=== PATIENT | male | born 1985 | race Caucasian/White ===

== ENCOUNTER 2016-07-23 20:26 | Emergency (ER) | payer MEDICARE, OTHER ==
[2016-07-23 20:55] VITALS: BP 150/75; PULSE 70; RESP 16; TEMP 99.3
--- NOTE | 2016-07-23 21:11 | ED ---
ENT HPI - General Chief complaint: ENT Stated complaint: burning in throat Time Seen by Provider: 07/23/16 20:59 Source: patient, RN notes reviewed Mode of arrival: ambulatory Limitations: no limitations - History of Present Illness Initial comments: This is a pleasant 31-year-old male presents emergency department complaining of a scratchy throat, runny nose, and postnasal drainage. Patient also states he has nasal congestion. Patient has not had a cough for a fever. Patient denies any neck stiffness. Patient denies any shortness of breath or chest pain. No abdominal pain. No nausea or vomiting. No skin rashes or lesions. No ear pain. No difficulty swallowing - Related Data Home Medications Medication Instructions Recorded Confirmed ARIPiprazole [Abilify] 5 mg PO DAILY 11/02/14 01/24/16 FLUoxetine HCL [Prozac Weekly] 90 mg PO WEEKLY 11/02/14 01/24/16 busPIRone HCL [Buspar] 30 mg PO BID 11/02/14 01/24/16 Indomethacin [Indocin] 25 mg PO TID 08/01/15 01/24/16 Previous Rx's Medication Instructions Recorded Loratadine [Claritin] 10 mg PO DAILY #30 tab 01/24/16 methylPREDNISolone [Medrol] 4 mg PO DIRECTED #1 tab.ds.pk 07/23/16 Allergies Allergy/AdvReac Type Severity Reaction Status Date / Time amphetamine aspartate Allergy Unknown Verified 01/24/16 22:24 [From Adderall] amphetamine sulfate Allergy Unknown Verified 01/24/16 22:24 [From Adderall] dextroamphetamine saccharate Allergy Unknown Verified 01/24/16 22:24 [From Adderall] dextroamphetamine sulfate Allergy Unknown Verified 01/24/16 22:24 [From Adderall] methylphenidate HCl Allergy Unknown Verified 01/24/16 22:24 [From Ritalin] Review of Systems ROS Statement: Those systems with pertinent positive or pertinent negative responses have been documented in the HPI. ROS Other: All systems not noted in ROS Statement are negative. Past Medical History Past Medical History: No Reported History Additional Past Medical History / Comment(s): OBSESSIVE COMPULSIVE DISORDER. History of Any Multi-Drug Resistant Organisms: None Reported Past Surgical History: No Surgical Hx Reported Past Psychological History: Anxiety Smoking Status: Never smoker Past Alcohol Use History: None Reported Past Drug Use History: None Reported General Exam - General Exam Comments Initial Comments: Well-developed, well-nourished male with no distress Limitations: no limitations General appearance: alert, in no apparent distress Head exam: Present: atraumatic, normocephalic, normal inspection Eye exam: Present: normal appearance, PERRL, EOMI. Absent: scleral icterus, conjunctival injection, periorbital swelling ENT exam: Present: normal exam, normal oropharynx, mucous membranes moist, TM's normal bilaterally, normal external ear exam Neck exam: Present: normal inspection, full ROM. Absent: tenderness, meningismus, lymphadenopathy Respiratory exam: Present: normal lung sounds bilaterally. Absent: respiratory distress, wheezes, rales, rhonchi, stridor Cardiovascular Exam: Present: regular rate, normal rhythm, normal heart sounds. Absent: systolic murmur, diastolic murmur, rubs, gallop, clicks GI/Abdominal exam: Present: soft, normal bowel sounds. Absent: distended, tenderness, guarding, rebound, rigid Extremities exam: Present: normal inspection, full ROM, normal capillary refill. Absent: tenderness, pedal edema, joint swelling, calf tenderness Back exam: Present: normal inspection Neurological exam: Present: alert, oriented X3, CN II-XII intact Psychiatric exam: Present: normal affect, normal mood Skin exam: Present: warm, dry, intact, normal color. Absent: rash Course Vital Signs 07/23/16 20:52 Temperature 99.3 F Pulse Rate 70 Respiratory 16 Rate Blood Pressure 150/75 O2 Sat by Pulse 98 Oximetry Medical Decision Making - Medical Decision Making Patient appears have a viral upper respiratory infection. Patient treated conservatively for viral infection. Patient educated on etiology and treatment measures. Return parameters discussed. Disposition Clinical Impression: Viral URI Disposition: HOME SELF-CARE Condition: Good Instructions: Cold Symptoms (ED) Additional Instructions: Alternate acetaminophen and ibuprofen, [id number], as directed for general discomfort. Follow-up as directed.Return to the ER at once if the symptoms worsen or problems or difficulties arise. Prescriptions: methylPREDNISolone [Medrol] 4 mg PO DIRECTED #1 tab.ds.pk Referrals: Radha Velasquez MD [Primary Care Provider] - 1-2 days Time of Disposition: 21:04
== END 2016-07-23 21:12 | disposition home or self-care (01) ==
LOC: EC 20:26
DX: J06.9 Acute upper respiratory infection, unspecified (principal); F41.9 Anxiety disorder, unspecified; F42.9 Obsessive-compulsive disorder, unspecified; Z79.1 Long term (current) use of non-steroidal anti-inflammatories (NSAID); Z79.899 Other long term (current) drug therapy; Z88.8 Allergy status to other drugs, medicaments and biological substances
CPT/HCPCS: 99283

== ENCOUNTER 2017-07-12 20:04 | Emergency (ER) | payer MEDICARE, OTHER ==
[2017-07-12 20:13] VITALS: BP 136/83; PULSE 73; RESP 16; TEMP 99.1
--- NOTE | 2017-07-12 21:12 | XR ---
EXAMINATION TYPE: XR chest 2V DATE OF EXAM: 07/12/2017 COMPARISON: NONE HISTORY: Productive cough TECHNIQUE: Frontal and lateral views of the chest are obtained. FINDINGS: Heart and mediastinum are normal. Lungs are clear. Diaphragm is normal. Bony thorax appear s normal. IMPRESSION: Normal chest. No change.
--- NOTE | 2017-07-12 22:20 | ED ---
General Adult HPI - General Chief complaint: Upper Respiratory Infection Stated complaint: cough/congestion Time Seen by Provider: 07/12/17 21:21 Source: patient, RN notes reviewed Mode of arrival: ambulatory Limitations: no limitations - History of Present Illness Initial comments: 32-year-old male presents to the emergency department for a chief complaint of cough 2 days. Patient states the cough started yesterday. Patient states it is a productive cough with colored sputum. Patient denies any chronic lung conditions. Patient denies smoking. Patient denies fevers or chills at home. Patient denies shortness of breath or difficulty breathing. Patient denies congestion and the face or sore throat. Patient has no other complaints at this time including shortness of breath, chest pain, abdominal pain, nausea or vomiting, headache, or visual changes. - Related Data Home Medications Medication Instructions Recorded Confirmed ARIPiprazole [Abilify] 5 mg PO DAILY 11/02/14 01/24/16 FLUoxetine HCL [Prozac Weekly] 90 mg PO WEEKLY 11/02/14 01/24/16 busPIRone HCL [Buspar] 30 mg PO BID 11/02/14 01/24/16 Indomethacin [Indocin] 25 mg PO TID 08/01/15 01/24/16 Previous Rx's Medication Instructions Recorded Loratadine [Claritin] 10 mg PO DAILY #30 tab 01/24/16 methylPREDNISolone [Medrol] 4 mg PO DIRECTED #1 tab.ds.pk 07/23/16 Azithromycin [Zithromax Z-pack] 250 mg PO DIRECTED #6 tab 07/12/17 predniSONE 50 mg PO DAILY #5 tablet 07/12/17 Allergies Allergy/AdvReac Type Severity Reaction Status Date / Time amphetamine aspartate Allergy Unknown Verified 07/12/17 20:13 [From Adderall] amphetamine sulfate Allergy Unknown Verified 07/12/17 20:13 [From Adderall] dextroamphetamine saccharate Allergy Unknown Verified 07/12/17 20:13 [From Adderall] dextroamphetamine sulfate Allergy Unknown Verified 07/12/17 20:13 [From Adderall] methylphenidate HCl Allergy Unknown Verified 07/12/17 20:13 [From Ritalin] Review of Systems ROS Statement: Those systems with pertinent positive or pertinent negative responses have been documented in the HPI. ROS Other: All systems not noted in ROS Statement are negative. Past Medical History Past Medical History: No Reported History Additional Past Medical History / Comment(s): OBSESSIVE COMPULSIVE DISORDER. History of Any Multi-Drug Resistant Organisms: None Reported Past Surgical History: No Surgical Hx Reported Past Psychological History: Anxiety Smoking Status: Never smoker Past Alcohol Use History: None Reported Past Drug Use History: None Reported General Exam Limitations: no limitations General appearance: alert, in no apparent distress Eye exam: Present: normal appearance, PERRL, EOMI. Absent: scleral icterus, conjunctival injection, periorbital swelling ENT exam: Present: normal exam, normal oropharynx, mucous membranes moist, TM's normal bilaterally, normal external ear exam Neck exam: Present: normal inspection. Absent: tenderness, meningismus, lymphadenopathy Respiratory exam: Present: normal lung sounds bilaterally. Absent: respiratory distress, wheezes, rales, rhonchi, stridor Cardiovascular Exam: Present: regular rate, normal rhythm, normal heart sounds. Absent: systolic murmur, diastolic murmur, rubs, gallop, clicks Course Vital Signs 07/12/17 20:08 Temperature 99.1 F Pulse Rate 73 Respiratory 16 Rate Blood Pressure 136/83 O2 Sat by Pulse 100 Oximetry Medical Decision Making - Medical Decision Making 32-year-old male presents to the emergency room for a chief complaint of cough 2 days. Patient denies any chronic lung condition such as asthma, COPD, smoking. Patient denies shortness of breath or difficulty breathing. Patient states he is coughing up mucus. X-ray done states no pneumonia as or acute lung abnormalities. Patient's vitals are within normal limits. No fevers here or at home. Patient will be discharged home with follow-up to primary care in 1 -2 days. He is to take azithromycin as well as prednisone. He is to return to the emergency department if he has any worsening symptoms including shortness of breath or difficulty breathing. Disposition Clinical Impression: Upper respiratory infection Disposition: HOME SELF-CARE Condition: Poor Instructions: Upper Respiratory Infection (ED) Additional Instructions: Please take prescriptions as directed. You may take over the counter cold medicine or decongestants. Please follow-up with primary care in 1-2 days. Return to the emergency department if you have any worsening symptoms, shortness of breath or difficult he breathing, or high fevers that cannot be reduced with Tylenol or Motrin. Prescriptions: Azithromycin [Zithromax Z-pack] 250 mg PO DIRECTED #6 tab predniSONE 50 mg PO DAILY #5 tablet Is patient prescribed a controlled substance at d/c from ED?: No Referrals: Radha Velasquez MD [Primary Care Provider] - 1-2 days Time of Disposition: 22:17
== END 2017-07-12 22:29 | disposition home or self-care (01) ==
LOC: EC 20:04
DX: J06.9 Acute upper respiratory infection, unspecified (principal); R05 Cough; F41.9 Anxiety disorder, unspecified; F42.9 Obsessive-compulsive disorder, unspecified; Z79.899 Other long term (current) drug therapy; Z88.8 Allergy status to other drugs, medicaments and biological substances
CPT/HCPCS: 71046; 99283

== ENCOUNTER 2018-02-21 23:18 | Emergency (ER) | payer MEDICARE, OTHER ==
[2018-02-21 23:28] VITALS: RESP 16
--- NOTE | 2018-02-22 01:35 | XR ---
EXAMINATION TYPE: XR chest 2V DATE OF EXAM: 02/22/2018 COMPARISON: NONE HISTORY: Chest pain TECHNIQUE: Frontal and lateral views of the chest are obtained. FINDINGS: Heart and mediastinum are normal. Lungs are clear. Diaphragm is normal. Bony thorax appear s normal. IMPRESSION: Normal chest. No change.
--- NOTE | 2018-02-22 01:59 | ED ---
Extremity Problem HPI - General Chief complaint: Extremity Problem,Nontraumatic Stated complaint: Rt Side/Chest Pain Time Seen by Provider: 02/22/18 01:08 Source: patient, RN notes reviewed, old records reviewed Mode of arrival: ambulatory Limitations: no limitations - History of Present Illness Initial comments: 32-year-old male presents for sensation of right-sided chest pain. Patient which is been having pains for the past week. It is worse to palpation over the right breasts and axillary. Patient denies any skin changes. Denies any falls or trauma. He denies any associated shortness of breath or cardiac description of chest pain. Denies palpitations. He has no history of heart disease. Patient reports he is right-handed. He does do a lot of work with his arms.Patient denies any recent fever, chills, shortness of breath, chest pain, back pain, abdominal pain, nausea vomiting, numbness or tingling, dysuria or hematuria, constipation or diarrhea, headaches or visual changes, or any other current symptoms - Related Data Home Medications Medication Instructions Recorded Confirmed ARIPiprazole [Abilify] 5 mg PO DAILY 11/02/14 01/24/16 FLUoxetine HCL [Prozac Weekly] 90 mg PO WEEKLY 11/02/14 01/24/16 busPIRone HCL [Buspar] 30 mg PO BID 11/02/14 01/24/16 Indomethacin [Indocin] 25 mg PO TID 08/01/15 01/24/16 Previous Rx's Medication Instructions Recorded Loratadine [Claritin] 10 mg PO DAILY #30 tab 01/24/16 methylPREDNISolone [Medrol] 4 mg PO DIRECTED #1 tab.ds.pk 07/23/16 Azithromycin [Zithromax Z-pack] 250 mg PO DIRECTED #6 tab 07/12/17 predniSONE 50 mg PO DAILY #5 tablet 07/12/17 Ibuprofen [Motrin] 600 mg PO Q8HR PRN #20 tab 02/22/18 Allergies Allergy/AdvReac Type Severity Reaction Status Date / Time amphetamine aspartate Allergy Unknown Verified 02/21/18 23:28 [From Adderall] amphetamine sulfate Allergy Unknown Verified 02/21/18 23:28 [From Adderall] dextroamphetamine saccharate Allergy Unknown Verified 02/21/18 23:28 [From Adderall] dextroamphetamine sulfate Allergy Unknown Verified 02/21/18 23:28 [From Adderall] methylphenidate HCl Allergy Unknown Verified 02/21/18 23:28 [From Ritalin] Review of Systems ROS Statement: Those systems with pertinent positive or pertinent negative responses have been documented in the HPI. ROS Other: All systems not noted in ROS Statement are negative. Past Medical History Past Medical History: No Reported History Additional Past Medical History / Comment(s): OBSESSIVE COMPULSIVE DISORDER. History of Any Multi-Drug Resistant Organisms: None Reported Past Surgical History: No Surgical Hx Reported Past Psychological History: Anxiety Smoking Status: Never smoker Past Alcohol Use History: None Reported Past Drug Use History: None Reported General Exam - General Exam Comments Initial Comments: Well-appearing 32-year-old male. No acute distress. General: Well appearing, well nourished, in no distress. Oriented x 3, normal mood and affect . Ambulating without difficulty. Skin: Good turgor, no rash, unusual bruising or prominent lesions Hair: Normal texture and distribution. HEENT: Head: Normocephalic, atraumatic, no visible or palpable masses, depressions, or scaring. Eyes: Visual acuity intact, conjunctiva clear, sclera non-icteric, EOM intact, PERRL. Neck: Supple, without lesions, bruits, or adenopathy, thyroid non-enlarged and non-tender Heart: No cardiomegaly or thrills; regular rate and rhythm, no murmur or gallop. is tender to palpation over the right breast and axilla. No bruising noted. Lungs: Clear to auscultation and percussion Abdomen: Bowel sounds normal, no tenderness, organomegaly, masses, or hernia Back: Spine normal without deformity or tenderness, no CVA tenderness Extremities: No amputations or deformities, cyanosis, edema or varicosities, peripheral pulses intact Musculoskeletal: Normal gait and station. No misalignment, asymmetry, crepitation, defects, tenderness, masses, effusions, decreased range of motion, instability, atrophy or abnormal strength or tone in the head, neck, spine, ribs , pelvis or extremities. Neurologic: CN 2-12 normal. Sensation to pain, touch, and proprioception normal. DTRs normal in upper and lower extremities. No pathologic reflexes. Psychiatric: Oriented X3, intact recent and remote memory, judgment and insight , normal mood and affect. Limitations: no limitations Course Vital Signs 02/21/18 02/22/18 23:26 02:18 Temperature 97.3 F L 98 F Pulse Rate 53 L 68 Respiratory 16 16 Rate Blood Pressure 149/89 140/73 O2 Sat by Pulse 100 99 Oximetry Medical Decision Making - Medical Decision Making Patient is a 32-year-old male presents today with 1 week of right-sided chest pain. Patient's pain seems muscular skeletal ablation. Worse with movement and palpation over the right axilla and breast area. There is no skin changes noted. Patient has no palpable masses. I discussed the patient's pain seems to be like a muscle strain. He does do a lot of work with his arms. Patient will be discharged at this time with anti-inflammatory medication and close follow up with primary care physician. His chest x-ray and EKG were reviewed to be normal. Patient agrees to treatment plan will comply. Return parameters were discussed. 02/22/18 01:59 EKG performed at 131 shows sinus bradycardia bother as normal EKG. Ventricular rate of 53 bpm.. Intervals 156 most seconds. QRS duration is 84 ms. QT QTc is 44/379 ms. - Radiology Data Radiology results: report reviewed Chest x-ray is negative for any acute coronary pulmonary process. Disposition Clinical Impression: Pain in right axilla Disposition: HOME SELF-CARE Condition: Good Instructions: Costochondritis (ED) Additional Instructions: Patient advised to follow-up with primary care provider. Motrin Tylenol for pain. Return to emergency department if any alarming signs or symptoms occur. Prescriptions: Ibuprofen [Motrin] 600 mg PO Q8HR PRN #20 tab PRN Reason: Pain Is patient prescribed a controlled substance at d/c from ED?: No Referrals: Radha Velasquez MD [Primary Care Provider] - 1-2 days Time of Disposition: 01:59
[2018-02-22 02:19] VITALS: BP 140/73; PULSE 68; TEMP 98
== END 2018-02-22 02:19 | disposition home or self-care (01) ==
LOC: EC 23:18
DX: M79.621 Pain in right upper arm (principal); F42.9 Obsessive-compulsive disorder, unspecified; F41.9 Anxiety disorder, unspecified; Z79.899 Other long term (current) drug therapy; Z88.8 Allergy status to other drugs, medicaments and biological substances
CPT/HCPCS: 71046; 93005; 99285

== ENCOUNTER → 2018-05-08 | Outpatient (CLI) | payer MEDICARE, OTHER ==
[2018-05-08 11:46] LABS: Basophils % (A) 0 %; Eosinophils # (A) 0.4 k/uL (0-0.7); Eosinophils % (A) 6 %; HCT 46.9 % (39.0-53.0); HGB 14.9 gm/dL (13.0-17.5); Lymphocytes # (A) 1.6 k/uL (1.0-4.8); Lymphocytes % (A) 28 %; MCH 26.4 pg (25.0-35.0); MCHC 31.7 g/dL (31.0-37.0); MCV 83.4 fL (80.0-100.0); Mean Platelet Volume 6.9; Monocytes # (A) 0.4 k/uL (0-1.0); Monocytes % (A) 7 %; Neutrophils # (A) 3.3 k/uL (1.3-7.7); Neutrophils % (A) 57 %; Platelet Count 223 k/uL (150-450); RBC 5.63 m/uL (4.30-5.90); RDW 13.3 % (11.5-15.5); WBC 5.9 k/uL (3.8-10.6)
[2018-05-08 15:57] LABS: Albumin 4.4 g/dL (3.80-4.90); Albumin/Globulin Ratio 2.2 (1.60-3.17); Anion Gap 5.2 mmol/L (4.00-12.00); Bilirubin, Conjugated 0.4 mg/dL (0.20-0.40); Carbon Dioxide 27.8 mmol/L (21.6-31.8); LDL Cholesterol,Calculated 102.2 mg/dL (0.0-131.0); Potassium 4.2 mmol/L (3.5-5.5); Total Bilirubin 1.4 mg/dL (0.3-1.2); Total Protein 6.4 g/dL (6.2-8.2); VLDL Calculation 24.8 mg/dL (5.00-40.00)
[2018-05-08 16:01] LABS: T4, Free (Free Thyroxine) 1.3 ng/dL (0.80-1.80)
== END ==
LOC: LABWHC1 10:52
PROVIDERS: ATTEND Nurse Practitioner Family
DX: Z51.81 Encounter for therapeutic drug level monitoring (principal); Z79.899 Other long term (current) drug therapy
CPT/HCPCS: 36415; 80048; 80061; 80076; 84439; 84443; 85025

== ENCOUNTER 2020-02-02 14:15 | Emergency (ER) | payer MEDICARE, OTHER ==
[2020-02-02 14:18] VITALS: BP 129/85; PULSE 102; RESP 18; TEMP 98.4
--- NOTE | 2020-02-02 14:30 | ED ---
Recheck HPI - General Chief Complaint: Recheck/Abnormal Lab/Rx Stated Complaint: COVID Test Time Seen by Provider: 02/02/20 14:24 Source: patient Mode of arrival: ambulatory Limitations: no limitations - History of Present Illness Initial Comments: 34-year-old male presenting today for chief complaint of wants coma test. Patient states that he had body aches headaches last week he states he has not had symptoms for 2 days. Patient states that he was pretty sure he had a fever. Patient states he has not had a fever or felt ill the last 2 days denies shortness of breath loss of taste smell chest pain and leg swelling or additional complaints upon arrival patient appears well and nontoxic distress he is afebrile - Related Data Home Medications Medication Instructions Recorded Confirmed ARIPiprazole [Abilify] 5 mg PO DAILY 11/02/14 01/24/16 FLUoxetine HCL [Prozac Weekly] 90 mg PO WEEKLY 11/02/14 01/24/16 busPIRone HCL [Buspar] 30 mg PO BID 11/02/14 01/24/16 Indomethacin [Indocin] 25 mg PO TID 08/01/15 01/24/16 Previous Rx's Medication Instructions Recorded Loratadine [Claritin] 10 mg PO DAILY #30 tab 01/24/16 methylPREDNISolone [Medrol] 4 mg PO DIRECTED #1 tab.ds.pk 07/23/16 Azithromycin [Zithromax Z-pack (6 250 mg PO DIRECTED #6 tab 07/12/17 tabs)] predniSONE 50 mg PO DAILY #5 tablet 07/12/17 Ibuprofen [Motrin] 600 mg PO Q8HR PRN #20 tab 02/22/18 Allergies Allergy/AdvReac Type Severity Reaction Status Date / Time amphetamine aspartate Allergy Unknown Verified 02/21/18 23:28 [From Adderall] amphetamine sulfate Allergy Unknown Verified 02/21/18 23:28 [From Adderall] dextroamphetamine saccharate Allergy Unknown Verified 02/21/18 23:28 [From Adderall] dextroamphetamine sulfate Allergy Unknown Verified 02/21/18 23:28 [From Adderall] methylphenidate HCl Allergy Unknown Verified 02/21/18 23:28 [From Ritalin] Review of Systems ROS Statement: Those systems with pertinent positive or pertinent negative responses have been documented in the HPI. ROS Other: All systems not noted in ROS Statement are negative. Past Medical History Past Medical History: No Reported History Additional Past Medical History / Comment(s): OBSESSIVE COMPULSIVE DISORDER. History of Any Multi-Drug Resistant Organisms: None Reported Past Surgical History: No Surgical Hx Reported Past Psychological History: Anxiety Smoking Status: Never smoker Past Alcohol Use History: None Reported Past Drug Use History: None Reported General Exam - General Exam Comments Initial Comments: General: The patient is awake and alert, in no distress, and does not appear acutely ill. Eye: Pupils are equal, round and reactive to light, extra-ocular movements are intact. No nystagmus. There is normal conjunctiva bilaterally. No signs of icterus. Neck: The neck is supple, there is no tenderness or JVD. No nuchal rigidity Cardiovascular: There is a regular rate and rhythm. No murmur, rub or gallop is appreciated. Respiratory: Lungs are clear to auscultation, respirations are non-labored, breath sounds are equal. No wheezes, stridor, rales, or rhonchi. Musculoskeletal: Normal ROM, no tenderness. Strength 5/5. Sensation intact. Radial pulses equal bilaterally 2+. Neurological: A&O x 3. CN II-XII intact grossly, There are no obvious motor or sensory deficits. Coordination appears grossly intact. Speech is normal. Skin: Skin is warm and dry and no rashes or lesions are noted. Psychiatric: Cooperative, appropriate mood & affect, normal judgment. Limitations: no limitations Course Vital Signs 02/02/20 14:16 Temperature 98.4 F Pulse Rate 102 H Respiratory 18 Rate Blood Pressure 129/85 O2 Sat by Pulse 100 Oximetry Medical Decision Making - Medical Decision Making Patient had symptoms 2 days ago that lasted a week. pt concerned of covid. needs test for work. denies current complaints. patient tested and discharge. michelle agreeable to care plan. Disposition Clinical Impression: Generalized body aches, Chills, Headache Disposition: HOME SELF-CARE Condition: Good Is patient prescribed a controlled substance at d/c from ED?: No Referrals: [facility] [Primary Care Provider] - 1-2 days Time of Disposition: 14:29
== END 2020-02-02 15:03 | disposition home or self-care (01) ==
LOC: EC 14:15
DX: R51.9 Headache, unspecified (principal); R50.9 Fever, unspecified; F41.9 Anxiety disorder, unspecified; F42.9 Obsessive-compulsive disorder, unspecified; Z20.828 Contact with and (suspected) exposure to other viral communicable diseases; Z88.8 Allergy status to other drugs, medicaments and biological substances; Z79.899 Other long term (current) drug therapy
CPT/HCPCS: 99284; U0003

== ENCOUNTER 2020-05-02 09:38 | Emergency (ER) | payer MEDICARE, OTHER ==
[2020-05-02 09:41] VITALS: TEMP 97.4
--- NOTE | 2020-05-02 10:01 | ED ---
General Adult HPI - General Chief complaint: Upper Respiratory Infection Stated complaint: AMISH Source: patient Mode of arrival: ambulatory Limitations: no limitations - History of Present Illness Initial comments: 34-year-old male with a past medical history of OCD presents to the emergency room for a chief complaint of cough. Patient states this is been ongoing for quite some time and he always has upper respiratory issues. States he feels phlegm in his throat which is worse at night and then makes him start to cough. Denies any fevers. Denies shortness of breath. Denies any chest pain.Patient has no other complaints at this time including shortness of breath, chest pain, abdominal pain, nausea or vomiting, headache, or visual changes. - Related Data Home Medications Medication Instructions Recorded Confirmed ARIPiprazole [Abilify] 2 mg PO DAILY 05/02/20 05/02/20 Albuterol Sulfate [Proair Hfa] 2 puff INHALATION RT-Q6H PRN 05/02/20 05/02/20 Cholecalciferol (Vitamin D3) 125 mcg PO DAILY 05/02/20 05/02/20 [Vitamin D3 (5000 Iu)] Naproxen Sodium [Aleve] 440 mg PO DAILY PRN 05/02/20 05/02/20 busPIRone HCl [Buspar] 10 mg PO BID 05/02/20 05/02/20 clomiPRAMINE [Anafranil] 50 mg PO HS 05/02/20 05/02/20 Previous Rx's Medication Instructions Recorded Famotidine [Pepcid] 20 mg PO BID #30 tablet 05/02/20 Allergies Allergy/AdvReac Type Severity Reaction Status Date / Time amphetamine aspartate Allergy Unknown Verified 05/02/20 10:46 [From Adderall] amphetamine sulfate Allergy Unknown Verified 05/02/20 10:46 [From Adderall] dextroamphetamine saccharate Allergy Unknown Verified 05/02/20 10:46 [From Adderall] dextroamphetamine sulfate Allergy Unknown Verified 05/02/20 10:46 [From Adderall] methylphenidate HCl Allergy Unknown Verified 05/02/20 10:46 [From Ritalin] Review of Systems ROS Statement: Those systems with pertinent positive or pertinent negative responses have been documented in the HPI. ROS Other: All systems not noted in ROS Statement are negative. Past Medical History Past Medical History: No Reported History Additional Past Medical History / Comment(s): OBSESSIVE COMPULSIVE DISORDER. History of Any Multi-Drug Resistant Organisms: None Reported Past Surgical History: No Surgical Hx Reported Past Psychological History: Anxiety Smoking Status: Never smoker Past Alcohol Use History: None Reported Past Drug Use History: None Reported General Exam Limitations: no limitations General appearance: alert, in no apparent distress Head exam: Present: atraumatic, normocephalic, normal inspection Eye exam: Present: normal appearance, PERRL, EOMI. Absent: scleral icterus, conjunctival injection, periorbital swelling ENT exam: Present: normal exam, normal oropharynx, mucous membranes moist, TM's normal bilaterally, normal external ear exam Neck exam: Present: normal inspection, full ROM. Absent: tenderness, meningismus, lymphadenopathy Respiratory exam: Present: normal lung sounds bilaterally. Absent: respiratory distress, wheezes, rales, rhonchi, stridor Cardiovascular Exam: Present: regular rate, normal rhythm, normal heart sounds. Absent: systolic murmur, diastolic murmur, rubs, gallop, clicks GI/Abdominal exam: Present: soft, normal bowel sounds. Absent: distended, tenderness, guarding, rebound, rigid Course Vital Signs 05/02/20 09:39 Temperature 97.4 F L Pulse Rate 66 Respiratory 20 Rate Blood Pressure 149/101 O2 Sat by Pulse 99 Oximetry Medical Decision Making - Medical Decision Making Vitals are stable. Covid is negative. Chest x-ray shows no acute process. No fevers or evidence for pneumonia. Patient does state this has been ongoing for quite some time and worsens at night. It is possible his symptoms are related to reflux. We will try to start him on an antacid before bed to see if this helps. He will follow-up with his doctor. He will return here for any worsening symptoms. - Lab Data Lab Results 05/02/20 Range/Units 10:22 Coronavirus (PCR) Not Detected (Not Detectd) Disposition Clinical Impression: Cough Disposition: HOME SELF-CARE Condition: Good Instructions (If sedation given, give patient instructions): Chronic Cough (ED) Additional Instructions: Please follow up with primary care to discuss this chronic cough. Try Pepcid. Follow-up with your doctor in one to 2 days. Return to the emergency room for any worsening symptoms. Prescriptions: Famotidine [Pepcid] 20 mg PO BID #30 tablet Is patient prescribed a controlled substance at d/c from ED?: No Referrals: [facility] [Primary Care Provider] - 1-2 days Time of Disposition: 11:45
--- NOTE | 2020-05-02 10:25 | XR ---
EXAMINATION TYPE: XR chest 2V DATE OF EXAM: 05/02/2020 COMPARISON: 02/22/2018 HISTORY: 34-year-old male with cough TECHNIQUE: PA and lateral views FINDINGS: The cardiomediastinal silhouette, aorta, and pulmonary vasculature are within normal limits. Lungs an d pleural spaces are clear. IMPRESSION: No acute process seen.
[2020-05-02 12:39] VITALS: BP 141/90; PULSE 75; RESP 18
== END 2020-05-02 12:43 | disposition home or self-care (01) ==
LOC: EC 09:38
DX: R05 Cough (principal); F41.9 Anxiety disorder, unspecified; Z20.828 Contact with and (suspected) exposure to other viral communicable diseases; Z79.899 Other long term (current) drug therapy
CPT/HCPCS: 71046; 87635; 99285

== ENCOUNTER 2020-07-13 21:45 | Emergency (ER) | payer MEDICARE, OTHER ==
[2020-07-13 21:58] VITALS: BP 157/107; PULSE 82; RESP 20; TEMP 98.3
[2020-07-13] MEDS ORDERED: PROCHLORPERAZINE 5 MG TAB PO STA (22:01)
[2020-07-13] MEDS ORDERED: ONDANSETRON ODT 4 MG TAB PO STA (22:01)
--- NOTE | 2020-07-13 22:01 | ED ---
Nausea/Vomiting/Diarrhea HPI - General Chief complaint: Nausea/Vomiting/Diarrhea Stated complaint: cough, vomiting Time Seen by Provider: 07/13/20 22:00 Source: patient Mode of arrival: ambulatory Limitations: no limitations - Related Data Home Medications Medication Instructions Recorded Confirmed ARIPiprazole [Abilify] 2 mg PO DAILY 05/02/20 05/02/20 Albuterol Sulfate [Proair Hfa] 2 puff INHALATION RT-Q6H PRN 05/02/20 05/02/20 Cholecalciferol (Vitamin D3) 125 mcg PO DAILY 05/02/20 05/02/20 [Vitamin D3 (5000 Iu)] Naproxen Sodium [Aleve] 440 mg PO DAILY PRN 05/02/20 05/02/20 busPIRone HCl [Buspar] 10 mg PO BID 05/02/20 05/02/20 clomiPRAMINE [Anafranil] 50 mg PO HS 05/02/20 05/02/20 Previous Rx's Medication Instructions Recorded Famotidine [Pepcid] 20 mg PO BID #30 tablet 05/02/20 Allergies Allergy/AdvReac Type Severity Reaction Status Date / Time amphetamine aspartate Allergy Unknown Verified 07/13/20 21:58 [From Adderall] amphetamine sulfate Allergy Unknown Verified 07/13/20 21:58 [From Adderall] dextroamphetamine saccharate Allergy Unknown Verified 07/13/20 21:58 [From Adderall] dextroamphetamine sulfate Allergy Unknown Verified 07/13/20 21:58 [From Adderall] methylphenidate HCl Allergy Unknown Verified 07/13/20 21:58 [From Ritalin] Review of Systems ROS Statement: Those systems with pertinent positive or pertinent negative responses have been documented in the HPI. ROS Other: All systems not noted in ROS Statement are negative. Past Medical History Past Medical History: No Reported History Additional Past Medical History / Comment(s): OBSESSIVE COMPULSIVE DISORDER. History of Any Multi-Drug Resistant Organisms: None Reported Past Surgical History: No Surgical Hx Reported Past Psychological History: Anxiety Smoking Status: Never smoker Past Alcohol Use History: None Reported Past Drug Use History: None Reported General Exam Limitations: no limitations Course Vital Signs 07/13/20 21:53 Temperature 98.3 F Pulse Rate 82 Respiratory 20 Rate Blood Pressure 157/107 O2 Sat by Pulse 96 Oximetry Disposition Clinical Impression: Food poisoning, Nausea & vomiting Disposition: HOME SELF-CARE Condition: Good Instructions (If sedation given, give patient instructions): Acute Nausea and Vomiting (ED) Is patient prescribed a controlled substance at d/c from ED?: No Referrals: [facility] [Primary Care Provider] - 1-2 days
[2020-07-13] MEDS ORDERED: ONDANSETRON 4 MG ODT STARTER PACK 2 TAB BTL PO STA (22:24)
--- NOTE | 2020-07-13 22:42 | XR ---
EXAMINATION TYPE: XR abdomen acute w cxr DATE OF EXAM: 07/13/2020 COMPARISON: 05/02/2020 HISTORY: Pain TECHNIQUE: 4 views FINDINGS: Heart and mediastinum are normal. Lungs are clear. Diaphragm is normal. Bony thorax is inta ct. Pulmonary vascularity is normal. The bowel gas pattern is normal. There is no sign of intestinal obstruction or pneumoperitoneum. Feca l pattern is normal. There are no pathologic calcifications over the kidneys. IMPRESSION: Normal chest. No change compared to old exam. Nonacute abdomen.
== END 2020-07-13 22:59 | disposition home or self-care (01) ==
LOC: EC 21:45
DX: A05.9 Bacterial foodborne intoxication, unspecified (principal); F41.9 Anxiety disorder, unspecified
CPT/HCPCS: 74022; 99283; S0183; S0119

== ENCOUNTER 2021-04-14 20:48 | Emergency (ER) | payer MEDICARE, OTHER ==
[2021-04-14 20:59] VITALS: RESP 20
[2021-04-14] MEDS ORDERED: SODIUM CHLORIDE 0.9% 1,000 ML IV ONE (22:01)
--- NOTE | 2021-04-14 22:02 | ED ---
General Adult HPI - General Chief complaint: Nausea/Vomiting/Diarrhea Stated complaint: Body Achs Time Seen by Provider: 04/14/21 21:28 Source: patient, RN notes reviewed, old records reviewed Mode of arrival: ambulatory - History of Present Illness Initial comments: 35-year-old male presents for evaluation of epigastric pain, nausea, and cough cold symptoms. He states that he had been sick for the past several days with nasal congestion. He states he symptoms improved however he has persistent nausea and epigastric abdominal pain. No chest pain. - Related Data Home Medications Medication Instructions Recorded Confirmed ARIPiprazole [Abilify] 2 mg PO DAILY 05/02/20 05/02/20 Albuterol Sulfate [Proair Hfa] 2 puff INHALATION RT-Q6H PRN 05/02/20 05/02/20 Cholecalciferol (Vitamin D3) 125 mcg PO DAILY 05/02/20 05/02/20 [Vitamin D3 (5000 Iu)] Naproxen Sodium [Aleve] 440 mg PO DAILY PRN 05/02/20 05/02/20 busPIRone HCl [Buspar] 10 mg PO BID 05/02/20 05/02/20 clomiPRAMINE [Anafranil] 50 mg PO HS 05/02/20 05/02/20 Previous Rx's Medication Instructions Recorded Famotidine [Pepcid] 20 mg PO BID #30 tablet 05/02/20 Docusate [Colace] 100 mg PO BID #60 capsule 03/19/21 Phenyleph/Mineral Oil/Petrolat 1 applic RECTAL TID #28 gm 03/19/21 [Preparation H Ointment] Allergies Allergy/AdvReac Type Severity Reaction Status Date / Time amphetamine aspartate Allergy Unknown Verified 04/14/21 20:59 [From Adderall] amphetamine sulfate Allergy Unknown Verified 04/14/21 20:59 [From Adderall] dextroamphetamine saccharate Allergy Unknown Verified 04/14/21 20:59 [From Adderall] dextroamphetamine sulfate Allergy Unknown Verified 04/14/21 20:59 [From Adderall] methylphenidate HCl Allergy Unknown Verified 04/14/21 20:59 [From Ritalin] Review of Systems ROS Statement: Those systems with pertinent positive or pertinent negative responses have been documented in the HPI. ROS Other: All systems not noted in ROS Statement are negative. Past Medical History Past Medical History: No Reported History Additional Past Medical History / Comment(s): OBSESSIVE COMPULSIVE DISORDER. History of Any Multi-Drug Resistant Organisms: None Reported Past Surgical History: No Surgical Hx Reported Past Psychological History: Anxiety Smoking Status: Never smoker Past Alcohol Use History: None Reported Past Drug Use History: None Reported General Exam General appearance: alert, in no apparent distress Head exam: Present: atraumatic, normocephalic Eye exam: Present: normal appearance, PERRL Neck exam: Present: normal inspection. Absent: tenderness, meningismus Respiratory exam: Present: normal lung sounds bilaterally. Absent: respiratory distress, wheezes Cardiovascular Exam: Present: regular rate, normal rhythm GI/Abdominal exam: Present: soft, tenderness (In the epigastrium). Absent: distended, guarding, rebound Extremities exam: Present: normal inspection, normal capillary refill. Absent: calf tenderness Neurological exam: Present: alert. Absent: motor sensory deficit Skin exam: Present: warm, dry, intact. Absent: cyanosis, diaphoretic Course Vital Signs 04/14/21 20:57 Temperature 97.6 F Pulse Rate 107 H Respiratory 20 Rate Blood Pressure 150/99 O2 Sat by Pulse 98 Oximetry Medical Decision Making - Medical Decision Making 35-year-old male with generalized body ache, nausea vomiting, cough cold symptoms and diarrhea. Patient was initially mildly tender in the epigastrium. This did resolve without specific treatment. He has some mild leukocytosis. He has normal electrolytes. His bilirubin is mildly elevated without transami nitis. He has a normal urinalysis. Coronavirus testing is negative. Did reevaluate the patient is resting comfortably with stable vitals. He has no further abdominal pain or vomiting. We did discuss return parameters at length. Patient is agreeable. - Lab Data Result diagrams: 04/14/21 22:09 04/14/21 22:09 Lab Results 04/14/21 04/14/21 04/14/21 Range/Units 21:41 22:09 22:09 WBC 11.7 H (3.8-10.6) k/uL RBC 6.15 H (4.30-5.90) m/uL Hgb 17.3 (13.0-17.5) gm/dL Hct 51.0 (39.0-53.0) % MCV 83.0 (80.0-100.0) fL MCH 28.1 (25.0-35.0) pg MCHC 33.9 (31.0-37.0) g/dL RDW 13.3 (11.5-15.5) % Plt Count 197 (150-450) k/uL MPV 8.0 Neutrophils % Not Reportable Neutrophils % (Manual) 93 % Band Neuts % (Manual) 1 % Lymphocytes % Not Reportable Lymphocytes % (Manual) 3 % Monocytes % Not Reportable Monocytes % (Manual) 3 % Eosinophils % Not Reportable Basophils % Not Reportable Neutrophils # Not Reportable Neutrophils # (Manual) 10.90 H (1.3-7.7) k/uL Lymphocytes # Not Reportable Lymphocytes # (Manual) 0.35 L (1.0-4.8) k/uL Monocytes # Not Reportable Monocytes # (Manual) 0.35 (0-1.0) k/uL Eosinophils # Not Reportable Basophils # Not Reportable Nucleated RBCs 0 (0-0) /100 WBC Manual Slide Review Performed RBC Morphology Normal PT 11.0 (9.0-12.0) sec INR 1.0 (<1.2) APTT 26.0 (22.0-30.0) sec Sodium (137-145) mmol/L Potassium (3.5-5.1) mmol/L Chloride (98-107) mmol/L Carbon Dioxide (22-30) mmol/L Anion Gap mmol/L BUN (9-20) mg/dL Creatinine (0.66-1.25) mg/dL Est GFR (CKD-EPI)AfAm (>60 ml/min/1.73 sqM) Est GFR (CKD-EPI)NonAf (>60 ml/min/1.73 sqM) Glucose (74-99) mg/dL Plasma Lactic Acid [place] (0.7-2.0) mmol/L Calcium (8.4-10.2) mg/dL Total Bilirubin (0.2-1.3) mg/dL AST (17-59) U/L ALT (4-49) U/L Alkaline Phosphatase (38-126) U/L Total Protein (6.3-8.2) g/dL Albumin (3.5-5.0) g/dL Amylase (30-110) U/L Lipase (23-300) U/L Urine Color Urine Appearance (Clear) Urine pH (5.0-8.0) Ur Specific [place] (1.001-1.035) Urine Protein (Negative) Urine Glucose (UA) (Negative) Urine Ketones (Negative) Urine Blood (Negative) Urine Nitrite (Negative) Urine Bilirubin (Negative) Urine Urobilinogen (<2.0) mg/dL Ur Leukocyte Esterase (Negative) Urine RBC (0-5) /hpf Urine WBC (0-5) /hpf Ur Squamous Epith Cells (0-4) /hpf Urine Mucus (None) /hpf Coronavirus (PCR) Not Detected (Not Detectd) 04/14/21 04/14/21 04/14/21 Range/Units 22:09 22:09 22:13 WBC (3.8-10.6) k/uL RBC (4.30-5.90) m/uL Hgb (13.0-17.5) gm/dL Hct (39.0-53.0) % MCV (80.0-100.0) fL MCH (25.0-35.0) pg MCHC (31.0-37.0) g/dL RDW (11.5-15.5) % Plt Count (150-450) k/uL MPV Neutrophils % Neutrophils % (Manual) % Band Neuts % (Manual) % Lymphocytes % Lymphocytes % (Manual) % Monocytes % Monocytes % (Manual) % Eosinophils % Basophils % Neutrophils # Neutrophils # (Manual) (1.3-7.7) k/uL Lymphocytes # Lymphocytes # (Manual) (1.0-4.8) k/uL Monocytes # Monocytes # (Manual) (0-1.0) k/uL Eosinophils # Basophils # Nucleated RBCs (0-0) /100 WBC Manual Slide Review RBC Morphology PT (9.0-12.0) sec INR (<1.2) APTT (22.0-30.0) sec Sodium 137 (137-145) mmol/L Potassium 5.2 H (3.5-5.1) mmol/L Chloride 104 (98-107) mmol/L Carbon Dioxide 19 L (22-30) mmol/L Anion Gap 14 mmol/L BUN 13 (9-20) mg/dL Creatinine 0.90 (0.66-1.25) mg/dL Est GFR (CKD-EPI)AfAm >90 (>60 ml/min/1.73 sqM) Est GFR (CKD-EPI)NonAf >90 (>60 ml/min/1.73 sqM) Glucose 120 H (74-99) mg/dL Plasma Lactic Acid [place] 1.8 (0.7-2.0) mmol/L Calcium 9.1 (8.4-10.2) mg/dL Total Bilirubin 2.4 H (0.2-1.3) mg/dL AST 43 (17-59) U/L ALT 29 (4-49) U/L Alkaline Phosphatase 86 (38-126) U/L Total Protein 8.7 H (6.3-8.2) g/dL Albumin 5.1 H (3.5-5.0) g/dL Amylase 77 (30-110) U/L Lipase 36 (23-300) U/L Urine Color Yellow Urine Appearance Clear (Clear) Urine pH 6.0 (5.0-8.0) Ur Specific [place] 1.034 (1.001-1.035) Urine Protein 1+ H (Negative) Urine Glucose (UA) Negative (Negative) Urine Ketones Negative (Negative) Urine Blood Negative (Negative) Urine Nitrite Negative (Negative) Urine Bilirubin Negative (Negative) Urine Urobilinogen 2.0 (<2.0) mg/dL Ur Leukocyte Esterase Negative (Negative) Urine RBC 1 (0-5) /hpf Urine WBC 2 (0-5) /hpf Ur Squamous Epith Cells <1 (0-4) /hpf Urine Mucus Many H (None) /hpf Coronavirus (PCR) (Not Detectd) Disposition Clinical Impression: Viral syndrome, Dehydration Disposition: HOME SELF-CARE Condition: Fair Instructions (If sedation given, give patient instructions): Acute Nausea and Vomiting (ED), Acute Diarrhea (ED) Is patient prescribed a controlled substance at d/c from ED?: No Referrals: [facility] [Primary Care Provider] - 1-2 days Time of Disposition: 22:57
[2021-04-14 22:24] LABS: HGB 17.3 gm/dL (13.0-17.5); MCH 28.1 pg (25.0-35.0); MCHC 33.9 g/dL (31.0-37.0); Platelet Count 197 k/uL (150-450); RBC 6.15 m/uL (4.30-5.90); RDW 13.3 % (11.5-15.5); WBC 11.7 k/uL (3.8-10.6)
[2021-04-14 22:38] LABS: Appearance,Urine Clear (Clear); Bilirubin,Urine Negative (Negative); Blood,Urine Negative (Negative); Color,Urine Yellow; Glucose,Urine (UA) Negative (Negative); Ketones,Urine Negative (Negative); Leukocyte Esterase,Urine Negative (Negative); Mucus,Urine Many /hpf; Nitrite,Urine Negative (Negative); Protein,Urine 1+ (Negative); RBC,Urine 1 /hpf (0-5); Specific Gravity,Urine 1.034 (1.001-1.035); Squamous Epithelial Cell,Urine <1 /hpf (0-4); WBC,Urine 2 /hpf (0-5)
[2021-04-14 22:44] LABS: Band Neutrophils % 1 %; Lymphocytes # (M) 0.35 k/uL (1.0-4.8); Monocytes # (M) 0.35 k/uL (0-1.0); Neutrophils % (M) 93 %; Nucleated Red Blood Cells 0 /100 WBC (0-0); Total Cells Counted 100
[2021-04-14 22:46] LABS: RBC Morphology Normal
[2021-04-14 22:49] LABS: ALT 29 U/L (4-49); AST 43 U/L (17-59); African American GFR (CKD) >90 (>60 ml/min/1.73 sqM); Albumin 5.1 g/dL (3.5-5.0); Alkaline Phosphatase 86 U/L (38-126); Amylase 77 U/L (30-110); Anion Gap 14 mmol/L; Blood Urea Nitrogen 13 mg/dL (9-20); Calcium 9.1 mg/dL (8.4-10.2); Carbon Dioxide 19 mmol/L (22-30); Chloride 104 mmol/L (98-107); Glucose 120 mg/dL (74-99); Lipase 36 U/L (23-300); Non-African American GFR(CKD) >90 (>60 ml/min/1.73 sqM); Potassium 5.2 mmol/L (3.5-5.1); Sodium 137 mmol/L (137-145); Total Bilirubin 2.4 mg/dL (0.2-1.3); Total Protein 8.7 g/dL (6.3-8.2)
[2021-04-14 23:54] VITALS: BP 134/82; PULSE 98; TEMP 97.9
== END 2021-04-14 23:54 | disposition home or self-care (01) ==
LOC: EC 20:48
DX: B34.9 Viral infection, unspecified (principal); E86.0 Dehydration; Z20.822 Contact with and (suspected) exposure to COVID-19; F42.9 Obsessive-compulsive disorder, unspecified; F41.9 Anxiety disorder, unspecified; Z88.8 Allergy status to other drugs, medicaments and biological substances; Z79.899 Other long term (current) drug therapy
CPT/HCPCS: 36415; 80053; 81001; 82150; 83605; 83690; 85025; 85610; 85730; 87635; 96360; 96361; 99284

== ENCOUNTER 2022-02-09 13:31 | Emergency (ER) | payer MEDICARE, OTHER ==
[2022-02-09 13:37] VITALS: RESP 16
--- NOTE | 2022-02-09 14:31 | ED ---
General Adult HPI - General Chief complaint: Upper Respiratory Infection Stated complaint: cough, congestion, chills Time Seen by Provider: 02/09/22 13:44 Source: patient Mode of arrival: ambulatory Limitations: no limitations - History of Present Illness Initial comments: Dictation was produced using [employer] dictation software. please excuse any gr ammatical, word or spelling errors. Chief Complaint: 36-year-old male presents emergency department for 3 days of cough, body aches, chills and anosmia History of Present Illness: 36-year-old male who has no significant comorbidities. Patient states he's been having respiratory infectious symptoms and constitutional symptoms for the last 2-3 days. It exposes his mother was also ill with respiratory infectious symptoms. Patient denies any pain complaints. The ROS documented in this emergency department record has been reviewed and confirmed by me. Those systems with pertinent positive or negative responses have been documented in the HPI. All other systems are other negative and/or noncontributory. PHYSICAL EXAM: General Impression: Alert and oriented x3, not in acute distress HEENT: Normocephalic atraumatic, extra-ocular movements intact, pupils equal and reactive to light bilaterally, mucous membranes moist. Cardiovascular: Heart regular rate and rhythm Chest: Able to complete full sentences, no retractions, no tachypnea Musculoskeletal: no peripheral edema Motor: no focal deficits noted Neurological: CN II-XII grossly intact, no focal motor or sensory deficits noted Skin: Intact with no visualized rashes Psych: Normal affect and mood ED course: 36-year-old male presents to emergency Department with 3 days of URI. Vital signs upon arrival are within acceptable limits. Nursing notes and chart review was performed Patient influenza A positive. Patient prescription for Tamiflu. Patient discharged. - Related Data Home Medications Medication Instructions Recorded Confirmed Albuterol Sulfate [Proair Hfa] 2 puff INHALATION RT-Q6H PRN 05/02/20 04/14/21 Cholecalciferol (Vitamin D3) 125 mcg PO DAILY 05/02/20 04/14/21 [Vitamin D3 (5000 Iu)] busPIRone HCl [Buspar] 20 mg PO DAILY 05/02/20 04/14/21 clomiPRAMINE [Anafranil] 50 mg PO HS 05/02/20 04/14/21 Brexpiprazole [Rexulti] 0.5 mg PO DAILY 04/14/21 04/14/21 Hydrocortisone Cream 1 applic TOPICAL BID 04/14/21 04/14/21 [Hydrocortisone 2.5% Cream] Rosuvastatin [Crestor] 10 mg PO DAILY 04/14/21 04/14/21 Previous Rx's Medication Instructions Recorded Docusate [Colace] 100 mg PO BID #60 capsule 03/19/21 Phenyleph/Mineral Oil/Petrolat 1 applic RECTAL TID #28 gm 03/19/21 [Preparation H Ointment] Oseltamivir [Tamiflu] 75 mg PO Q12HR 5 Days #10 cap 02/09/22 Allergies Allergy/AdvReac Type Severity Reaction Status Date / Time amphetamine aspartate Allergy Unknown Verified 02/09/22 13:37 [From Adderall] amphetamine sulfate Allergy Unknown Verified 02/09/22 13:37 [From Adderall] dextroamphetamine saccharate Allergy Unknown Verified 02/09/22 13:37 [From Adderall] dextroamphetamine sulfate Allergy Unknown Verified 02/09/22 13:37 [From Adderall] methylphenidate HCl Allergy Unknown Verified 02/09/22 13:37 [From Ritalin] Review of Systems ROS Statement: Those systems with pertinent positive or pertinent negative responses have been documented in the HPI. ROS Other: All systems not noted in ROS Statement are negative. Past Medical History Past Medical History: No Reported History Additional Past Medical History / Comment(s): OBSESSIVE COMPULSIVE DISORDER. History of Any Multi-Drug Resistant Organisms: None Reported Past Surgical History: No Surgical Hx Reported Past Psychological History: Anxiety Smoking Status: Never smoker Past Alcohol Use History: None Reported Past Drug Use History: None Reported General Exam Limitations: no limitations Course Vital Signs 02/09/22 13:35 Temperature 98 F Pulse Rate 78 Respiratory 16 Rate Blood Pressure 140/90 O2 Sat by Pulse 98 Oximetry Medical Decision Making - Lab Data Lab Results 02/09/22 Range/Units 14:00 Influenza Type A (PCR) Detected A (Not Detectd) Influenza Type B (PCR) Not Detected (Not Detectd) RSV (PCR) Not Detected (Not Detectd) SARS-CoV-2 (PCR) Not Detected (Not Detectd) Disposition Clinical Impression: Influenza Disposition: HOME SELF-CARE Condition: Good Instructions (If sedation given, give patient instructions): Influenza (ED) Prescriptions: Oseltamivir [Tamiflu] 75 mg PO Q12HR 5 Days #10 cap Is patient prescribed a controlled substance at d/c from ED?: No Referrals: [facility] [Primary Care Provider] - 1-2 days Time of Disposition: 15:00
[2022-02-09 15:17] VITALS: BP 142/78; PULSE 82; TEMP 98.2
--- NOTE | 2022-02-10 12:59 | ED ---
Medical Decision Making - Lab Data Lab Results 02/09/22 Range/Units 14:00 Influenza Type A (PCR) Detected A (Not Detectd) Influenza Type B (PCR) Not Detected (Not Detectd) RSV (PCR) Not Detected (Not Detectd) SARS-CoV-2 (PCR) Not Detected (Not Detectd) Disposition Clinical Impression: Influenza Disposition: HOME SELF-CARE Condition: Good Instructions (If sedation given, give patient instructions): Influenza (ED) Prescriptions: Oseltamivir [Tamiflu] 75 mg PO Q12HR 5 Days #10 cap Oseltamivir [Tamiflu] 75 mg PO Q12HR 5 Days #10 cap Is patient prescribed a controlled substance at d/c from ED?: No Referrals: [facility] [Primary Care Provider] - 1-2 days
== END 2022-02-09 15:09 | disposition home or self-care (01) ==
LOC: EC 13:31
DX: J10.1 Influenza due to other identified influenza virus with other respiratory manifestations (principal); F41.9 Anxiety disorder, unspecified; Z20.822 Contact with and (suspected) exposure to COVID-19
CPT/HCPCS: 87636; 99283

== ENCOUNTER 2022-06-22 00:10 | Emergency (ER) | payer MEDICARE, OTHER ==
[2022-06-22 00:45] VITALS: RESP 18
--- NOTE | 2022-06-22 01:34 | ED ---
General Adult HPI - General Chief complaint: Abdominal Pain Stated complaint: constipation Time Seen by Provider: 06/22/22 00:18 Source: patient Mode of arrival: ambulatory - History of Present Illness Initial comments: Patient is a 37-year-old male presenting with chief complaint of constipation and rectal pain. Patient states been constipated for the last 5 days. He has had small bowel movements. States that 2 days ago he had rectal pain with bowel movements. No pain without bowel movements. There was a small streak of blood on the toilet paper. No dark stool or blood in the stool. No abdominal pain. No nausea or vomiting. No fevers or chills. No chest pain or difficulty breathing. No dysuria or hematuria. - Related Data Home Medications Medication Instructions Recorded Confirmed Albuterol Sulfate [Proair Hfa] 2 puff INHALATION RT-Q6H PRN 05/02/20 04/14/21 Cholecalciferol (Vitamin D3) 125 mcg PO DAILY 05/02/20 04/14/21 [Vitamin D3 (5000 Iu)] busPIRone HCl [Buspar] 20 mg PO DAILY 05/02/20 04/14/21 clomiPRAMINE [Anafranil] 50 mg PO HS 05/02/20 04/14/21 Brexpiprazole [Rexulti] 0.5 mg PO DAILY 04/14/21 04/14/21 Hydrocortisone Cream 1 applic TOPICAL BID 04/14/21 04/14/21 [Hydrocortisone 2.5% Cream] Rosuvastatin [Crestor] 10 mg PO DAILY 04/14/21 04/14/21 Previous Rx's Medication Instructions Recorded Docusate [Colace] 100 mg PO BID #60 capsule 03/19/21 Phenyleph/Mineral Oil/Petrolat 1 applic RECTAL TID #28 gm 03/19/21 [Preparation H Ointment] Oseltamivir [Tamiflu] 75 mg PO Q12HR 5 Days #10 cap 02/09/22 Oseltamivir [Tamiflu] 75 mg PO Q12HR 5 Days #10 cap 02/10/22 Allergies Allergy/AdvReac Type Severity Reaction Status Date / Time amphetamine aspartate Allergy Unknown Verified 06/22/22 00:17 [From Adderall] amphetamine sulfate Allergy Unknown Verified 06/22/22 00:17 [From Adderall] dextroamphetamine saccharate Allergy Unknown Verified 06/22/22 00:17 [From Adderall] dextroamphetamine sulfate Allergy Unknown Verified 06/22/22 00:17 [From Adderall] methylphenidate HCl Allergy Unknown Verified 06/22/22 00:17 [From Ritalin] Review of Systems ROS Statement: Those systems with pertinent positive or pertinent negative responses have been documented in the HPI. ROS Other: All systems not noted in ROS Statement are negative. Past Medical History Past Medical History: No Reported History Additional Past Medical History / Comment(s): OBSESSIVE COMPULSIVE DISORDER. History of Any Multi-Drug Resistant Organisms: None Reported Past Surgical History: No Surgical Hx Reported Past Psychological History: Anxiety Smoking Status: Never smoker Past Alcohol Use History: None Reported Past Drug Use History: None Reported General Exam Limitations: no limitations General appearance: alert, in no apparent distress Head exam: Present: atraumatic, normocephalic, normal inspection Eye exam: Present: normal appearance, EOMI. Absent: scleral icterus, periorbital swelling Neck exam: Present: normal inspection, full ROM Respiratory exam: Present: normal lung sounds bilaterally. Absent: respiratory distress, wheezes, rales, rhonchi, stridor Cardiovascular Exam: Present: regular rate, normal rhythm, normal heart sounds. Absent: systolic murmur, diastolic murmur, rubs, gallop, clicks GI/Abdominal exam: Present: soft. Absent: distended, tenderness, guarding, rebound, rigid Neurological exam: Present: alert, oriented X3, CN II-XII intact Psychiatric exam: Present: normal affect, normal mood Skin exam: Present: warm, dry, intact, normal color. Absent: rash Course Vital Signs 06/22/22 06/22/22 06/22/22 00:14 00:43 01:48 Temperature 97.6 F 98.5 F 98.3 F Pulse Rate 70 70 73 Respiratory 20 18 18 Rate Blood Pressure 163/98 143/87 139/92 O2 Sat by Pulse 98 98 95 Oximetry Medical Decision Making - Medical Decision Making Was pt. sent in by a medical professional or institution (, PA, LOWER IN SUPERVISOR, urgent care, hospital, or skilled nursing...) When possible be specific @ -[No] Did you speak to anyone other than the patient for history (EMS, parent, family, police, friend...)? What history was obtained from this source @ -[No] Did you review nursing and triage notes (agree or disagree)? Why? @ -[I reviewed and agree with nursing and triage notes] Were old charts reviewed (outside hosp., previous admission, EMS record, old EKG, old radiological studies, urgent care reports/EKG's, skilled nursing records)? Report findings @ -[No old charts were reviewed] Differential Diagnosis (chest pain, altered mental status, abdominal pain women, abdominal pain men, vaginal bleeding, weakness, fever, dyspnea, syncope, heada marin, dizziness, GI bleed, back pain, seizure, CVA, palpatations, mental health, musculoskeletal)? @ -Differential includes rectal fissure, bowel obstruction, constipation, rectal abscess, this is not an all inclusive list EKG interpreted by me (3pts min.). @ -[As above] X-rays interpreted by me (1pt min.). @ -KUB x-ray shows evidence of constipation, no acute process CT interpreted by me (1pt min.). @ -[None done] U/S interpreted by me (1pt. min.). @ -[None done] What testing was considered but not performed or refused? (CT, X-rays, U/S, labs)? Why? @ -[None] What meds were considered but not given or refused? Why? @ -[None] Did you discuss the management of the patient with other professionals (professionals i.e. , PA, LOWER IN SUPERVISOR, lab, RT, psych nurse, social science research assistant, logistic manager, teacher, civilian jail officer, wireless store manager)? Give summary @ -[No] Was smoking cessation discussed for >3mins.? @ -[No] Was critical care preformed (if so, how long)? @ -[No] Were there social determinants of health that impacted care today? How? (Homelessness, low income, unemployed, alcoholism, drug addiction, transportation, low edu. Level, literacy, decrease access to med. care, long term, rehab)? @ -[No] Was there de-escalation of care discussed even if they declined (Discuss DNR or withdrawal of care, Hospice)? DNR status @ -[No] What co-morbidities impacted this encounter? (DM, HTN, Smoking, COPD, CAD, Cancer, CVA, ARF, Chemo, Hep., AIDS, mental health diagnosis, sleep apnea, morbid obesity)? @ -[None] Was patient admitted / discharged? Hospital course, mention meds given and route, prescriptions, significant lab abnormalities, going to OR and other pertinent info. @ -Patient is a 37-year-old male presenting with chief complaint of constipation and rectal pain with bowel movements. Physical examination is unremarkable. KUB x-ray shows evidence of constipation. Patient is educated on constipation and rectal fissures. He is instructed to use daily fiber supplementation and MiraLAX. Use sitz baths as needed. Patient was offered a suppository but declined. Follow-up with PCP. Report back to ER with any new or worsening symptoms. Discussed return parameters and answered all questions. Patient conveyed verbal understanding and agreed to the plan. I discussed this case in detail with my attending Dr. Alvarenga Undiagnosed new problem with uncertain prognosis? @ -[No] Drug Therapy requiring intensive monitoring for toxicity (Heparin, Nitro, Insulin, Cardizem)? @ -[No] Were any procedures done? @ -[No] Diagnosis/symptom? @ -Anal fissure Acute, or Chronic, or Acute on Chronic? @ -Acute Uncomplicated (without systemic symptoms) or Complicated (systemic symptoms)? @ -Uncomplicated Side effects of treatment? @ -[No] Exacerbation, Progression, or Severe Exacerbation? @ -[No] Poses a threat to life or bodily function? How? (Chest pain, [place], [place], pneumonia, PE, COPD, DKA, ARF, appy, cholecystitis, CVA, Diverticulitis, Homicidal, Suicidal, threat to staff... and all critical care pts) @ -[No] Disposition Clinical Impression: Constipation, Anal fissure Disposition: HOME SELF-CARE Condition: Good Instructions (If sedation given, give patient instructions): Constipation (ED), Anal Fissure (ED), High Fiber Diet (ED) Additional Instructions: Follow-up with PCP. Report back to ER with any new or worsening symptoms. Use an wmre-tco-jbddnod fiber supplement daily, such as Metamucil. Use an wild-wya-nfiwjnk laxative such as MiraLAX to help prevent constipation. Use warm sitz baths to help with discomfort from anal fissure. Is patient prescribed a controlled substance at d/c from ED?: No Referrals: [facility] [Primary Care Provider] - 1-2 days Time of Disposition: 01:34
--- NOTE | 2022-06-22 01:44 | XR ---
EXAM: XR Abdomen, 1 View and XR Chest, 1 View CLINICAL HISTORY: ITS.REASON XR Reason: constipation TECHNIQUE: Frontal view of the chest and abdomen/pelvis. COMPARISON: No relevant prior studies available. FINDINGS: Lungs: Unremarkable. No consolidation. Pleural space: Unremarkable. No pneumothorax. Heart: Unremarkable. No cardiomegaly. Mediastinum: Unremarkable. Intraperitoneal space: No free air. Gastrointestinal tract: Unremarkable. No dilation. Bones/joints: Unremarkable. IMPRESSION: Normal chest and abdomen/pelvis x-rays.
[2022-06-22 01:49] VITALS: BP 139/92; PULSE 73; TEMP 98.3
== END 2022-06-22 03:04 | disposition home or self-care (01) ==
LOC: EC 00:10
DX: K59.00 Constipation, unspecified (principal); K60.2 Anal fissure, unspecified; F41.9 Anxiety disorder, unspecified; Z88.8 Allergy status to other drugs, medicaments and biological substances; Z79.899 Other long term (current) drug therapy
CPT/HCPCS: 74018; 99284

== ENCOUNTER 2023-05-13 09:31 | Emergency (ER) | payer MEDICARE, OTHER ==
[2023-05-13 10:08] VITALS: RESP 18; TEMP 97.7
--- NOTE | 2023-05-13 10:33 | ED ---
Abdominal Pain HPI - General Chief Complaint: Abdominal Pain Stated Complaint: Abd Pain Time Seen by Provider: 05/13/23 10:17 Source: patient, RN notes reviewed Mode of arrival: ambulatory Limitations: no limitations - History of Present Illness Initial Comments: This is a 37 year old male who presents to the emergency department for abdominal pain. Reports intermittent epigastric pain over the last couple of days. Denies any radiation of pain into the back. Denies any nausea/vomiting. States that he did have a bout of diarrhea yesterday. Over the last month has noticed that his stools were green and seem to float. Denies any history of similar symptoms in the past. MD Complaint: abdominal pain - Related Data Home Medications Medication Instructions Recorded Confirmed Pantoprazole [Protonix] 40 mg PO DAILY 05/13/23 05/13/23 busPIRone HCL [Buspar] 30 mg PO BID 05/13/23 05/13/23 lisinopriL [Zestril] 5 mg PO DAILY 05/13/23 05/13/23 Previous Rx's Medication Instructions Recorded Ibuprofen 600 mg PO Q8H PRN #20 tab 05/13/23 Allergies Allergy/AdvReac Type Severity Reaction Status Date / Time amphetamine aspartate Allergy Unknown Verified 05/13/23 13:00 [From Adderall] Childhood amphetamine sulfate Allergy Unknown Verified 05/13/23 13:00 [From Adderall] Childhood dextroamphetamine saccharate Allergy Unknown Verified 05/13/23 13:00 [From Adderall] Childhood dextroamphetamine sulfate Allergy Unknown Verified 05/13/23 13:00 [From Adderall] Childhood methylphenidate HCl Allergy Unknown Verified 05/13/23 13:00 [From Ritalin] Childhood Review of Systems ROS Statement: Those systems with pertinent positive or pertinent negative responses have been documented in the HPI. ROS Other: All systems not noted in ROS Statement are negative. Past Medical History Past Medical History: No Reported History Additional Past Medical History / Comment(s): OBSESSIVE COMPULSIVE DISORDER. History of Any Multi-Drug Resistant Organisms: None Reported Past Surgical History: No Surgical Hx Reported Past Psychological History: Anxiety Smoking Status: Never smoker Past Alcohol Use History: None Reported Past Drug Use History: None Reported General Exam Limitations: no limitations General appearance: alert, in no apparent distress Head exam: Present: atraumatic, normocephalic, normal inspection Respiratory exam: Present: normal lung sounds bilaterally. Absent: respiratory distress, wheezes, rales, rhonchi, stridor Cardiovascular Exam: Present: regular rate, normal rhythm, normal heart sounds. Absent: systolic murmur, diastolic murmur, rubs, gallop, clicks GI/Abdominal exam: Present: soft, tenderness (Epigastric), normal bowel sounds. Absent: distended Neurological exam: Present: alert, oriented X3, CN II-XII intact Psychiatric exam: Present: normal affect, normal mood Skin exam: Present: warm, dry, intact, normal color. Absent: rash Course Vital Signs 05/13/23 05/13/23 09:41 13:43 Temperature 97.7 F Pulse Rate 63 77 Respiratory 18 18 Rate Blood Pressure 160/93 161/92 O2 Sat by Pulse 98 99 Oximetry Medical Decision Making - Medical Decision Making This is a 37 year old male who presents to the emergency department for abdominal pain. Was pt. sent in by a medical professional or institution? @ -No Did you speak to anyone other than the patient for history? @ -No Did you review nursing and triage notes? @ -Yes, and I agree, it is accurate with regards to the patient's symptoms. Were old charts reviewed? @ -No Differential Diagnosis? @ -Differential Abdominal Pain Men: Appendicitis, cholecystitis, diverticulosis, ischemic bowel, pancreatitis, hepatitis, UTI, gastroenteritis, AAA, incarcerated hernia, bowel obstruction, constipation, inflammatory bowel, hepatitis, peptic ulcer disease, splenic infarction, perforated viscus, testicular torsion, this is not meant to be an all-inclusive list EKG interpreted by me (3pts min.)? @ -Not obtained X-rays interpreted by me (1pt min.)? @ -Not obtained CT interpreted by me (1pt min.)? @ -CT scan of the abdomen and pelvis obtained. My interpretation identifies no evidence of bowel wall thickening or free air. U/S interpreted by me (1pt. min.)? @ -Gallbladder ultrasound obtained. My interpretation identifies no evidence of cholelithiasis. What testing was considered but not performed? (CT, X-rays, U/S, labs)? Why? @ -None What meds were considered but not given? Why? @ -None Did you discuss the management of the patient with other professionals? @ -No Did you reconcile home meds? @ -No Was smoking cessation discussed for >3mins.? @ -No Was critical care preformed (if so, how long)? @ -No Were there social determinants of health that impacted care today? How? (Homelessness, low income, unemployed, alcoholism, drug addiction, transporta tion, low edu. Level, literacy, decrease access to med. care, shelter, rehab)? @ -No Was there de-escalation of care discussed even if they declined? (Discuss DNR or withdrawal of care, Hospice)? @ -No What co-morbidities impacted this encounter? (DM, HTN, Smoking, COPD, CAD, Cancer, CVA, Hep., AIDS, mental health diagnosis, sleep apnea, morbid obesity)? @ -None Was patient admitted / discharged? @ -Discharged. Lab work fairly unremarkable. Mildly elevated bilirubin is decreased when compared with prior. Gallbladder ultrasound obtained. He reportedly had a positive sonographic Cao sign, however no acute process was identified to account for this. We subsequently obtained a CT scan of the abdomen and pelvis. This identified tiny sludge in the dependent portion of the gallbladder as well as a small to moderate hiatal hernia. Pain well controlled in the emergency department and after pain medication had taken effect, Cao's sign on physical examination was negative. Patient requested DC home at that point with outpatient follow up. Rx for Ibuprofen provided with dosing instructions reviewed. Advised taking this with Tylenol if needed for pain control. Information for general surgery follow up provided, patient is advised to contact them for a follow up appointment regarding biliary sludge. He is also advised to follow a low fat and bland diet for the mean time to reduce the risk of symptom recurrence. Undiagnosed new problem with uncertain prognosis? @ -None Drug Therapy requiring intensive monitoring for toxicity (Heparin, Nitro, Insulin, Cardizem)? @ -None Were any procedures done? @ -None Diagnosis/symptom? @ -Biliary sludge, biliary colic Acute, or Chronic, or Acute on Chronic? @ -Acute Uncomplicated (without systemic symptoms) or Complicated (systemic symptoms)? @ -Uncomplicated Side effects of treatment? @ -None Exacerbation, Progression, or Severe Exacerbation] @ -Not applicable Poses a threat to life or bodily function? @ -No Return precautions reviewed in depth, the patient is instructed to return to the emergency department with any new, worsening, or concerning symptoms. Patient verbalized understanding. This case was discussed in detail with the attending ED physician, Dr. Ba. Presentation, findings, and treatment plan discussed in detail as well. - Lab Data Result diagrams: 05/13/23 10:34 05/13/23 10:34 Lab Results 05/13/23 05/13/23 05/13/23 Range/Units 10:34 10:34 10:34 WBC 10.2 (3.8-10.6) k/uL RBC 5.79 (4.30-5.90) m/uL Hgb 15.6 (13.0-17.5) gm/dL Hct 48.2 (39.0-53.0) % MCV 83.1 (80.0-100.0) fL MCH 27.0 (25.0-35.0) pg MCHC 32.5 (31.0-37.0) g/dL RDW 13.5 (11.5-15.5) % Plt Count 240 (150-450) k/uL MPV 7.8 Neutrophils % 75 % Lymphocytes % 17 % Monocytes % 5 % Eosinophils % 2 % Basophils % 0 % Neutrophils # 7.7 (1.3-7.7) k/uL Lymphocytes # 1.7 (1.0-4.8) k/uL Monocytes # 0.5 (0-1.0) k/uL Eosinophils # 0.2 (0-0.7) k/uL Basophils # 0.0 (0-0.2) k/uL Sodium 141 (137-145) mmol/L Potassium 4.3 (3.5-5.1) mmol/L Chloride 106 (98-107) mmol/L Carbon Dioxide 23 (22-30) mmol/L Anion Gap 12 mmol/L BUN 9 (9-20) mg/dL Creatinine 0.78 (0.66-1.25) mg/dL Est GFR (CKD-EPI)AfAm >90 (>60 ml/min/1.73 sqM) Est GFR (CKD-EPI)NonAf >90 (>60 ml/min/1.73 sqM) Glucose 105 H (74-99) mg/dL Plasma Lactic Acid [place] (0.7-2.0) mmol/L Calcium 9.5 (8.4-10.2) mg/dL Total Bilirubin 1.7 H (0.2-1.3) mg/dL AST 38 (17-59) U/L ALT 57 H (4-49) U/L Alkaline Phosphatase 79 (38-126) U/L Total Protein 7.8 (6.3-8.2) g/dL Albumin 4.7 (3.5-5.0) g/dL Amylase 61 (30-110) U/L Lipase 43 (23-300) U/L Urine Color Yellow Urine Appearance Clear (Clear) Urine pH 6.5 (5.0-8.0) Ur Specific [place] 1.030 (1.001-1.035) Urine Protein Trace H (Negative) Urine Glucose (UA) Negative (Negative) Urine Ketones Negative (Negative) Urine Blood Negative (Negative) Urine Nitrite Negative (Negative) Urine Bilirubin Negative (Negative) Urine Urobilinogen <2.0 (<2.0) mg/dL Ur Leukocyte Esterase Negative (Negative) 05/13/23 Range/Units 10:34 WBC (3.8-10.6) k/uL RBC (4.30-5.90) m/uL Hgb (13.0-17.5) gm/dL Hct (39.0-53.0) % MCV (80.0-100.0) fL MCH (25.0-35.0) pg MCHC (31.0-37.0) g/dL RDW (11.5-15.5) % Plt Count (150-450) k/uL MPV Neutrophils % % Lymphocytes % % Monocytes % % Eosinophils % % Basophils % % Neutrophils # (1.3-7.7) k/uL Lymphocytes # (1.0-4.8) k/uL Monocytes # (0-1.0) k/uL Eosinophils # (0-0.7) k/uL Basophils # (0-0.2) k/uL Sodium (137-145) mmol/L Potassium (3.5-5.1) mmol/L Chloride (98-107) mmol/L Carbon Dioxide (22-30) mmol/L Anion Gap mmol/L BUN (9-20) mg/dL Creatinine (0.66-1.25) mg/dL Est GFR (CKD-EPI)AfAm (>60 ml/min/1.73 sqM) Est GFR (CKD-EPI)NonAf (>60 ml/min/1.73 sqM) Glucose (74-99) mg/dL Plasma Lactic Acid [place] 1.7 (0.7-2.0) mmol/L Calcium (8.4-10.2) mg/dL Total Bilirubin (0.2-1.3) mg/dL AST (17-59) U/L ALT (4-49) U/L Alkaline Phosphatase (38-126) U/L Total Protein (6.3-8.2) g/dL Albumin (3.5-5.0) g/dL Amylase (30-110) U/L Lipase (23-300) U/L Urine Color Urine Appearance (Clear) Urine pH (5.0-8.0) Ur Specific [place] (1.001-1.035) Urine Protein (Negative) Urine Glucose (UA) (Negative) Urine Ketones (Negative) Urine Blood (Negative) Urine Nitrite (Negative) Urine Bilirubin (Negative) Urine Urobilinogen (<2.0) mg/dL Ur Leukocyte Esterase (Negative) - Radiology Data Radiology results: report reviewed, image reviewed Disposition Clinical Impression: Biliary sludge, Biliary colic Disposition: HOME SELF-CARE Instructions (If sedation given, give patient instructions): Biliary Colic (ED), Gallstones (ED), Low Fat Diet (ED) Additional Instructions: Return to the emergency department with any new, worsening, or concerning symptoms. Alternate with ibuprofen and Tylenol as needed for pain relief. Follow a low-fat and bland diet for the meantime to reduce the risk of symptom recurrence. Contact the general surgery office listed below for a follow up appointment and Follow up with your primary care provider in 1-2 days. Prescriptions: Ibuprofen 600 mg PO Q8H PRN #20 tab PRN Reason: Pain Is patient prescribed a controlled substance at d/c from ED?: No Referrals: [facility] [Primary Care Provider] - 1-2 days Val Rey MD [STAFF PHYSICIAN] - 1-2 days Time of Disposition: 13:29
[2023-05-13] MEDS: KETOROLAC 15 MG/ML 1 ML VIAL IVP STA (10:40)
[2023-05-13] MEDS: SODIUM CHLORIDE 0.9% 1,000 ML IV STA (10:40)
[2023-05-13] MEDS: FAMOTIDINE 20 MG/2 ML VIAL IV STA (10:40)
[2023-05-13 11:00] LABS: Appearance,Urine Clear (Clear); Bilirubin,Urine Negative (Negative); Blood,Urine Negative (Negative); Color,Urine Yellow; Glucose,Urine (UA) Negative (Negative); Ketones,Urine Negative (Negative); Leukocyte Esterase,Urine Negative (Negative); Nitrite,Urine Negative (Negative); PH, Urine 6.5 (5.0-8.0); Protein,Urine Trace (Negative); Urobilinogen,Urine <2.0 mg/dL (<2.0)
[2023-05-13 11:03] LABS: Basophils % (A) 0 %; Eosinophils # (A) 0.2 k/uL (0-0.7); Eosinophils % (A) 2 %; HCT 48.2 % (39.0-53.0); HGB 15.6 gm/dL (13.0-17.5); Lymphocytes # (A) 1.7 k/uL (1.0-4.8); Lymphocytes % (A) 17 %; MCHC 32.5 g/dL (31.0-37.0); MCV 83.1 fL (80.0-100.0); Mean Platelet Volume 7.8; Monocytes # (A) 0.5 k/uL (0-1.0); Monocytes % (A) 5 %; Neutrophils # (A) 7.7 k/uL (1.3-7.7); Neutrophils % (A) 75 %; Platelet Count 240 k/uL (150-450); RBC 5.79 m/uL (4.30-5.90); RDW 13.5 % (11.5-15.5); WBC 10.2 k/uL (3.8-10.6)
[2023-05-13 11:49] LABS: ALT 57 U/L (4-49); AST 38 U/L (17-59); African American GFR (CKD) >90 (>60 ml/min/1.73 sqM); Albumin 4.7 g/dL (3.5-5.0); Alkaline Phosphatase 79 U/L (38-126); Amylase 61 U/L (30-110); Anion Gap 12 mmol/L; Blood Urea Nitrogen 9 mg/dL (9-20); Calcium 9.5 mg/dL (8.4-10.2); Carbon Dioxide 23 mmol/L (22-30); Chloride 106 mmol/L (98-107); Glucose 105 mg/dL (74-99); Lipase 43 U/L (23-300); Non-African American GFR(CKD) >90 (>60 ml/min/1.73 sqM); Potassium 4.3 mmol/L (3.5-5.1); Sodium 141 mmol/L (137-145); Total Bilirubin 1.7 mg/dL (0.2-1.3); Total Protein 7.8 g/dL (6.3-8.2)
--- NOTE | 2023-05-13 11:56 | US ---
EXAMINATION TYPE: US gallbladder DATE OF EXAM: 05/13/2023 COMPARISON: NONE CLINICAL INDICATION: Male, 37 years old with history of Epigastric pain; Patient states epigastric pa in and hx of acid reflux. TECHNIQUE: Multiple sonographic images of the right upper quadrant are obtained. FINDINGS: EXAM MEASUREMENTS: Liver Length: 17.8 cm Gallbladder Wall: 0.2 cm CBD: 0.4 cm Right Kidney: 11.2 x 5.1 x 4.4 cm SOFTWARE QUALITY TEST ENGINEER NOTES: Suboptimal exam due to patient body habitus, overlying bowel gas, and patient unable to tolerate pr obe pressure near the epigastric/RUQ region. Pancreas: Obscured by bowel gas Liver: Upper limits of normal in size. Mildly echogenic. Gallbladder: No stones seen as best visualized. Wall WNL. Evidence for sonographic Cao's sign: Yes CBD: wnl Right Kidney: No hydronephrosis or masses seen as best visualized. IMPRESSION: 1. Limited study. 2. No clear evidence of gallbladder wall thickening, pericholecystic fluid, or shadowing gallstones. However the sonographic Cao's sign was reportedly positive, which can be seen in the setting of c holecystitis. Please correlate and follow-up clinically. 3. Mildly prominent, mildly echogenic liver, could be related to hepatic steatosis. 4. Pancreas obscured by bowel gas.
--- NOTE | 2023-05-13 12:43 | CT ---
EXAMINATION TYPE: CT abdomen pelvis w con DATE OF EXAM: 05/13/2023 COMPARISON: None HISTORY: abdominal pain CT DLP: 1357.3 mGycm Automated exposure control for dose reduction was used. TECHNIQUE: Helical acquisition of images was performed from the lung bases through the pelvis. CONTRAST: Performed without Oral Contrast and with IV Contrast, patient injected with 100 ml mL of Isovue 300. FINDINGS: The lung bases are clear. There is a small to moderate hiatal hernia. The gallbladder is normal without distention, wall thickening, pericholecystic fluid or gallstones. T here is a tiny amount of sludge in the dependent portion of the gallbladder. There is no biliary duct al dilatation. There is no focal mass or organomegaly involving the liver, pancreas, spleen or adrenal glands. There is no solid renal mass or hydronephrosis and there is homogeneous contrast enhancement of the r enal parenchyma. The caliber the abdominal aorta is normal is no retroperitoneal adenopathy or hemorr henrietta. The bowel loops are normal in caliber and there is no evidence of dilatation or obstruction. No infla mmatory changes are identified in the bowel wall or mesentery. There is no free intraperitoneal air or fluid. No pelvic mass, free fluid, abscess or adenopathy. The osseous structures and soft tissues are intact. IMPRESSION: 1. Small to moderate hiatal hernia. 2. Tiny sludge in the dependent portion of the gallbladder. 3. No other significant abnormality seen
[2023-05-13 14:18] VITALS: BP 161/92; PULSE 77
== END 2023-05-13 13:45 | disposition home or self-care (01) ==
LOC: EC 09:31
DX: K80.50 Calculus of bile duct without cholangitis or cholecystitis without obstruction (principal); K44.9 Diaphragmatic hernia without obstruction or gangrene; Z88.8 Allergy status to other drugs, medicaments and biological substances
CPT/HCPCS: 36415; 80053; 82150; 83605; 83690; 85025; 81003; 76705; 74177; 99284; 96374; 96375; 96361; J3490; J1885; Q9967

== ENCOUNTER 2023-05-14 10:43 | Inpatient (IN) | payer MEDICARE, OTHER ==
[2023-05-14] MEDS: PANTOPRAZOLE 40 MG/10 ML VIAL IVP STA (11:51)
[2023-05-14] MEDS: MAG HYDROX/AL HYDROX/SIMETH 30 ML, HYOSCYAMINE ELIXIR 10 ML, LIDOCAINE VISCOUS 2% 10 ML PO STA (11:51)
[2023-05-14 11:54] LABS: Basophils % (A) 0 %; Eosinophils # (A) 0.3 k/uL (0-0.7); Eosinophils % (A) 3 %; HCT 43.5 % (39.0-53.0); HGB 14.4 gm/dL (13.0-17.5); Lymphocytes # (A) 1.3 k/uL (1.0-4.8); Lymphocytes % (A) 12 %; MCH 27.7 pg (25.0-35.0); MCHC 33.1 g/dL (31.0-37.0); MCV 83.8 fL (80.0-100.0); Mean Platelet Volume 7.4; Monocytes # (A) 0.7 k/uL (0-1.0); Monocytes % (A) 6 %; Neutrophils # (A) 8.5 k/uL (1.3-7.7); Neutrophils % (A) 78 %; Platelet Count 218 k/uL (150-450); RBC 5.19 m/uL (4.30-5.90); RDW 13.1 % (11.5-15.5); WBC 10.9 k/uL (3.8-10.6)
[2023-05-14] MEDS: HYDROmorphone 0.5 MG/0.5 ML SYRINGE IVP STA (12:00)
[2023-05-14 12:02] LABS: Partial Thromboplastin Time 24.5 sec (22.0-30.0)
[2023-05-14] MEDS: SODIUM CHLORIDE 0.9% 1,000 ML IV SCH (12:02)
[2023-05-14 12:08] LABS: ALT 51 U/L (4-49); African American GFR (CKD) >90 (>60 ml/min/1.73 sqM); Albumin 4.5 g/dL (3.5-5.0); Anion Gap 10 mmol/L; Blood Urea Nitrogen 11 mg/dL (9-20); Calcium 8.9 mg/dL (8.4-10.2); Carbon Dioxide 23 mmol/L (22-30); Chloride 107 mmol/L (98-107); Glucose 95 mg/dL (74-99); Lipase 37 U/L (23-300); Non-African American GFR(CKD) >90 (>60 ml/min/1.73 sqM); Sodium 140 mmol/L (137-145); Total Bilirubin 2.3 mg/dL (0.2-1.3); Total Protein 7.3 g/dL (6.3-8.2)
[2023-05-14 12:09] LABS: AST 45 U/L (17-59); Alkaline Phosphatase 56 U/L (38-126); Magnesium 1.9 mg/dL (1.6-2.3); Potassium 4.7 mmol/L (3.5-5.1)
--- NOTE | 2023-05-14 12:11 | ED ---
General Adult HPI - General Chief complaint: Chest Pain Stated complaint: CHEST PAIN Time Seen by Provider: 05/14/23 11:32 Source: patient, RN notes reviewed, old records reviewed Mode of arrival: ambulatory Limitations: no limitations - History of Present Illness Initial comments: 37-year-old male presents for reevaluation of epigastric and right upper quadrant pain. Patient was seen in the emergency department yesterday diagnosed with biliary colic and gallbladder sludge. He states that his symptoms have worsened including pain and nausea. No fever. - Related Data Home Medications Medication Instructions Recorded Confirmed Pantoprazole [Protonix] 40 mg PO DAILY 05/13/23 05/13/23 busPIRone HCL [Buspar] 30 mg PO BID 05/13/23 05/13/23 lisinopriL [Zestril] 5 mg PO DAILY 05/13/23 05/13/23 Previous Rx's Medication Instructions Recorded Ibuprofen 600 mg PO Q8H PRN #20 tab 05/13/23 Allergies Allergy/AdvReac Type Severity Reaction Status Date / Time amphetamine aspartate Allergy Unknown Verified 05/14/23 10:59 [From Adderall] Childhood amphetamine sulfate Allergy Unknown Verified 05/14/23 10:59 [From Adderall] Childhood dextroamphetamine saccharate Allergy Unknown Verified 05/14/23 10:59 [From Adderall] Childhood dextroamphetamine sulfate Allergy Unknown Verified 05/14/23 10:59 [From Adderall] Childhood methylphenidate HCl Allergy Unknown Verified 05/14/23 10:59 [From Ritalin] Childhood Review of Systems ROS Statement: Those systems with pertinent positive or pertinent negative responses have been documented in the HPI. ROS Other: All systems not noted in ROS Statement are negative. Past Medical History Past Medical History: No Reported History Additional Past Medical History / Comment(s): OBSESSIVE COMPULSIVE DISORDER. History of Any Multi-Drug Resistant Organisms: None Reported Past Surgical History: No Surgical Hx Reported Past Psychological History: Anxiety Smoking Status: Never smoker Past Alcohol Use History: None Reported Past Drug Use History: None Reported General Exam Limitations: no limitations General appearance: alert, in no apparent distress Head exam: Present: atraumatic, normocephalic Eye exam: Present: normal appearance, PERRL ENT exam: Present: normal exam Neck exam: Present: normal inspection. Absent: tenderness, meningismus Respiratory exam: Present: normal lung sounds bilaterally. Absent: respiratory distress, wheezes Cardiovascular Exam: Present: regular rate, normal rhythm GI/Abdominal exam: Present: soft, tenderness (Epigastric and significant right upper quadrant tenderness to palpation). Absent: distended Extremities exam: Present: normal inspection Neurological exam: Present: alert, oriented X3 Psychiatric exam: Present: normal affect, normal mood Skin exam: Present: warm, dry, intact Course Vital Signs 05/14/23 10:54 Temperature 97.8 F Pulse Rate 65 Respiratory 18 Rate Blood Pressure 133/83 O2 Sat by Pulse 97 Oximetry Medical Decision Making - Medical Decision Making Was pt. sent in by a medical professional or institution (, PA, SURGICAL ELASTIC KNITTER, urgent care, hospital, or fci...) When possible be specific @ -No Did you speak to anyone other than the patient for history (EMS, parent, family, police, friend...)? What history was obtained from this source @ -No Did you review nursing and triage notes (agree or disagree)? Why? @ -I reviewed and agree with nursing and triage notes Were old charts reviewed (outside hosp., previous admission, EMS record, old EKG, old radiological studies, urgent care reports/EKG's, fci records)? Report findings @ -No old charts were reviewed Differential Diagnosis (chest pain, altered mental status, abdominal pain women, abdominal pain men, vaginal bleeding, weakness, fever, dyspnea, syncope, headache, dizziness, GI bleed, back pain, seizure, CVA, palpatations, mental health, musculoskeletal)? @ -Differential Chest Pain: Stable Angina, Unstable Angina, STEMI, NSTEMI Aortic Dissection, Pneumothorax, Musculoskeletal, Esophageal Spasm GERD, Cholecystitis, Pancreatitis, Zoster, this is not meant to be an all-inclusive list. EKG interpreted by me (3pts min.). @ -Sinus bradycardia rate of 52 FL interval 152, QRS duration 108, QTc 367 Q wave and T wave inversion in lead III. No ST segment elevation. X-rays interpreted by me (1pt min.). @ -Chest x-ray negative for acute cardiopulmonary findings. CT interpreted by me (1pt min.). @ -CT performed yesterday shows gallbladder sludge U/S interpreted by me (1pt. min.). @ -[Ultrasound of the gallbladder yesterday shows normal common bile duct at 0.4 cm with positive Cao sign. What testing was considered but not performed or refused? (CT, X-rays, U/S, labs)? Why? @ -None What meds were considered but not given or refused? Why? @ -None Did you discuss the management of the patient with other professionals (professionals i.e. , PA, SURGICAL ELASTIC KNITTER, lab, RT, psych nurse, director of social media marketing, software analyst, teacher, earth science technical officer, behavioral health case manager)? Give summary @ -No Was smoking cessation discussed for >3mins.? @ -No Was critical care preformed (if so, how long)? @ -No Were there social determinants of health that impacted care today? How? (Homelessness, low income, unemployed, alcoholism, drug addiction, transportation, low edu. Level, literacy, decrease access to med. care, alf, rehab)? @ -No Was there de-escalation of care discussed even if they declined (Discuss DNR or withdrawal of care, Hospice)? DNR status @ -No What co-morbidities impacted this encounter? (DM, HTN, Smoking, COPD, CAD, Cancer, CVA, ARF, Chemo, Hep., AIDS, mental health diagnosis, sleep apnea, morbid obesity)? @ -None Was patient admitted / discharged? Hospital course, mention meds given and route, prescriptions, significant lab abnormalities, going to OR and other pertinent info. @ -37-year-old male with repeat visit for right upper quadrant, epigastric pain. Patient is quite tender in the right upper quadrant. There is concern for acute cholecystitis. He has a left shift with minimal elevated white blood cell count. Stable hemoglobin. He has normal AST ALT with a total bilirubin of 2.3. I did discuss case with general surgery Dr. Gambino, covering for general surgery who will evaluate this patient in consultation, request admission to internal medicine. Undiagnosed new problem with uncertain prognosis? @ -No Drug Therapy requiring intensive monitoring for toxicity (Heparin, Nitro, Insulin, Cardizem)? @ -No Were any procedures done? @ -No Diagnosis/symptom? @ -Right upper quadrant pain, suspect acute cholecystitis Acute, or Chronic, or Acute on Chronic? @ -Acute Uncomplicated (without systemic symptoms) or Complicated (systemic symptoms)? @ -Default Side effects of treatment? @ -No Exacerbation, Progression, or Severe Exacerbation? @ -No Poses a threat to life or bodily function? How? (Chest pain, [place], [place], pneumonia, PE, COPD, DKA, ARF, appy, cholecystitis, CVA, Diverticulitis, Homicidal, Suicidal, threat to staff... and all critical care pts) @ -[Yes, sepsis - Lab Data Result diagrams: 05/14/23 11:41 05/14/23 11:41 Lab Results 05/14/23 05/14/23 05/14/23 Range/Units 11:41 11:41 11:41 WBC 10.9 H (3.8-10.6) k/uL RBC 5.19 (4.30-5.90) m/uL Hgb 14.4 (13.0-17.5) gm/dL Hct 43.5 (39.0-53.0) % MCV 83.8 (80.0-100.0) fL MCH 27.7 (25.0-35.0) pg MCHC 33.1 (31.0-37.0) g/dL RDW 13.1 (11.5-15.5) % Plt Count 218 (150-450) k/uL MPV 7.4 Neutrophils % 78 % Lymphocytes % 12 % Monocytes % 6 % Eosinophils % 3 % Basophils % 0 % Neutrophils # 8.5 H (1.3-7.7) k/uL Lymphocytes # 1.3 (1.0-4.8) k/uL Monocytes # 0.7 (0-1.0) k/uL Eosinophils # 0.3 (0-0.7) k/uL Basophils # 0.0 (0-0.2) k/uL PT 11.0 (10.0-12.5) sec INR 1.0 (<1.2) APTT 24.5 (22.0-30.0) sec Sodium 140 (137-145) mmol/L Potassium 4.7 (3.5-5.1) mmol/L Chloride 107 (98-107) mmol/L Carbon Dioxide 23 (22-30) mmol/L Anion Gap 10 mmol/L BUN 11 (9-20) mg/dL Creatinine 0.79 (0.66-1.25) mg/dL Est GFR (CKD-EPI)AfAm >90 (>60 ml/min/1.73 sqM) Est GFR (CKD-EPI)NonAf >90 (>60 ml/min/1.73 sqM) Glucose 95 (74-99) mg/dL Calcium 8.9 (8.4-10.2) mg/dL Magnesium 1.9 (1.6-2.3) mg/dL Total Bilirubin 2.3 H (0.2-1.3) mg/dL AST 45 (17-59) U/L ALT 51 H (4-49) U/L Alkaline Phosphatase 56 (38-126) U/L Troponin I (0.000-0.034) ng/mL Total Protein 7.3 (6.3-8.2) g/dL Albumin 4.5 (3.5-5.0) g/dL Lipase 37 (23-300) U/L 05/14/23 Range/Units 11:41 WBC (3.8-10.6) k/uL RBC (4.30-5.90) m/uL Hgb (13.0-17.5) gm/dL Hct (39.0-53.0) % MCV (80.0-100.0) fL MCH (25.0-35.0) pg MCHC (31.0-37.0) g/dL RDW (11.5-15.5) % Plt Count (150-450) k/uL MPV Neutrophils % % Lymphocytes % % Monocytes % % Eosinophils % % Basophils % % Neutrophils # (1.3-7.7) k/uL Lymphocytes # (1.0-4.8) k/uL Monocytes # (0-1.0) k/uL Eosinophils # (0-0.7) k/uL Basophils # (0-0.2) k/uL PT (10.0-12.5) sec INR (<1.2) APTT (22.0-30.0) sec Sodium (137-145) mmol/L Potassium (3.5-5.1) mmol/L Chloride (98-107) mmol/L Carbon Dioxide (22-30) mmol/L Anion Gap mmol/L BUN (9-20) mg/dL Creatinine (0.66-1.25) mg/dL Est GFR (CKD-EPI)AfAm (>60 ml/min/1.73 sqM) Est GFR (CKD-EPI)NonAf (>60 ml/min/1.73 sqM) Glucose (74-99) mg/dL Calcium (8.4-10.2) mg/dL Magnesium (1.6-2.3) mg/dL Total Bilirubin (0.2-1.3) mg/dL AST (17-59) U/L ALT (4-49) U/L Alkaline Phosphatase (38-126) U/L Troponin I <0.012 (0.000-0.034) ng/mL Total Protein (6.3-8.2) g/dL Albumin (3.5-5.0) g/dL Lipase (23-300) U/L Disposition Clinical Impression: Acute cholecystitis, Biliary sludge Disposition: ADMITTED IP TO THIS HOSP Condition: Stable Is patient prescribed a controlled substance at d/c from ED?: No Referrals: [facility] [Primary Care Provider] - 1-2 days Time of Disposition: 13:14
--- NOTE | 2023-05-14 12:18 | XR ---
EXAMINATION TYPE: XR chest 2V DATE OF EXAM: 05/14/2023 COMPARISON: 05/02/2020 HISTORY: Chest pain TECHNIQUE: Frontal and lateral views of the chest are obtained. FINDINGS: There is no focal air space opacity, pleural effusion, or pneumothorax seen. The cardiac silhouette size is within normal limits. The osseous structures are intact. IMPRESSION: No acute cardiopulmonary process.
[2023-05-14] MEDS ORDERED: ONDANSETRON 4 MG/2 ML VIAL IVP PRN (13:11)
[2023-05-14] MEDS ORDERED: NALOXONE 0.4 MG/ML 1 ML VIAL IV PRN (13:11)
[2023-05-14] MEDS ORDERED: HYDROmorphone 0.5 MG/0.5 ML SYRINGE IVP PRN (13:11)
--- NOTE | 2023-05-14 14:38 | P.HPIM ---
History of Present Illness H&P Date: 05/14/23 History of Presenting Illness: Patient is a very pleasant 37-year-old male with cognitive impairment, hypertension, OCD with anxiety, and GERD. He presented to the emergency department with reports of intractable right upper quadrant pain. Patient was seen yesterday in the emergency department for same complaints and underwent full evaluation resulting in diagnosis of biliary colic and gallbladder sludge and discharged home. Patient returned to the emergency department today secondary to worsening intractable right upper quadrant pain and nausea. He denies any fevers, chills, diaphoresis, episodes of vomiting, or experiencing any difficulties with or changes in his urinary function. Vital signs upon arrival show blood pressure 133/83, heart rate 65, respiratory rate 18, temp 97.8 F, and SpO2 of 97% on room air. Labs completed and reviewed. CBC showing leukocytosis with WBC count of 10.9. Coagulation profile normal findings. BMP unremarkable. Lactic acid 1.2. Magnesium 1.9. Liver profile showing elevated total bili of 2.3 and ALT of 51. Bilirubin has increased when compared to labs completed yesterday in the emergency department with total bili of 1.7. General surgery was contacted and recommending holding off on further imaging at this time. He evaluated patient at bedside stating patient to be admitted to hospitalist group for acute cholecystitis with tentative plans for laparoscopic cholecystectomy within the next 24-48 hours. Patient started on gentle IV fluid hydration and IV antibiotics with Rocephin 2 g every 24 hours. Review of systems: Pertinent positives and negatives as discussed in HPI, a complete review of systems was performed and all other systems are negative. Physical exam: Vital signs reviewed and stable. General: Nontoxic, no distress and appears stated age. Derm: Skin warm and dry, normal coloration for ethnicity. Head: Atraumatic, normocephalic and symmetric. Eyes: EOMs intact, no lid lag, and anicteric sclera Mouth: no lip lesions, mucus membranes moist Cardiovascular: regular rate and rhythm with normal S1S2, no murmur, positive posterior tibial pulses bilaterally, and cap refill < 2 seconds. Lungs: Respirations even, regular, and unlabored on room air. Lungs CTA bilaterally, no rhonchi, no rales, no wheezing, and no accessory muscle usage. Abdominal: soft, positive Cao sign with significant tenderness reported to right upper quadrant and epigastric region. No guarding, no appreciable organomegaly Ext: ROM intact. No gross muscle atrophy, no edema, no contractures Neuro: Speech clear, face symmetrical and CN II-XII grossly intact with no noted focal neuro deficits Psych: Alert and oriented to person, place, time, and situation. Appropriate and pleasant affect. Assessment and Plan of Care: Acute cholecystitis Elevated liver enzymes with Hyperbilirubinemia Intractable abdominal pain, secondary to above -General surgery consulted and discussed plan of care with general surgeon darshan ting patient with acute cholecystitis and recommending clear liquid diet and n.p.o. at midnight with tentative plans for laparoscopic cholecystectomy within the next 24-48 hours. -Gentle IV fluid hydration with 0.9% normal saline at 75 cc/h. -GI prophylaxis with Protonix 40 mg daily. -Symptomatic care and pain management. Zofran 4 mg IVP every 8 hours as needed for nausea and/or vomiting. Morphine 4 mg IVP every 4 hours as needed for pain. -IV antibiotics with Rocephin 2 g every 24 hours. Hypertension Continue daily medication regimen with lisinopril 5 mg daily. OCD with anxiety Continue daily medication regimen with BuSpar 30 mg twice daily. Data and imaging reviewed: Reviewed previous visit imaging from 05/13/2023 including gallbladder ultrasound showing positive Cao's sign and mildly prominent equal genic liver, CT abdomen and pelvis showing small to moderate hiatal hernia and sludge in the dependent portion of the gallbladder, and comparison of labs showing increase of total bili from 1.7-2.3 today. -As stated above in HPI. CODE STATUS: Full code DVT prophylaxis: Lovenox Discussed with: ED physician, general surgeon, RN, and patient's mother-Arlin. Anticipated discharge date: Clinical course to determine Anticipated discharge place: Home Patient was seen independently by Nurse Practitioner. This document was prepared using [employer] dictation software. Please allow for errors in share dairy farmer while rare they do occur. I reviewed the documentation as provided by the MARIAMA above, who is the original author of this note. I agree with the documented assessment and plan, with the following changes: none Past Medical History Past Medical History: No Reported History Additional Past Medical History / Comment(s): OBSESSIVE COMPULSIVE DISORDER. History of Any Multi-Drug Resistant Organisms: None Reported Past Surgical History: No Surgical Hx Reported Past Psychological History: Anxiety Smoking Status: Never smoker Past Alcohol Use History: None Reported Past Drug Use History: None Reported Medications and Allergies Home Medications Medication Instructions Recorded Confirmed Type Ibuprofen 600 mg PO Q8H PRN #20 tab 05/13/23 05/14/23 Rx Pantoprazole [Protonix] 40 mg PO DAILY 05/13/23 05/14/23 History busPIRone HCL [Buspar] 30 mg PO BID 05/13/23 05/14/23 History lisinopriL [Zestril] 5 mg PO DAILY 05/13/23 05/14/23 History Allergies Allergy/AdvReac Type Severity Reaction Status Date / Time amphetamine aspartate Allergy Unknown Verified 05/14/23 14:44 [From Adderall] Childhood amphetamine sulfate Allergy Unknown Verified 05/14/23 14:44 [From Adderall] Childhood dextroamphetamine saccharate Allergy Unknown Verified 05/14/23 14:44 [From Adderall] Childhood dextroamphetamine sulfate Allergy Unknown Verified 05/14/23 14:44 [From Adderall] Childhood methylphenidate HCl Allergy Unknown Verified 05/14/23 14:44 [From Ritalin] Childhood Physical Exam Osteopathic Statement: *. No significant issues noted on an osteopathic struct ural exam other than those noted in the History and Physical/Consult. Vitals: Vital Signs Temp Pulse Resp BP Pulse Ox 05/14/23 10:54 97.8 F 65 18 133/83 97 Intake and Output 05/13/23 05/14/23 05/14/23 22:59 06:59 14:59 Other: Weight 97.069 kg Results CBC & Chem 7: 05/14/23 11:41 05/14/23 11:41 Labs: Abnormal Lab Results - Last 24 Hours (Table) 05/14/23 05/14/23 Range/Units 11:41 11:41 WBC 10.9 H (3.8-10.6) k/uL Neutrophils # 8.5 H (1.3-7.7) k/uL Total Bilirubin 2.3 H (0.2-1.3) mg/dL ALT 51 H (4-49) U/L
[2023-05-14] MEDS: busPIRone HCl 10 MG TAB PO SCH (16:52)
[2023-05-14] MEDS: lisinopriL 5 MG TAB PO SCH (17:28)
[2023-05-14] MEDS: PANTOPRAZOLE 40 MG TABLET PO SCH (17:28)
[2023-05-14] MEDS: ACETAMINOPHEN TAB 325 MG TAB PO PRN (17:30)
--- NOTE | 2023-05-14 20:07 | P.GSCN ---
History of Present Illness Consult date: 05/14/23 Reason for Consult: RUQ Pain History of present illness: Patient is a 37 year old male who presents with recurrent RUQ pain. Patient was previously seen in [facility] ED on 05/13/23 where RUQ US obtained showed evidence of gallbaldder sludge without wall thickening or pericholecystic fluid to indicate acute cholecystitis. Patient was subsequently discharged home only to represent on 05/14/23 with persistent symptoms. He endorses N/V and RUQ pain. He states pain is worse with PO intake. Similar episodes in the past but not as severe has his current presentation. No F/C. NO SOB or CP. NO headache or blurry vision. Admits to flatus and BM day prior to evaluation. No melena or hematochezia. No pruririts. Review of Systems Negative except for as stated above. Past Medical History Past Medical History: No Reported History Additional Past Medical History / Comment(s): OBSESSIVE COMPULSIVE DISORDER. History of Any Multi-Drug Resistant Organisms: None Reported Past Surgical History: No Surgical Hx Reported Past Psychological History: Anxiety Smoking Status: Never smoker Past Alcohol Use History: None Reported Past Drug Use History: None Reported Medications and Allergies Home Medications Medication Instructions Recorded Confirmed Type Ibuprofen 600 mg PO Q8H PRN #20 tab 05/13/23 05/14/23 Rx Pantoprazole [Protonix] 40 mg PO DAILY 05/13/23 05/14/23 History busPIRone HCL [Buspar] 30 mg PO BID 05/13/23 05/14/23 History lisinopriL [Zestril] 5 mg PO DAILY 05/13/23 05/14/23 History Allergies Allergy/AdvReac Type Severity Reaction Status Date / Time amphetamine aspartate Allergy Unknown Verified 05/14/23 14:44 [From Adderall] Childhood amphetamine sulfate Allergy Unknown Verified 05/14/23 14:44 [From Adderall] Childhood dextroamphetamine saccharate Allergy Unknown Verified 05/14/23 14:44 [From Adderall] Childhood dextroamphetamine sulfate Allergy Unknown Verified 05/14/23 14:44 [From Adderall] Childhood methylphenidate HCl Allergy Unknown Verified 05/14/23 14:44 [From Ritalin] Childhood Surgical - Exam Vital Signs Temp Pulse Resp BP Pulse Ox 97.8 F 65 18 133/83 97 05/14/23 10:54 05/14/23 10:54 05/14/23 10:54 05/14/23 10:54 05/14/23 10:54 Gen: AxO, NAD Pulm: non-labored respirations Abd: soft, tender in RUQ, ferraro's sign positive. mildly distended. No guarding/rebound/rigidity Extrem: no edema seen Results - Labs 05/14/23 11:41 05/14/23 11:41 Abnormal Lab Results - Last 24 Hours (Table) 05/14/23 05/14/23 Range/Units 11:41 11:41 WBC 10.9 H (3.8-10.6) k/uL Neutrophils # 8.5 H (1.3-7.7) k/uL Total Bilirubin 2.3 H (0.2-1.3) mg/dL ALT 51 H (4-49) U/L Diabetes panel 05/14/23 Range/Units 11:41 Sodium 140 (137-145) mmol/L Potassium 4.7 (3.5-5.1) mmol/L Chloride 107 (98-107) mmol/L Carbon Dioxide 23 (22-30) mmol/L BUN 11 (9-20) mg/dL Creatinine 0.79 (0.66-1.25) mg/dL Glucose 95 (74-99) mg/dL Calcium 8.9 (8.4-10.2) mg/dL AST 45 (17-59) U/L ALT 51 H (4-49) U/L Alkaline Phosphatase 56 (38-126) U/L Total Protein 7.3 (6.3-8.2) g/dL Albumin 4.5 (3.5-5.0) g/dL Calcium panel 05/14/23 Range/Units 11:41 Calcium 8.9 (8.4-10.2) mg/dL Albumin 4.5 (3.5-5.0) g/dL Pituitary panel 05/14/23 Range/Units 11:41 Sodium 140 (137-145) mmol/L Potassium 4.7 (3.5-5.1) mmol/L Chloride 107 (98-107) mmol/L Carbon Dioxide 23 (22-30) mmol/L BUN 11 (9-20) mg/dL Creatinine 0.79 (0.66-1.25) mg/dL Glucose 95 (74-99) mg/dL Calcium 8.9 (8.4-10.2) mg/dL Adrenal panel 05/14/23 Range/Units 11:41 Sodium 140 (137-145) mmol/L Potassium 4.7 (3.5-5.1) mmol/L Chloride 107 (98-107) mmol/L Carbon Dioxide 23 (22-30) mmol/L BUN 11 (9-20) mg/dL Creatinine 0.79 (0.66-1.25) mg/dL Glucose 95 (74-99) mg/dL Calcium 8.9 (8.4-10.2) mg/dL Total Bilirubin 2.3 H (0.2-1.3) mg/dL AST 45 (17-59) U/L ALT 51 H (4-49) U/L Alkaline Phosphatase 56 (38-126) U/L Total Protein 7.3 (6.3-8.2) g/dL Albumin 4.5 (3.5-5.0) g/dL Assessment and Plan Assessment: Patient is a 37 year old male with RUQ pain and US evidence of gallbladder sludge concerning for acute cholecystitis versus symptomatic cholelithiasis. Plan: -CLD NPO at MO -IV abx -IVF hydration -PRN pain and nausea control -Trend LFT; Tbili 2.3; if uptrending recommend MRCP for evaluation of choledocholithiasis -DVT/GI PPx -No acute surgical intervention; will likely need laparoscopic cholecystectomy this admission Georges Gambino MD General Surgery
[2023-05-14 21:15] LABS: ALT 42 U/L (4-49); AST 27 U/L (17-59); African American GFR (CKD) >90 (>60 ml/min/1.73 sqM); Albumin/Globulin Ratio 1.5; Alkaline Phosphatase 64 U/L (38-126); Anion Gap 10 mmol/L; Blood Urea Nitrogen 9 mg/dL (9-20); Calcium 8.5 mg/dL (8.4-10.2); Carbon Dioxide 24 mmol/L (22-30); Chloride 105 mmol/L (98-107); Globulin 2.6 g/dL; Glucose 92 mg/dL (74-99); Non-African American GFR(CKD) >90 (>60 ml/min/1.73 sqM); Potassium 3.7 mmol/L (3.5-5.1); Sodium 139 mmol/L (137-145); Total Bilirubin 1.5 mg/dL (0.2-1.3); Total Protein 6.6 g/dL (6.3-8.2)
[2023-05-15 08:08] LABS: HCT 39.5 % (39.0-53.0); HGB 13.7 gm/dL (13.0-17.5); MCHC 34.7 g/dL (31.0-37.0); MCV 83.5 fL (80.0-100.0); Mean Platelet Volume 7.8; Platelet Count 199 k/uL (150-450); RBC 4.73 m/uL (4.30-5.90); RDW 13.4 % (11.5-15.5); WBC 9.4 k/uL (3.8-10.6)
[2023-05-15 08:10] LABS: ALT 40 U/L (4-49); AST 27 U/L (17-59); African American GFR (CKD) >90 (>60 ml/min/1.73 sqM); Albumin/Globulin Ratio 1.6; Alkaline Phosphatase 68 U/L (38-126); Anion Gap 10 mmol/L; Blood Urea Nitrogen 8 mg/dL (9-20); Calcium 8.7 mg/dL (8.4-10.2); Carbon Dioxide 23 mmol/L (22-30); Chloride 106 mmol/L (98-107); Globulin 2.5 g/dL; Glucose 97 mg/dL (74-99); Magnesium 1.9 mg/dL (1.6-2.3); Non-African American GFR(CKD) >90 (>60 ml/min/1.73 sqM); Potassium 3.7 mmol/L (3.5-5.1); Sodium 139 mmol/L (137-145); Total Bilirubin 1.8 mg/dL (0.2-1.3); Total Protein 6.5 g/dL (6.3-8.2)
[2023-05-15] MEDS: ENOXAPARIN 40 MG/0.4 ML SYRINGE SQ SCH (10:10)
--- NOTE | 2023-05-15 13:43 | P.PN ---
Subjective Progress Note Date: 05/15/23 Hospital course: Patient is a very pleasant 37-year-old male with cognitive impairment, hypertension, OCD with anxiety, and GERD. He presented to the emergency de partment with reports of intractable right upper quadrant pain. Patient was seen yesterday in the emergency department for same complaints and underwent full evaluation resulting in diagnosis of biliary colic and gallbladder sludge and discharged home. Patient returned to the emergency department today secondary to worsening intractable right upper quadrant pain and nausea. He denies any fevers, chills, diaphoresis, episodes of vomiting, or experiencing any difficulties with or changes in his urinary function. Vital signs upon arrival show blood pressure 133/83, heart rate 65, respiratory rate 18, temp 97.8 F, and SpO2 of 97% on room air. Labs completed and reviewed. CBC showing leukocytosis with WBC count of 10.9. Coagulation profile normal findings. BMP unremarkable. Lactic acid 1.2. Magnesium 1.9. Liver profile showing elevated total bili of 2.3 and ALT of 51. Bilirubin has increased when compared to labs completed yesterday in the emergency department with total bili of 1.7. General surgery was contacted and recommending holding off on further imaging at this time. He evaluated patient at bedside stating patient to be admitted to hospitalist group for acute cholecystitis with tentative plans for laparoscopic cholecystectomy within the next 24-48 hours. Patient started on gentle IV fluid hydration and IV antibiotics with Rocephin 2 g every 24 hours. Physical exam: Patient continues to have significant tenderness to right upper quadrant upon palpation but he reports full resolution of the epigastric pain he was previously experiencing along with it. He is awaiting evaluation by general surgeon this morning, denies having any nausea or vomiting and denies any other complaints at this time. Vital signs reviewed and stable. General: Nontoxic, no distress and appears stated age. Derm: Skin warm and dry, normal coloration for ethnicity. Head: Atraumatic, normocephalic and symmetric. Eyes: EOMs intact, no lid lag, and anicteric sclera Mouth: no lip lesions, mucus membranes moist Cardiovascular: regular rate and rhythm with normal S1S2, no murmur, positive posterior tibial pulses bilaterally, and cap refill < 2 seconds. Lungs: Respirations even, regular, and unlabored on room air. Lungs CTA samina aterally, no rhonchi, no rales, no wheezing, and no accessory muscle usage. Abdominal: soft, positive Cao sign with significant tenderness reported to right upper quadrant and epigastric region. No guarding, no appreciable organomegaly Ext: ROM intact. No gross muscle atrophy, no edema, no contractures Neuro: Speech clear, face symmetrical and CN II-XII grossly intact with no noted focal neuro deficits Psych: Alert and oriented to person, place, time, and situation. Appropriate and pleasant affect. Assessment and Plan of Care: Acute cholecystitis Elevated liver enzymes with Hyperbilirubinemia Intractable abdominal pain, secondary to above -General surgery consulted and discussed plan of care with general surgeon stating patient with acute cholecystitis and recommending clear liquid diet and n.p.o. at midnight with tentative plans for laparoscopic cholecystectomy within the next 24-48 hours. -Gentle IV fluid hydration with 0.9% normal saline at 75 cc/h. -GI prophylaxis with Protonix 40 mg daily. -Symptomatic care and pain management. Zofran 4 mg IVP every 8 hours as needed for nausea and/or vomiting. Morphine 4 mg IVP every 4 hours as needed for pain. -IV antibiotics with Rocephin 2 g every 24 hours. Hypertension Continue daily medication regimen with lisinopril 5 mg daily. OCD with anxiety Continue daily medication regimen with BuSpar 30 mg twice daily. Cognitive impairment Patient high functioning but does have underlying cognitive impairment, patient to be provided with assistance/guidance as needed. Data and imaging reviewed: Vital signs reviewed. Blood pressure 156/89, heart rate 73, respiratory rate 20, temp 97.8 F, and SpO2 of 95% on room air. CBC and BMP were unremarkable. Liver profile showing continued elevation of total bili at 1.8 otherwise normal findings. CODE STATUS: Full code DVT prophylaxis: Lovenox Anticipated discharge date: Clinical course to determine Anticipated discharge place: Home Patient was seen independently by Nurse Practitioner. This document was prepared using [employer] dictation software. Please allow for errors in bed manager while rare they do occur. I reviewed the documentation as provided by the MARIAMA above, who is the original author of this note. I agree with the documented assessment and plan, with the following changes: none Objective - Vital Signs Vital signs: Vital Signs Temp 97.8 F 05/15/23 08:32 Pulse 73 05/15/23 08:32 Resp 20 05/15/23 08:32 BP 156/89 05/15/23 08:32 Pulse Ox 95 05/15/23 08:32 FiO2 21 05/15/23 08:12 Intake & Output 05/14/23 05/15/23 05/15/23 18:59 06:59 18:59 Weight 97.069 kg Other: # Voids 2 - Labs CBC & Chem 7: 05/16/23 10:28 05/16/23 10:28 Labs: Abnormal Lab Results - Last 24 Hours (Table) 05/14/23 05/14/23 05/14/23 Range/Units 11:41 11:41 20:26 WBC 10.9 H (3.8-10.6) k/uL Neutrophils # 8.5 H (1.3-7.7) k/uL BUN (9-20) mg/dL Total Bilirubin 2.3 H 1.5 H (0.2-1.3) mg/dL ALT 51 H (4-49) U/L 05/15/23 Range/Units 07:20 WBC (3.8-10.6) k/uL Neutrophils # (1.3-7.7) k/uL BUN 8 L (9-20) mg/dL Total Bilirubin 1.8 H (0.2-1.3) mg/dL ALT (4-49) U/L
--- NOTE | 2023-05-15 14:45 | P.PN ---
Subjective Progress Note Date: 05/15/23 Family at bedside. Patient reports at least 3 attacks in the past 6 days with epigastric right upper quadrant pain. No prior upper endoscopy. CT scan and ultrasound reviewed. Ultrasound nondiagnostic for gallstones. Total bilirubin elevated. LFTs trending downward. Possible risk of choledocholithiasis and recommend MRCP. Additionally, finding of hiatal hernia on CT scan evident including symptoms consistent reflux. Recommend upper endoscopy for further assessment. Low-fat diet in the interim. WBC resolved. Objective - Vital Signs Vital signs: Vital Signs Temp 98.3 F 05/15/23 13:06 Pulse 72 05/15/23 13:06 Resp 20 05/15/23 13:06 BP 149/78 05/15/23 13:06 Pulse Ox 95 05/15/23 13:06 FiO2 21 05/15/23 08:12 Intake & Output 05/14/23 05/15/23 05/15/23 18:59 06:59 18:59 Weight 97.069 kg Other: # Voids 2 1 - Labs CBC & Chem 7: 05/15/23 07:20 05/15/23 07:20 Labs: Abnormal Lab Results - Last 24 Hours (Table) 05/14/23 05/15/23 Range/Units 20:26 07:20 BUN 8 L (9-20) mg/dL Total Bilirubin 1.5 H 1.8 H (0.2-1.3) mg/dL
[2023-05-16 11:03] LABS: HCT 41.8 % (39.0-53.0); HGB 13.4 gm/dL (13.0-17.5); MCH 27.2 pg (25.0-35.0); MCHC 32.2 g/dL (31.0-37.0); MCV 84.6 fL (80.0-100.0); Mean Platelet Volume 7.6; Platelet Count 195 k/uL (150-450); RBC 4.94 m/uL (4.30-5.90); RDW 13.4 % (11.5-15.5); WBC 8.3 k/uL (3.8-10.6)
[2023-05-16 11:21] LABS: ALT 38 U/L (4-49); AST 27 U/L (17-59); African American GFR (CKD) >90 (>60 ml/min/1.73 sqM); Albumin/Globulin Ratio 1.5; Alkaline Phosphatase 68 U/L (38-126); Anion Gap 9 mmol/L; Blood Urea Nitrogen 8 mg/dL (9-20); Calcium 8.7 mg/dL (8.4-10.2); Carbon Dioxide 24 mmol/L (22-30); Chloride 107 mmol/L (98-107); Globulin 2.6 g/dL; Glucose 95 mg/dL (74-99); Non-African American GFR(CKD) >90 (>60 ml/min/1.73 sqM); Potassium 3.8 mmol/L (3.5-5.1); Sodium 140 mmol/L (137-145); Total Protein 6.6 g/dL (6.3-8.2)
--- NOTE | 2023-05-16 14:00 | P.PN ---
Subjective Progress Note Date: 05/16/23 Hospital course: Patient is a very pleasant 37-year-old male with cognitive impairment, hypertension, OCD with anxiety, and GERD. He presented to the emergency de partment with reports of intractable right upper quadrant pain. Patient was seen yesterday in the emergency department for same complaints and underwent full evaluation resulting in diagnosis of biliary colic and gallbladder sludge and discharged home. Patient returned to the emergency department today secondary to worsening intractable right upper quadrant pain and nausea. He denies any fevers, chills, diaphoresis, episodes of vomiting, or experiencing any difficulties with or changes in his urinary function. Vital signs upon arrival show blood pressure 133/83, heart rate 65, respiratory rate 18, temp 97.8 F, and SpO2 of 97% on room air. Labs completed and reviewed. CBC showing leukocytosis with WBC count of 10.9. Coagulation profile normal findings. BMP unremarkable. Lactic acid 1.2. Magnesium 1.9. Liver profile showing elevated total bili of 2.3 and ALT of 51. Bilirubin has increased when compared to labs completed yesterday in the emergency department with total bili of 1.7. General surgery was contacted and recommending holding off on further imaging at this time. He evaluated patient at bedside stating patient to be admitted to hospitalist group for acute cholecystitis with tentative plans for laparoscopic cholecystectomy within the next 24-48 hours. Patient started on gentle IV fluid hydration and IV antibiotics with Rocephin 2 g every 24 hours. Physical exam: Patient seen and fully evaluated at bedside this morning. He appeared to be doing well. Patient states he is feeling better but upon a physical examination continues to have significant tenderness in right upper quadrant. He denies any nausea or vomiting. He is awaiting to be taken down for EGD and MRCP later today. Vital signs reviewed and stable. General: Nontoxic, no distress and appears stated age. Derm: Skin warm and dry, normal coloration for ethnicity. Head: Atraumatic, normocephalic and symmetric. Eyes: EOMs intact, no lid lag, and anicteric sclera Mouth: no lip lesions, mucus membranes moist Cardiovascular: regular rate and rhythm with normal S1S2, no murmur, positive posterior tibial pulses bilaterally, and cap refill < 2 seconds. Lungs: Respirations even, regular, and unlabored on room air. Lungs CTA bilaterally, no rhonchi, no rales, no wheezing, and no accessory muscle usage. Abdominal: soft, positive Cao sign with significant tenderness reported to right upper quadrant and epigastric region. No guarding, no appreciable organomegaly Ext: ROM intact. No gross muscle atrophy, no edema, no contractures Neuro: Speech clear, face symmetrical and CN II-XII grossly intact with no noted focal neuro deficits Psych: Alert and oriented to person, place, time, and situation. Appropriate and pleasant affect. Assessment and Plan of Care: Acute cholecystitis Elevated liver enzymes with Hyperbilirubinemia Intractable abdominal pain, secondary to above -General surgery following, discussed plan of care with general surgery PA patient to be taken down for EGD and MRCP later today. -Gentle IV fluid hydration with 0.9% normal saline at 75 cc/h while n.p.o., may discontinue once diet is advanced. -GI prophylaxis with Protonix 40 mg daily. -Symptomatic care and pain management. Zofran 4 mg IVP every 8 hours as needed for nausea and/or vomiting. Morphine 4 mg IVP every 4 hours as needed for pain. -IV antibiotics with Rocephin 2 g every 24 hours. Hypertension Continue daily medication regimen with lisinopril 5 mg daily. OCD with anxiety Continue daily medication regimen with BuSpar 30 mg twice daily. Cognitive impairment Patient high functioning but does have underlying cognitive impairment, patient to be provided with assistance/guidance as needed. Data and imaging reviewed: Vital signs reviewed. Blood pressure 142/84, heart rate 66, respiratory rate 18, temp 98.0 F. CBC and BMP were unremarkable. Liver profile showing resolution of hyperbilirubinemia with bilirubin of 1.0 this morning. CODE STATUS: Full code DVT prophylaxis: Lovenox Anticipated discharge date: Clinical course to determine Anticipated discharge place: Home Patient was seen independently by Nurse Practitioner. This document was prepared using [employer] dictation software. Please allow for errors in permit specialist while rare they do occur. I reviewed the documentation as provided by the MARIAMA above, who is the original author of this note. I agree with the documented assessment and plan, with the following changes: none Objective - Vital Signs Vital signs: Vital Signs Temp 98.5 F 05/16/23 07:04 Pulse 81 05/16/23 07:04 Resp 18 05/16/23 07:04 BP 164/93 05/16/23 07:04 Pulse Ox 90 L 05/16/23 07:04 FiO2 21 05/15/23 08:12 Intake & Output 05/15/23 05/16/23 05/16/23 18:59 06:59 18:59 Intake Total 950 222 Balance 950 222 Intake: Intake, IV Titration 950 Amount Sodium Chloride 0.9% 1, 900 000 ml @ 75 mls/hr IV . [id number] [facility] Rx#:[id number] cefTRIAXone 2 gm In 50 Sodium Chloride 0.9% 50 ml @ 100 mls/hr IVPB Q24HR [facility] Rx#:[id number] Oral 222 Other: # Voids 1 2 - Labs CBC & Chem 7: 05/16/23 10:28 05/16/23 10:28 Labs: Abnormal Lab Results - Last 24 Hours (Table) 05/15/23 Range/Units 07:20 BUN 8 L (9-20) mg/dL Total Bilirubin 1.8 H (0.2-1.3) mg/dL Microbiology - Last 24 Hours (Table) 05/14/23 14:30 Blood Culture - Preliminary Blood 05/14/23 14:15 Blood Culture - Preliminary Blood
[2023-05-16] MEDS ORDERED: LIDOCAINE 1% INJ 10MG/ML (20 ML MDV) ONE (14:19)
[2023-05-16] MEDS: IV FLUID CONTINUATION 300 ML IV ONE (14:19)
[2023-05-16] MEDS ORDERED: PROPOFOL 10 MG/ML 20 ML VIAL IV ONE (14:19)
--- NOTE | 2023-05-16 14:39 | MR ---
EXAMINATION TYPE: MR MRCP DATE OF EXAM: 05/16/2023 1:08 PM CLINICAL INDICATION:Male, 37 years old with history of Elevated LFTs, CBD stone assessment, RUQ pain; PHH, Elevated LFT's, RUQ pain COMPARISON: 05/13/2023 TECHNIQUE: Multi planar, T2-weighted imaging with and without fat saturation and chemical shift imag ing was performed of the abdomen. Then, heavily T2 weighted imaging (half-Fourier acquisition single- shot turbo spin-echo) was utilized in order to study the biliary system. Maximum intensity projectio n images were reconstructed from the original data of the biliary tree. 3D images were created on a [place] work station. No Gadolinium given. FINDINGS: Lower Thorax: No evidence for acute process. MRCP: * The intrahepatic ducts have a normal appearance. * The common bile duct at the level of the pancreatic head measures 3 mm in size. * The common hepatic duct measures 6 mm in size. * The pancreatic duct is normal. * The gallbladder appears unremarkable. Abdomen: Liver: Signal dropout on chemical shift of phase imaging of the liver Pancreas: Unremarkable. Spleen: Unremarkable. Adrenal glands: Unremarkable. Kidneys: Unremarkable. Stomach and Bowel: Small hiatal hernia is present. Peritoneum: No evidence of pneumoperitoneum or free fluid. Vasculature: Unremarkable. No aortic aneurysm. Musculoskeletal: The osseous structures appear intact. Lymph Nodes: No gross evidence for lymphadenopathy. Abdominal wall: Unremarkable. IMPRESSION: No evidence to suggest ductal stricture, choledocholithiasis, or biliary ductal dilatation. Hepatic steatosis. Small hiatal hernia.
--- NOTE | 2023-05-16 14:43 | P.PCN ---
Date of Procedure: 05/16/23 Description of Procedure: PREOPERATIVE DIAGNOSIS: Diaphragmatic hiatal hernia Atypical chest pain Gastroesophageal reflux disease Epigastric abdominal pain POSTOPERATIVE DIAGNOSIS: Gastroesophageal reflux disease. Morbid obesity. Gastritis. Diaphragmatic hiatal hernia OPERATION: Esophagogastroduodenoscopy with biopsies along esophagus, antrum and duodenum SURGEON: Val Rey MD ANESTHESIA: MAC. INDICATIONS: The patient is a 37-year-old male who presents with reflux disease. Benefits and risks of the procedure were described. Informed consent was obtained. DESCRIPTION: The patient was brought into the endoscopy suite and laid in the left lateral decubitus position. An Olympus gastroscope was passed along the posterior oropharynx down to the distal esophagus where the squamocolumnar junction was encountered at 34 cm from the incisors. The stomach was entered and no bile reflux was found. Additional findings are listed below. Biopsies with cold forceps were obtained of the antrum. The first through third portion of the duodenum was examined. Retroflexion of the scope confirmed Hill grade 3 lower esophageal valve. The squamocolumnar junction demonstrated LA grade B erosive esophagitis. The stomach was desufflated. The patient tolerated the procedure well. FINDINGS: Squamocolumnar junction 34 cm from the incisors. Diaphragmatic hiatus at 40 cm. Hiatal hernia, 6 cm Hill grade 4 lower esophageal valve. LA grade B erosive esophagitis. Biopsies obtained. Biopsies obtained of the duodenum. Chronic gastritis with biopsies obtained. RECOMMENDATIONS: Upper endoscopy as needed. Omeprazole 40 mg daily advised Recommend diaphragmatic hiatal hernia repair Plan - Discharge Summary Discharge Rx Participant: No New Discharge Prescriptions: No Action Pantoprazole [Protonix] 40 mg PO DAILY lisinopriL [Zestril] 5 mg PO DAILY busPIRone HCL [Buspar] 30 mg PO BID Ibuprofen 600 mg PO Q8H PRN #20 tab PRN Reason: Pain Discharge Medication List Ibuprofen 600 mg PO Q8H PRN #20 tab 05/13/23 [Rx] Pantoprazole [Protonix] 40 mg PO DAILY 05/13/23 [History] busPIRone HCL [Buspar] 30 mg PO BID 05/13/23 [History] lisinopriL [Zestril] 5 mg PO DAILY 05/13/23 [History] Follow up Appointment(s)/Referral(s): [facility] [Primary Care Provider] - 1-2 days
[2023-05-17 01:56] VITALS: RESP 16
[2023-05-17 11:40] LABS: ALT 36 U/L (10-49); AST 21 U/L (14-35); Albumin 4.3 g/dL (3.8-4.9); Albumin/Globulin Ratio 1.87 Ratio (1.60-3.17); Alkaline Phosphatase 73 U/L (41-126); Blood Urea Nitrogen 7.2 mg/dL (9.0-27.0); Calcium 9.3 mg/dL (8.7-10.3); Carbon Dioxide 22.5 mmol/L (21.6-31.8); Chloride 105 mmol/L (96-109); Globulin 2.3 g/dL (1.6-3.3); Glucose 94 mg/dL (70-110); Potassium 4.1 mmol/L (3.5-5.5); Sodium 142 mmol/L (135-145); Total Bilirubin 0.8 mg/dL (0.3-1.2); Total Protein 6.6 g/dL (6.2-8.2)
[2023-05-17 12:19] LABS: HCT 40.2 % (39.6-50.0); HGB 13.6 g/dL (13.0-17.0); MCH 27.4 pg (27.0-32.0); MCHC 33.8 g/dL (32.0-37.0); MCV 80.9 FL (80.0-97.0); Mean Platelet Volume 10.7 FL (9.5-12.2); NRBC Per 100 WBC 0 X 10*3/uL (0.00-0.01); Platelet Count 232 X 10*3/uL (140-440); RBC 4.97 X 10*6/uL (4.40-5.60); RDW 13.4 % (11.5-14.5); WBC 8.63 X 10*3/uL (4.50-10.00)
[2023-05-17 13:05] VITALS: BP 121/76; PULSE 56; TEMP 98.1
--- NOTE | 2023-05-17 15:34 | P.PN ---
Subjective Progress Note Date: 05/17/23 CHIEF COMPLAINT: Abdominal pain HISTORY OF PRESENT ILLNESS: Patient has no complaints of abdominal pain. He is tolerating diet. Afebrile. MRCP completed showing no choledocholithiasis. He is status post EGD which revealed esophagitis, gastritis, hiatal hernia. LFTs normal. WBC 8.63 PHYSICAL EXAM: VITAL SIGNS: Reviewed GENERAL: Well-developed in no acute distress. HEENT: No sclera icterus. Extraocular movements grossly intact. Moist buccal mucosa. Head is atraumatic, normocephalic. Hears conversational speech. No nasal drainage. NECK: Supple without lymphadenopathy. CHEST: Non-labored respirations and equal bilateral excursions. CARDIOVASCULAR: Palpable 2+ radial pulses. ABDOMEN: Soft. Nondistended. Nontender. MUSCULOSKELETAL: No clubbing or cyanosis. NEUROLOGIC: No focal or lateralizing signs. Cranial nerves II through XII grossly intact. PSYCH: Appropriate affect. Alert and oriented to person, place and time. SKIN: Well perfused. Good skin turgor. ASSESSMENT: Gastroesophageal reflux disease. Morbid obesity. Gastritis. Diaphragmatic hiatal hernia Elevated LFTs resolved PLAN: -Patient can be discharged from surgical standpoint -Recommend hiatal hernia repair outpatient Physician Pillowcase Cutter note has been reviewed by physician. Signing provider agrees with the documented findings, assessment, and plan of care. Objective - Vital Signs Vital signs: Vital Signs Temp 98.1 F 05/17/23 12:23 Pulse 56 L 05/17/23 12:23 Resp 16 05/17/23 12:23 BP 121/76 05/17/23 12:23 Pulse Ox 96 05/17/23 12:23 FiO2 21 05/15/23 08:12 Intake & Output 05/16/23 05/17/23 05/17/23 18:59 06:59 18:59 Intake Total 250 Balance 250 Intake: IV 200 Intake, IV Titration 50 Amount cefTRIAXone 2 gm In 50 Sodium Chloride 0.9% 50 ml @ 100 mls/hr IVPB Q24HR [facility] Rx#:[id number] Other: Voiding Method Toilet # Voids 1 - Labs CBC & Chem 7: 05/17/23 06:00 05/17/23 06:00 Labs: Abnormal Lab Results - Last 24 Hours (Table) 05/17/23 Range/Units 06:00 Anion Gap 14.50 H (4.00-12.00) mmol/L BUN 7.2 L (9.0-27.0) mg/dL BUN/Creatinine Ratio 9.00 L (12.00-20.00) Ratio Microbiology - Last 24 Hours (Table) 05/14/23 14:30 Blood Culture - Preliminary Blood 05/14/23 14:15 Blood Culture - Preliminary Blood
--- NOTE | 2023-05-17 18:00 | P.DS ---
Providers Date of admission: 05/14/23 13:11 Expected date of discharge: 05/17/23 Attending physician: Derian Pierre MD Consults: 05/14/23 13:11 Consult Physician Routine Consulting Provider: Val Rey Consult Reason/Comments: Right upper quadrant pain Do you want consulting provider notified?: Already Contacted Primary care physician: [facility] Hospital Course: Discharge Diagnosis: Acute cholecystitis Elevated liver enzymes with Hyperbilirubinemia Intractable abdominal pain, secondary to above Hypertension. Continue daily medication regimen with lisinopril 5 mg daily. OCD with anxiety. Continue daily medication regimen with BuSpar 30 mg twice daily. Cognitive impairment Hospital course: Patient is a very pleasant 37-year-old male with cognitive impairment, hypertension, OCD with anxiety, and GERD. He presented to the emergency department with reports of intractable right upper quadrant pain. Patient was seen yesterday in the emergency department for same complaints and underwent full evaluation resulting in diagnosis of biliary colic and gallbladder sludge and discharged home. Patient returned to the emergency department today secondary to worsening intractable right upper quadrant pain and nausea. He denies any fevers, chills, diaphoresis, episodes of vomiting, or experiencing any difficulties with or changes in his urinary function. Vital signs upon arrival show blood pressure 133/83, heart rate 65, respiratory rate 18, temp 97.8 F, and SpO2 of 97% on room air. Labs completed and reviewed. CBC showing leukocytosis with WBC count of 10.9. Coagulation profile normal findings. BMP unremarkable. Lactic acid 1.2. Magnesium 1.9. Liver profile showing elevated total bili of 2.3 and ALT of 51. Bilirubin has increased when compared to labs completed yesterday in the emergency department with total bili of 1.7. General surgery was contacted and recommending holding off on further imaging at this time. He evaluated patient at bedside stating patient to be admitted to hospitalist group for acute cholecystitis with tentative plans for laparoscopic cholecystectomy within the next 24-48 hours. Patient started on gentle IV fluid hydration and IV antibiotics with Rocephin 2 g every 24 hours. Patient was taken for EGD and MRCP. MRCP reporting gallbladder appears unremarkable and hepatic ducts have a normal appearance showing no evidence to suggest ductal stricture, choledocholithiasis, or biliary ductal dilation. Did reveal a small hiatal hernia. General surgery clearing patient from their perspective stating no further need for antibiotics as cholecystitis ruled out. Patient recommended to follow-up in their office in 3 weeks to further discuss hiatal hernia repair outpatient. Patient is medically stable for discharge at this time. Patient to follow-up outpatient with PCP in 2 to 3 days and with general surgeon in 3 weeks. Physical exam: Vital signs reviewed and stable. General: Nontoxic, no distress and appears stated age. Derm: Skin warm and dry, normal coloration for ethnicity. Head: Atraumatic, normocephalic and symmetric. Eyes: EOMs intact, no lid lag, and anicteric sclera Mouth: no lip lesions, mucus membranes moist Cardiovascular: regular rate and rhythm with normal S1S2, no murmur, positive posterior tibial pulses bilaterally, and cap refill < 2 seconds. Lungs: Respirations even, regular, and unlabored on room air. Lungs CTA bilaterally, no rhonchi, no rales, no wheezing, and no accessory muscle usage. Abdominal: soft, nontender to palpation. No guarding, no appreciable organomegaly Ext: ROM intact. No gross muscle atrophy, no edema, no contractures Neuro: Speech clear, face symmetrical and CN II-XII grossly intact with no noted focal neuro deficits Psych: Alert and oriented to person, place, time, and situation. Appropriate and pleasant affect. A total of 31 minutes of time were spent preparing this complex discharge summary. Pt was discharged on 05/17/2023 at 11:37 AM Patient was seen independently by Nurse Practitioner. This document was prepared using NONO dictation software. Please allow for errors in pelt inspector while rare they do occur. Patient Condition at Discharge: Stable Plan - Discharge Summary Discharge Rx Participant: No New Discharge Prescriptions: Continue Pantoprazole [Protonix] 40 mg PO DAILY lisinopriL [Zestril] 5 mg PO DAILY busPIRone HCL [Buspar] 30 mg PO BID Discontinued Ibuprofen 600 mg PO Q8H PRN #20 tab PRN Reason: Pain Discharge Medication List Pantoprazole [Protonix] 40 mg PO DAILY 05/13/23 [History] busPIRone HCL [Buspar] 30 mg PO BID 05/13/23 [History] lisinopriL [Zestril] 5 mg PO DAILY 05/13/23 [History] Follow up Appointment(s)/Referral(s): Val Rey MD [STAFF PHYSICIAN] - 3 Weeks (The office will call to schedule an appointment to further discuss hiatal hernia repair.) [facility] [Primary Care Provider] - 05/24/23 3:30 pm Patient Instructions/Handouts: Hiatal Hernia (DC), Low Fat Diet (DC), Soft Diet (DC) Activity/Diet/Wound Care/Special Instructions: Activity: As tolerated. Take breaks as needed. Diet: Soft Diet Heart healthy .. Avoid salts, or foods with hidden salts such as canned or boxed foods and frozen dinners. Extra salt makes your heart work harder and traps the fluid in your body for longer. Special Instructions: DR. REY OFFICE WILL CALL YOU WITH APPOINTMENT DATE AND TIME. Take all of your medications as directed and remember to keep all of your doctor's appointments and follow-up as needed. Thank you for allowing us to participate in your care, it was truly a pleasure having you for our patient!!! Discharge Disposition: HOME SELF-CARE
--- NOTE | 2023-05-27 16:03 | CDI ---
Documentation Clarification Form Date: 05/27/2023 03:38:20 PM From: Misty Cruz Admit Date: 05/14/2023 01:11:00 PM Patient Name: Flakito Frazier Visit Number: [id number] Discharge Date: 05/17/2023 03:08:00 PM ATTENTION: The Clinical Documentation Specialists (CDI) and [facility] Coding Staff appreciate your assistance in clarifying documentation. Please respond to the clarification below the line at the bottom and electronically sign. The CDI & [facility] Coding staff will review the response and follow-up if needed. Please note: Queries are made part of the Legal Health Record. If you have any questions, please contact the author of this message via ITS. Dr. Ruben Treviño Conflicting documentation has been found in the medical record. As attending physician, please provide clarification. Per the Discharge Summary 05/17/23 the patients final diagnosis was Acute Cholecystitis, and elevated liver enzymes with hyperbilirubinemia. However in the body of the discharge summary from 05/17/23 it states General surgery cleared the patient from their perspective, stating no further need for antibiotics as cholecystitis is ruled out History/Risk Factors: Patient is a 37 year old male, with cognitive impairment, hypertension, OCD with anxiety, and GERD. Clinical Indicators: Patient presented to the ED with intractable right upper quadrant pain. He was seen the day prior to admit in the ED for the same complaints, underwent a full evaluation resulting in biliary colic, and gallbladder sludge and was discharged home. Patient returned the next day with worsening intractable right upper quadrant pain and nausea. CBC showed leukocytosis at 10.9. Liver profile showed elevated total bili of 2.3 and ALT of 51, Bilirubin was 1.7. General surgery was contacted. Plan was to undergo laparoscopic cholecystectomy. Patient underwent an EGD and MRCP. Per the EGD patient has a hiatal hernia, erosive esophagitis, and chronic gastritis. Per the MRCP there was no evidence to suggest ductal stricture, choledocholithiasis, or biliary ductal dilation. Hepatic steatosis and small hiatal hernia Treatment: gentle IV hydration and IV antibiotics with Rocephin 2g every 24 hours. Please clarify which diagnosis after study was responsible for the patients admission to the hospital: [ ] Acute Cholecystitis is confirmed [ x ] Acute Cholecystitis is ruled out- please specify what was the cause of the patient's presenting symptoms after study__biliary colic from cholelithiasis [ ] Other (please specify) [ ] Unable to determine MTDD
== END 2023-05-17 15:08 | disposition home or self-care (01) | DRG 445 ==
LOC: EC 10:43 → 5NMEDONC 13:11
PROVIDERS: ADMIT Student in an Organized Health Care Education/Training Program; ATTEND Student in an Organized Health Care Education/Training Program
PROC: 0DB38ZX Excision of Lower Esophagus, Via Natural or Artificial Opening Endoscopic, Diagnostic (ICD-10-PCS; principal; 2023-05-16 08:25)
PROC: 0DB98ZX Excision of Duodenum, Via Natural or Artificial Opening Endoscopic, Diagnostic (ICD-10-PCS; principal; 2023-05-16 08:25)
PROC: 0DB78ZX Excision of Stomach, Pylorus, Via Natural or Artificial Opening Endoscopic, Diagnostic (ICD-10-PCS; principal; 2023-05-16 08:25)
DX: K80.70 Calculus of gallbladder and bile duct without cholecystitis without obstruction (principal); K22.10 Ulcer of esophagus without bleeding; K21.9 Gastro-esophageal reflux disease without esophagitis; E66.01 Morbid (severe) obesity due to excess calories; Z68.34 Body mass index [BMI] 34.0-34.9, adult; K44.9 Diaphragmatic hernia without obstruction or gangrene; K29.50 Unspecified chronic gastritis without bleeding; I10 Essential (primary) hypertension; G31.84 Mild cognitive impairment of uncertain or unknown etiology; E80.6 Other disorders of bilirubin metabolism; F42.9 Obsessive-compulsive disorder, unspecified; F41.9 Anxiety disorder, unspecified; Z79.899 Other long term (current) drug therapy; Z88.8 Allergy status to other drugs, medicaments and biological substances
CPT/HCPCS: 36415; 43239; 71046; 74181; 80053; 83605; 83690; 83735; 84484; 85025; 85027; 85610; 85730; 87040; 88305; 93005; 94760; 96361; 96365; 96375; 99285

== ENCOUNTER 2023-05-20 15:45 | Emergency (ER) | payer MEDICARE, OTHER ==
[2023-05-20 15:54] VITALS: BP 146/89; PULSE 65; RESP 18; TEMP 97.7
--- NOTE | 2023-05-20 17:30 | ED ---
General Adult HPI - General Chief complaint: Abdominal Pain Stated complaint: Abd pain Time Seen by Provider: 05/20/23 16:53 Source: patient, RN notes reviewed Mode of arrival: ambulatory Limitations: no limitations - History of Present Illness Initial comments: 37-year-old male presents to the emergency department for evaluation of abdominal pain. Patient states that he was recently discharged for the same thing. He states that he was doing well for around 1 day but the symptoms came back yesterday and worse today. He notes that he had an MRCP performed and an upper endoscopy which were essentially normal besides a small hiatal hernia. He states that he was not started on any medication for pain prior to discharge. He denies recent fevers, vomiting. - Related Data Home Medications Medication Instructions Recorded Confirmed Pantoprazole [Protonix] 40 mg PO DAILY 05/13/23 05/14/23 busPIRone HCL [Buspar] 30 mg PO BID 05/13/23 05/14/23 lisinopriL [Zestril] 5 mg PO DAILY 05/13/23 05/14/23 Previous Rx's Medication Instructions Recorded Sucralfate [Carafate] 1 gm PO BID #14 tab 05/20/23 Allergies Allergy/AdvReac Type Severity Reaction Status Date / Time amphetamine aspartate Allergy Unknown Verified 05/20/23 15:49 [From Adderall] Childhood amphetamine sulfate Allergy Unknown Verified 05/20/23 15:49 [From Adderall] Childhood dextroamphetamine saccharate Allergy Unknown Verified 05/20/23 15:49 [From Adderall] Childhood dextroamphetamine sulfate Allergy Unknown Verified 05/20/23 15:49 [From Adderall] Childhood methylphenidate HCl Allergy Unknown Verified 05/20/23 15:49 [From Ritalin] Childhood Review of Systems ROS Statement: Those systems with pertinent positive or pertinent negative responses have been documented in the HPI. ROS Other: All systems not noted in ROS Statement are negative. Past Medical History Past Medical History: No Reported History Additional Past Medical History / Comment(s): OBSESSIVE COMPULSIVE DISORDER. History of Any Multi-Drug Resistant Organisms: None Reported Past Surgical History: No Surgical Hx Reported Past Psychological History: Anxiety Smoking Status: Never smoker Past Alcohol Use History: None Reported Past Drug Use History: None Reported General Exam Limitations: no limitations General appearance: alert, in no apparent distress Head exam: Present: atraumatic, normocephalic, normal inspection Eye exam: Present: normal appearance, PERRL, EOMI. Absent: scleral icterus, conjunctival injection, periorbital swelling ENT exam: Present: normal exam, mucous membranes moist Neck exam: Present: normal inspection. Absent: tenderness, meningismus, lymphadenopathy Respiratory exam: Present: normal lung sounds bilaterally. Absent: respiratory distress, wheezes, rales, rhonchi, stridor Cardiovascular Exam: Present: regular rate, normal rhythm, normal heart sounds. Absent: systolic murmur, diastolic murmur, rubs, gallop, clicks GI/Abdominal exam: Present: soft, normal bowel sounds. Absent: distended, tenderness, guarding, rebound, rigid Extremities exam: Present: normal inspection, full ROM, normal capillary refill. Absent: tenderness, pedal edema, joint swelling, calf tenderness Back exam: Present: normal inspection Neurological exam: Present: alert, oriented X3 Psychiatric exam: Present: normal affect, normal mood Skin exam: Present: warm, dry, intact, normal color. Absent: rash Course Vital Signs 05/20/23 15:46 Temperature 97.7 F Pulse Rate 65 Respiratory 18 Rate Blood Pressure 146/89 O2 Sat by Pulse 99 Oximetry Medical Decision Making - Medical Decision Making Was pt. sent in by a medical professional or institution (, PA, HEEL COVERER MACHINE OPERATOR, urgent care, hospital, or care home...) When possible be specific @ -No Did you speak to anyone other than the patient for history (EMS, parent, family, police, friend...)? What history was obtained from this source @ -No Did you review nursing and triage notes (agree or disagree)? Why? @ -I reviewed and agree with nursing and triage notes Were old charts reviewed (outside hosp., previous admission, EMS record, old EKG, old radiological studies, urgent care reports/EKG's, care home records)? Report findings @ -No old charts were reviewed Differential Diagnosis (chest pain, altered mental status, abdominal pain women, abdominal pain men, vaginal bleeding, weakness, fever, dyspnea, syncope, headache, dizziness, GI bleed, back pain, seizure, CVA, palpatations, mental health, musculoskeletal)? @ -Differential Abdominal Pain Men: Appendicitis, cholecystitis, diverticulosis, ischemic bowel, pancreatitis, hepatitis, UTI, gastroenteritis, AAA, incarcerated hernia, bowel obstruction, constipation, inflammatory bowel, hepatitis, peptic ulcer disease, splenic infarction, perforated viscus, testicular torsion, this is not meant to be an all-inclusive list EKG interpreted by me (3pts min.). @ -None X-rays interpreted by me (1pt min.). @ -None done CT interpreted by me (1pt min.). @ -None done U/S interpreted by me (1pt. min.). @ -None done What testing was considered but not performed or refused? (CT, X-rays, U/S, labs)? Why? @ -None What meds were considered but not given or refused? Why? @ -None Did you discuss the management of the patient with other professionals (professionals i.e. , PA, HEEL COVERER MACHINE OPERATOR, lab, RT, psych nurse, social service worker, sheet metal apprentice, teacher, air control/anti air warfare officer, case packer)? Give summary @ -No Was smoking cessation discussed for >3mins.? @ -No Was critical care preformed (if so, how long)? @ -No Were there social determinants of health that impacted care today? How? (Homelessness, low income, unemployed, alcoholism, drug addiction, transportation, low edu. Level, literacy, decrease access to med. care, long term, rehab)? @ -No Was there de-escalation of care discussed even if they declined (Discuss DNR or withdrawal of care, Hospice)? DNR status @ -No What co-morbidities impacted this encounter? (DM, HTN, Smoking, COPD, CAD, Cancer, CVA, ARF, Chemo, Hep., AIDS, mental health diagnosis, sleep apnea, morbid obesity)? @ -None Was patient admitted / discharged? Hospital course, mention meds given and route, prescriptions, significant lab abnormalities, going to OR and other pertinent info. @ -Discharge. Patient presented to the emergency department for epigastric abdominal discomfort. He was recently admitted to this and was found to have a small hiatal hernia, gastritis, esophagitis. He has been taking his pantoprazole as prescribed. He is concerned because he thought he was supposed to go home with other pain medicine. Discussed lifestyle modifications and follow-up with his surgeon. Patient provided a GI cocktail. Initially was going to obtain new lab work, patient declined at this time. Patient discharged home. Patient understanding agreeable with plan. Stable at time of discharge. Case discussed with Dr. Kaufman Undiagnosed new problem with uncertain prognosis? @ -No Drug Therapy requiring intensive monitoring for toxicity (Heparin, Nitro, Insulin, Cardizem)? @ -No Were any procedures done? @ -No Diagnosis/symptom? @ -Gastritis Acute, or Chronic, or Acute on Chronic? @ -Acute Uncomplicated (without systemic symptoms) or Complicated (systemic symptoms)? @ -Uncomplicated Side effects of treatment? @ -No Exacerbation, Progression, or Severe Exacerbation? @ -No Poses a threat to life or bodily function? How? (Chest pain, [place], [place], pneumonia, PE, COPD, DKA, ARF, appy, cholecystitis, CVA, Diverticulitis, Homicidal, S uicidal, threat to staff... and all critical care pts) @ -No Disposition Clinical Impression: Gastritis, Esophagitis Disposition: HOME SELF-CARE Condition: Stable Instructions (If sedation given, give patient instructions): Gastritis (ED) Additional Instructions: Follow up with Dr. Rey. Take medication as prescribed. Elevate the head of your bed, do not eat more than 2 hours prior to bedtime. Limit acidic food. Quit alcohol consumption and smoking. Return to the emergency department for new or worsening symptoms. Prescriptions: Sucralfate [Carafate] 1 gm PO BID #14 tab Is patient prescribed a controlled substance at d/c from ED?: No Referrals: [facility] [Primary Care Provider] - 1-2 days
[2023-05-20] MEDS: MAG HYDROX/AL HYDROX/SIMETH 30 ML, HYOSCYAMINE ELIXIR 10 ML, LIDOCAINE VISCOUS 2% 10 ML PO STA (18:27)
== END 2023-05-20 18:32 | disposition home or self-care (01) ==
LOC: EC 15:45
DX: K29.70 Gastritis, unspecified, without bleeding (principal); K20.90 Esophagitis, unspecified without bleeding; Z88.8 Allergy status to other drugs, medicaments and biological substances
CPT/HCPCS: 99283

== ENCOUNTER 2023-06-24 19:29 | Emergency (ER) | payer MEDICARE, OTHER ==
[2023-06-24 19:58] VITALS: RESP 18; TEMP 97.6
--- NOTE | 2023-06-24 21:39 | ED ---
ENT HPI - General Chief complaint: Dental/Oral Stated complaint: Abcess in mouth Time Seen by Provider: 06/24/23 20:39 Source: patient, RN notes reviewed Mode of arrival: ambulatory Limitations: no limitations - History of Present Illness Initial comments: 38-year-old male presenting oral pain x 5 days. States that he feels discomfort on the left side of the roof of his mouth. Denies redness swelling, or difficulty breathing or swallowing. Denies fever or URI symptoms. States he had all teeth extracted many years ago. - Related Data Home Medications Medication Instructions Recorded Confirmed Pantoprazole [Protonix] 40 mg PO DAILY 05/13/23 05/14/23 busPIRone HCL [Buspar] 30 mg PO BID 05/13/23 05/14/23 lisinopriL [Zestril] 5 mg PO DAILY 05/13/23 05/14/23 Previous Rx's Medication Instructions Recorded Sucralfate [Carafate] 1 gm PO BID #14 tab 05/20/23 Triamcinolone 0.1% Cream [Kenalog 1 applicatio TOPICAL BID #15 gram 06/24/23 0.1% Cream] Allergies Allergy/AdvReac Type Severity Reaction Status Date / Time amphetamine aspartate Allergy Unknown Verified 06/24/23 19:38 [From Adderall] Childhood amphetamine sulfate Allergy Unknown Verified 06/24/23 19:38 [From Adderall] Childhood dextroamphetamine saccharate Allergy Unknown Verified 06/24/23 19:38 [From Adderall] Childhood dextroamphetamine sulfate Allergy Unknown Verified 06/24/23 19:38 [From Adderall] Childhood methylphenidate HCl Allergy Unknown Verified 06/24/23 19:38 [From Ritalin] Childhood Review of Systems ROS Statement: Those systems with pertinent positive or pertinent negative responses have been documented in the HPI. ROS Other: All systems not noted in ROS Statement are negative. Past Medical History Past Medical History: No Reported History Additional Past Medical History / Comment(s): OBSESSIVE COMPULSIVE DISORDER. History of Any Multi-Drug Resistant Organisms: None Reported Past Surgical History: No Surgical Hx Reported Past Psychological History: Anxiety Smoking Status: Never smoker Past Alcohol Use History: None Reported Past Drug Use History: None Reported General Exam Limitations: no limitations General appearance: alert, in no apparent distress Head exam: Present: atraumatic, normocephalic, normal inspection ENT exam: Present: normal exam, normal oropharynx, mucous membranes moist, TM's normal bilaterally, other (No fluctuant mass, erythema, edema, tenderness to palpation, or drainage present in oral cavity.) Neck exam: Present: normal inspection. Absent: tenderness, meningismus, lymphadenopathy Respiratory exam: Present: normal lung sounds bilaterally. Absent: respiratory distress, wheezes, rales, rhonchi, stridor Cardiovascular Exam: Present: regular rate, normal rhythm, normal heart sounds. Absent: systolic murmur, diastolic murmur, rubs, gallop, clicks Neurological exam: Present: alert, oriented X3, CN II-XII intact Psychiatric exam: Present: normal affect, normal mood Skin exam: Present: warm, dry, intact, normal color. Absent: rash Course Vital Signs 06/24/23 06/24/23 19:36 21:46 Temperature 97.6 F Pulse Rate 87 70 Respiratory 18 18 Rate Blood Pressure 171/106 148/93 O2 Sat by Pulse 98 96 Oximetry Medical Decision Making - Medical Decision Making Was pt. sent in by a medical professional or institution (, PA, TRANSPORTER RADIOLOGY, urgent care, hospital, or fpc...) When possible be specific @ -No Did you speak to anyone other than the patient for history (EMS, parent, family, police, friend...)? What history was obtained from this source @ -No Did you review nursing and triage notes (agree or disagree)? Why? @ -I reviewed and agree with nursing and triage notes Were old charts reviewed (outside hosp., previous admission, EMS record, old EKG, old radiological studies, urgent care reports/EKG's, fpc records)? Report findings @ -No old charts were reviewed Differential Diagnosis (chest pain, altered mental status, abdominal pain women, abdominal pain men, vaginal bleeding, weakness, fever, dyspnea, syncope, headache, dizziness, GI bleed, back pain, seizure, CVA, palpatations, mental health, musculoskeletal)? @ -Dental abscess, dental infection, canker sore, tumor EKG interpreted by me (3pts min.). @ -None X-rays interpreted by me (1pt min.). @ -None done CT interpreted by me (1pt min.). @ -None done U/S interpreted by me (1pt. min.). @ -None done What testing was considered but not performed or refused? (CT, X-rays, U/S, labs)? Why? @ -None What meds were considered but not given or refused? Why? @ -None Did you discuss the management of the patient with other professionals (professionals i.e. , PA, TRANSPORTER RADIOLOGY, lab, RT, psych nurse, secondary social studies teacher, manager sustainability, teacher, investment officer, director of casework)? Give summary @ -No Was smoking cessation discussed for >3mins.? @ -No Was critical care preformed (if so, how long)? @ -No Were there social determinants of health that impacted care today? How? (Homelessness, low income, unemployed, alcoholism, drug addiction, transporta tion, low edu. Level, literacy, decrease access to med. care, prison, rehab)? @ -No Was there de-escalation of care discussed even if they declined (Discuss DNR or withdrawal of care, Hospice)? DNR status @ -No What co-morbidities impacted this encounter? (DM, HTN, Smoking, COPD, CAD, Cancer, CVA, ARF, Chemo, Hep., AIDS, mental health diagnosis, sleep apnea, morbid obesity)? @ -None Was patient admitted / discharged? Hospital course, mention meds given and route, prescriptions, significant lab abnormalities, going to OR and other pertinent info. @ -Patient was discharged. Patient was seen and evaluated for oral pain x 5 days. Vitals and physical examination are unremarkable. There is no sign of bacterial infection or alarm symptoms today. Discussed with patient symptoms are likely caused by aphthous ulcer. Supportive care discussed. Follow-up with dentist. Return/alarm symptoms discussed with patient and patient shows understanding and agrees. Patient discharged in stable condition. Case discussed with Dr. Little Undiagnosed new problem with uncertain prognosis? @ -No Drug Therapy requiring intensive monitoring for toxicity (Heparin, Nitro, Insulin, Cardizem)? @ -No Were any procedures done? @ -No Diagnosis/symptom? @ -aphthous ulcer Acute, or Chronic, or Acute on Chronic? @ -Acute Uncomplicated (without systemic symptoms) or Complicated (systemic symptoms)? @ -Uncomplicated Side effects of treatment? @ -No Exacerbation, Progression, or Severe Exacerbation? @ -No Poses a threat to life or bodily function? How? (Chest pain, [place], [place], pneumonia, PE, COPD, DKA, ARF, appy, cholecystitis, CVA, Diverticulitis, Homicidal, Suicidal, threat to staff... and all critical care pts) @ -No Disposition Clinical Impression: Oral aphthous ulcer Disposition: HOME SELF-CARE Condition: Stable Instructions (If sedation given, give patient instructions): Canker Sores (ED) Additional Instructions: Please return to the Emergency Department if symptoms worsen or any other concerns. Prescriptions: Triamcinolone 0.1% Cream [Kenalog 0.1% Cream] 1 applicatio TOPICAL BID #15 gram Is patient prescribed a controlled substance at d/c from ED?: No Referrals: [facility] [Primary Care Provider] - 1-2 days Time of Disposition: 21:39
[2023-06-24 21:59] VITALS: BP 148/93; PULSE 70
== END 2023-06-24 22:03 | disposition home or self-care (01) ==
LOC: EC 19:29
DX: K12.0 Recurrent oral aphthae (principal); Z88.8 Allergy status to other drugs, medicaments and biological substances
CPT/HCPCS: 99282

== ENCOUNTER 2023-06-25 12:27 | Emergency (ER) | payer MEDICARE, OTHER ==
[2023-06-25] MEDS: BENZOCAINE SPRAY 1 CAN MUCOUS MEM STA (12:58)
[2023-06-25] MEDS: MAG HYDROX/AL HYDROX/SIMETH 30 ML, HYOSCYAMINE ELIXIR 10 ML, LIDOCAINE VISCOUS 2% 10 ML PO STA (12:58)
--- NOTE | 2023-06-25 13:26 | ED ---
ENT HPI - General Chief complaint: ENT Stated complaint: Lump roof of mouth, sore throat Time Seen by Provider: 06/25/23 12:42 Source: patient, RN notes reviewed Mode of arrival: ambulatory Limitations: no limitations - History of Present Illness Initial comments: This is a 38-year-old male who presents to the emergency department for a sore throat and a bump on his mouth. States that the throat irritation started a week ago, and he noticed the bump yesterday. He feels the bump on the roof of his mouth. Denies any difficulty speaking or swallowing. Believes that symptoms may be related to GERD. He is using cough drops without relief in symptoms. MD complaint: sore throat - Related Data Home Medications Medication Instructions Recorded Confirmed Pantoprazole [Protonix] 40 mg PO DAILY 05/13/23 05/14/23 busPIRone HCL [Buspar] 30 mg PO BID 05/13/23 05/14/23 lisinopriL [Zestril] 5 mg PO DAILY 05/13/23 05/14/23 Previous Rx's Medication Instructions Recorded Sucralfate [Carafate] 1 gm PO BID #14 tab 05/20/23 Triamcinolone 0.1% Cream [Kenalog 1 applicatio TOPICAL BID #15 gram 06/24/23 0.1% Cream] Acet/Diph/Lido/Leik-Btb-Wpt-Si 5 ml PO Q4-6H PRN #240 ml 06/25/23 [Tyl/Benadryl/Lido/Maalox] Allergies Allergy/AdvReac Type Severity Reaction Status Date / Time amphetamine aspartate Allergy Unknown Verified 06/25/23 12:32 [From Adderall] Childhood amphetamine sulfate Allergy Unknown Verified 06/25/23 12:32 [From Adderall] Childhood dextroamphetamine saccharate Allergy Unknown Verified 06/25/23 12:32 [From Adderall] Childhood dextroamphetamine sulfate Allergy Unknown Verified 06/25/23 12:32 [From Adderall] Childhood methylphenidate HCl Allergy Unknown Verified 06/25/23 12:32 [From Ritalin] Childhood Review of Systems ROS Statement: Those systems with pertinent positive or pertinent negative responses have been documented in the HPI. ROS Other: All systems not noted in ROS Statement are negative. Past Medical History Past Medical History: No Reported History Additional Past Medical History / Comment(s): OBSESSIVE COMPULSIVE DISORDER. History of Any Multi-Drug Resistant Organisms: None Reported Past Surgical History: No Surgical Hx Reported Past Psychological History: Anxiety Smoking Status: Never smoker Past Alcohol Use History: None Reported Past Drug Use History: None Reported General Exam Limitations: no limitations General appearance: alert, in no apparent distress Head exam: Present: atraumatic, normocephalic, normal inspection ENT exam: Present: other (Small clear fluid-filled blister to the top of the palate consistent with a possible aphthous ulcer.) Respiratory exam: Present: normal lung sounds bilaterally. Absent: respiratory distress, wheezes, rales, rhonchi, stridor Cardiovascular Exam: Present: regular rate, normal rhythm, normal heart sounds. Absent: systolic murmur, diastolic murmur, rubs, gallop, clicks Neurological exam: Present: alert, oriented X3, CN II-XII intact Psychiatric exam: Present: normal affect, normal mood Skin exam: Present: warm, dry, intact, normal color. Absent: rash Course Vital Signs 06/25/23 06/25/23 12:30 13:53 Temperature 97.8 F 98.1 F Pulse Rate 59 L 63 Respiratory 16 18 Rate Blood Pressure 160/92 142/89 O2 Sat by Pulse 97 98 Oximetry Medical Decision Making - Medical Decision Making This is a 38 year old male who presents to the emergency department for a sore throat. Was pt. sent in by a medical professional or institution? @ -No Did you speak to anyone other than the patient for history? @ -No Did you review nursing and triage notes? @ -Yes, and I agree, it is accurate with regards to the patient's symptoms. Were old charts reviewed? @ -No Differential Diagnosis? @ -Differential Sore Throat: Strep pharyngitis, herpes zoster, COVID, influenza, GERD, allergic rhinitis, mononucleosis, this is not meant to be an all-inclusive list. EKG interpreted by me (3pts min.)? @ -Not obtained X-rays interpreted by me (1pt min.)? @ -Not obtained CT interpreted by me (1pt min.)? @ -Not obtained U/S interpreted by me (1pt. min.)? @ -Not obtained What testing was considered but not performed? (CT, X-rays, U/S, labs)? Why? @ -None What meds were considered but not given? Why? @ -None Did you discuss the management of the patient with other professionals? @ -No Did you reconcile home meds? @ -No Was smoking cessation discussed for >3mins.? @ -No Was critical care preformed (if so, how long)? @ -No Were there social determinants of health that impacted care today? How? (Homelessness, low income, unemployed, alcoholism, drug addiction, transportation, low edu. Level, literacy, decrease access to med. care, penitentiary, rehab)? @ -No Was there de-escalation of care discussed even if they declined? (Discuss DNR or withdrawal of care, Hospice)? @ -No What co-morbidities impacted this encounter? (DM, HTN, Smoking, COPD, CAD, Cancer, CVA, Hep., AIDS, mental health diagnosis, sleep apnea, morbid obesity)? @ -GERD, cognitive delay Was patient admitted / discharged? @ -Discharged. Rapid strep test negative. Physical examination demonstrates what appears to be an aphthous ulcer to the roof of the mouth. Symptoms could also be related to his GERD. Patient given a GI cocktail and hurricane spray with some improvement in symptoms. Advised that this can take 2 weeks to heal. Prescription for Magic mouthwash consisting of Tylenol, Benadryl, Maalox, and lidocaine was provided with dosing instructions reviewed. Otherwise advised kiara mary-up with his primary care provider. Undiagnosed new problem with uncertain prognosis? @ -None Drug Therapy requiring intensive monitoring for toxicity (Heparin, Nitro, Insulin, Cardizem)? @ -None Were any procedures done? @ -None Diagnosis/symptom? @ -Aphthous ulcer, sore throat Acute, or Chronic, or Acute on Chronic? @ -Acute Uncomplicated (without systemic symptoms) or Complicated (systemic symptoms)? @ -Uncomplicated Side effects of treatment? @ -None Exacerbation, Progression, or Severe Exacerbation] @ -Not applicable Poses a threat to life or bodily function? @ -No Return precautions reviewed in depth, the patient is instructed to return to the emergency department with any new, worsening, or concerning symptoms. Patient verbalized understanding. This case was discussed in detail with the attending ED physician, Dr. Dsouza. Presentation, findings, and treatment plan discussed in detail as well. - Lab Data Lab Results 06/25/23 Range/Units 12:52 Group A Strep (PCR) NOT DETECTED (Not Detectd) Disposition Clinical Impression: Aphthous ulcer of mouth, GERD (gastroesophageal reflux disease) Disposition: HOME SELF-CARE Instructions (If sedation given, give patient instructions): Pharyngitis (ED) Additional Instructions: Return to the emergency department with any new, worsening, or concerning symptoms. You can take the medication prescribed every 4-6 hours to help with the sore throat. follow up with your primary care provider in 1-2 days. Prescriptions: Acet/Diph/Lido/Phmr-Npq-Piv-Si [Tyl/Benadryl/Lido/Maalox] 5 ml PO Q4-6H PRN #240 ml PRN Reason: Sore Throat Is patient prescribed a controlled substance at d/c from ED?: No Referrals: [facility] [Primary Care Provider] - 1-2 days Time of Disposition: 13:39
[2023-06-25 14:27] VITALS: BP 142/89; PULSE 63; RESP 18; TEMP 98.1
== END 2023-06-25 13:53 | disposition home or self-care (01) ==
LOC: EC 12:27
DX: K12.0 Recurrent oral aphthae (principal); K21.9 Gastro-esophageal reflux disease without esophagitis; Z88.8 Allergy status to other drugs, medicaments and biological substances
CPT/HCPCS: 87651; 99283

== ENCOUNTER 2023-06-28 17:06 | Emergency (ER) | payer MEDICARE, OTHER ==
[2023-06-28 17:26] VITALS: TEMP 97.6
--- NOTE | 2023-06-28 19:24 | XR ---
EXAMINATION TYPE: XR soft tissue neck DATE OF EXAM: 06/28/2023 7:16 PM CLINICAL INDICATION:Male, 38 years old with history of pain; [facility] COMPARISON: None TECHNIQUE: The soft tissues of the neck were imaged in frontal and lateral views. FINDINGS: The prevertebral soft tissues are unremarkable. There is no evidence of mass effect or trac heal deviation. No acute osseous abnormality demonstrated. No evidence of subglottic narrowing. IMPRESSION: No significant abnormality identified within the soft tissues of the neck.
--- NOTE | 2023-06-28 19:43 | ED ---
General Adult HPI - General Chief complaint: ENT Stated complaint: throat pain Time Seen by Provider: 06/28/23 18:02 Source: patient, RN notes reviewed Mode of arrival: ambulatory Limitations: no limitations - History of Present Illness Initial comments: 38-year-old male presents to the emergency department for evaluation of throat irritation. Patient states that this has been going on for around 2 weeks. He notes that he has been evaluated for the same thing in our emergency department recently. He was tested for strep pharyngitis which was negative. He notes that he continues to have some irritation in his throat. He states that he is unsure if is related to his acid reflux or his allergies. He does report that he is taking his medications for both of these. He denies any painful or difficulty swallowing. Denies fever, chills. - Related Data Home Medications Medication Instructions Recorded Confirmed Pantoprazole [Protonix] 40 mg PO DAILY 05/13/23 05/14/23 busPIRone HCL [Buspar] 30 mg PO BID 05/13/23 05/14/23 lisinopriL [Zestril] 5 mg PO DAILY 05/13/23 05/14/23 Previous Rx's Medication Instructions Recorded Sucralfate [Carafate] 1 gm PO BID #14 tab 05/20/23 Triamcinolone 0.1% Cream [Kenalog 1 applicatio TOPICAL BID #15 gram 06/24/23 0.1% Cream] Acet/Diph/Lido/Dqhu-Mix-Phw-Si 5 ml PO Q4-6H PRN #240 ml 06/25/23 [Tyl/Benadryl/Lido/Maalox] Allergies Allergy/AdvReac Type Severity Reaction Status Date / Time amphetamine aspartate Allergy Unknown Verified 06/28/23 17:13 [From Adderall] Childhood amphetamine sulfate Allergy Unknown Verified 06/28/23 17:13 [From Adderall] Childhood dextroamphetamine saccharate Allergy Unknown Verified 06/28/23 17:13 [From Adderall] Childhood dextroamphetamine sulfate Allergy Unknown Verified 06/28/23 17:13 [From Adderall] Childhood methylphenidate HCl Allergy Unknown Verified 06/28/23 17:13 [From Ritalin] Childhood Review of Systems ROS Statement: Those systems with pertinent positive or pertinent negative responses have been documented in the HPI. ROS Other: All systems not noted in ROS Statement are negative. Past Medical History Past Medical History: No Reported History Additional Past Medical History / Comment(s): OBSESSIVE COMPULSIVE DISORDER. History of Any Multi-Drug Resistant Organisms: None Reported Past Surgical History: No Surgical Hx Reported Past Psychological History: Anxiety Smoking Status: Never smoker Past Alcohol Use History: None Reported Past Drug Use History: None Reported General Exam Limitations: no limitations General appearance: alert, in no apparent distress Head exam: Present: atraumatic, normocephalic, normal inspection Eye exam: Present: normal appearance, PERRL, EOMI. Absent: scleral icterus, conjunctival injection, periorbital swelling ENT exam: Present: normal exam, normal oropharynx, mucous membranes moist Respiratory exam: Present: normal lung sounds bilaterally. Absent: respiratory distress, wheezes, rales, rhonchi, stridor Cardiovascular Exam: Present: regular rate, normal rhythm, normal heart sounds. Absent: systolic murmur, diastolic murmur, rubs, gallop, clicks Neurological exam: Present: alert, oriented X3 Psychiatric exam: Present: normal affect, normal mood Skin exam: Present: warm, dry, intact, normal color. Absent: rash Course Vital Signs 06/28/23 06/28/23 17:12 20:31 Temperature 97.6 F 97.6 F Pulse Rate 70 69 Respiratory 18 20 Rate Blood Pressure 150/87 138/86 O2 Sat by Pulse 96 96 Oximetry Medical Decision Making - Medical Decision Making Was pt. sent in by a medical professional or institution ([facility], [employer] [employer], urgent care, hospital, or prison...) When possible be specific @ -No Did you speak to anyone other than the patient for history (EMS, parent, family, police, friend...)? What history was obtained from this source @ -No Did you review nursing and triage notes (agree or disagree)? Why? @ -I reviewed and agree with nursing and triage notes Were old charts reviewed (outside hosp., previous admission, EMS record, old EKG, old radiological studies, urgent care reports/EKG's, prison records)? Report findings @ -No old charts were reviewed Differential Diagnosis (chest pain, altered mental status, abdominal pain women, abdominal pain men, vaginal bleeding, weakness, fever, dyspnea, syncope, headache, dizziness, GI bleed, back pain, seizure, CVA, palpatations, mental health, musculoskeletal)? @ -Strep pharyngitis, mononucleosis, GERD, allergic rhinitis, this list is not all inclusive EKG interpreted by me (3pts min.). @ -None X-rays interpreted by me (1pt min.). @ -X-ray soft tissue neck shows no acute abnormality CT interpreted by me (1pt min.). @ -None done U/S interpreted by me (1pt. min.). @ -None done What testing was considered but not performed or refused? (CT, X-rays, U/S, labs)? Why? @ -None What meds were considered but not given or refused? Why? @ -None Did you discuss the management of the patient with other professionals (professionals i.e. , PA, [employer], lab, RT, psych nurse, criminal justice social worker, land development project manager, teacher, customer service security officer, bottle caser)? Give summary @ -No Was smoking cessation discussed for >3mins.? @ -No Was critical care preformed (if so, how long)? @ -No Were there social determinants of health that impacted care today? How? (Homelessness, low income, unemployed, alcoholism, drug addiction, transporta tion, low edu. Level, literacy, decrease access to med. care, [facility], rehab)? @ -No Was there de-escalation of care discussed even if they declined (Discuss DNR or withdrawal of care, Hospice)? DNR status @ -No What co-morbidities impacted this encounter? (DM, HTN, Smoking, COPD, CAD, Cancer, CVA, ARF, Chemo, Hep., AIDS, mental health diagnosis, sleep apnea, morbid obesity)? @ -None Was patient admitted / discharged? Hospital course, mention meds given and route, prescriptions, significant lab abnormalities, going to OR and other pertinent info. @ -Discharged. Patient presented to the emergency department for evaluation of throat irritation. He states that this has been going on for 2 weeks he has tried multiple medications without relief. x-ray soft tissue neck shows no acute abnormality. Advised patient to follow-up with ear nose and throat. Patient understanding agreeable plan. Patient stable at time of discharge. Case discussed with Dr. Chowdary. Undiagnosed new problem with uncertain prognosis? @ -No Drug Therapy requiring intensive monitoring for toxicity (Heparin, Nitro, Insulin, Cardizem)? @ -No Were any procedures done? @ -No Diagnosis/symptom? @ -Throat irritation, GERD Acute, or Chronic, or Acute on Chronic? @ -Acute Uncomplicated (without systemic symptoms) or Complicated (systemic symptoms)? @ -Uncomplicated Side effects of treatment? @ -No Exacerbation, Progression, or Severe Exacerbation? @ -No Poses a threat to life or bodily function? How? (Chest pain, [place], CA, pneumonia, PE, COPD, DKA, ARF, appy, cholecystitis, CVA, Diverticulitis, Homicidal, Suicidal, threat to staff... and all critical care pts) @ -No Disposition Clinical Impression: GERD (gastroesophageal reflux disease), Throat irritation Disposition: HOME SELF-CARE Condition: Stable Instructions (If sedation given, give patient instructions): GERD (Gastroesophageal Reflux Disease) (ED) Additional Instructions: Follow up with ENT. Return to the emergency department for new or worsening symptoms. Is patient prescribed a controlled substance at d/c from ED?: No Referrals: [facility] [Primary Care Provider] - 1-2 days Francisco Orellana DO [Doctor of Osteopathic Medicine] - 1-2 days
[2023-06-28 20:42] VITALS: BP 138/86; PULSE 69; RESP 20
== END 2023-06-28 20:32 | disposition home or self-care (01) ==
LOC: EC 17:06
DX: R07.0 Pain in throat (principal); K21.9 Gastro-esophageal reflux disease without esophagitis; Z88.8 Allergy status to other drugs, medicaments and biological substances
CPT/HCPCS: 70360; 99283

== ENCOUNTER 2023-07-02 11:28 | Emergency (ER) | payer MEDICARE, OTHER ==
[2023-07-02 11:55] VITALS: TEMP 98.1
--- NOTE | 2023-07-02 13:01 | XR ---
EXAMINATION TYPE: XR KUB DATE OF EXAM: 07/02/2023 Comparison: 06/22/2022 Clinical History: 38-year-old male Abdominal pain, constipation Findings: Lung bases are clear. No evidence for free intraperitoneal air. No dilated small bowel or differential air-fluid levels. No significant stool burden. No suspicious calcifications seen. Impression: No evidence for free air or bowel obstruction. No significant stool burden seen.
--- NOTE | 2023-07-02 13:16 | ED ---
Abdominal Pain HPI - General Chief Complaint: Abdominal Pain Stated Complaint: constipation and abd pain Time Seen by Provider: 07/02/23 11:39 Source: patient, RN notes reviewed Mode of arrival: ambulatory Limitations: no limitations - History of Present Illness Initial Comments: This is a 38-year-old male who presents to the emergency department for abd ominal pain and constipation. States that this morning he had 2 small hard bowel movements and is concerned that he may be constipated. Denies any nausea or vomiting. Denies any blood in the stool. Reports only minor abdominal discomfort. Currently takes fiber gummies and medication for gas. - Related Data Home Medications Medication Instructions Recorded Confirmed Pantoprazole [Protonix] 40 mg PO DAILY 05/13/23 05/14/23 busPIRone HCL [Buspar] 30 mg PO BID 05/13/23 05/14/23 lisinopriL [Zestril] 5 mg PO DAILY 05/13/23 05/14/23 Previous Rx's Medication Instructions Recorded Sucralfate [Carafate] 1 gm PO BID #14 tab 05/20/23 Triamcinolone 0.1% Cream [Kenalog 1 applicatio TOPICAL BID #15 gram 06/24/23 0.1% Cream] Acet/Diph/Lido/Irwc-Nku-Qfa-Si 5 ml PO Q4-6H PRN #240 ml 06/25/23 [Tyl/Benadryl/Lido/Maalox] Allergies Allergy/AdvReac Type Severity Reaction Status Date / Time amphetamine aspartate Allergy Unknown Verified 07/02/23 11:37 [From Adderall] Childhood amphetamine sulfate Allergy Unknown Verified 07/02/23 11:37 [From Adderall] Childhood dextroamphetamine saccharate Allergy Unknown Verified 07/02/23 11:37 [From Adderall] Childhood dextroamphetamine sulfate Allergy Unknown Verified 07/02/23 11:37 [From Adderall] Childhood methylphenidate HCl Allergy Unknown Verified 07/02/23 11:37 [From Ritalin] Childhood Review of Systems ROS Statement: Those systems with pertinent positive or pertinent negative responses have been documented in the HPI. ROS Other: All systems not noted in ROS Statement are negative. Past Medical History Past Medical History: GERD/Reflux Additional Past Medical History / Comment(s): OBSESSIVE COMPULSIVE DISORDER. History of Any Multi-Drug Resistant Organisms: None Reported Past Surgical History: No Surgical Hx Reported Past Psychological History: Anxiety Smoking Status: Never smoker Past Alcohol Use History: None Reported Past Drug Use History: None Reported General Exam Limitations: no limitations General appearance: alert, in no apparent distress Head exam: Present: atraumatic, normocephalic, normal inspection Respiratory exam: Present: normal lung sounds bilaterally. Absent: respiratory distress, wheezes, rales, rhonchi, stridor Cardiovascular Exam: Present: regular rate, normal rhythm, normal heart sounds. Absent: systolic murmur, diastolic murmur, rubs, gallop, clicks GI/Abdominal exam: Present: soft, normal bowel sounds. Absent: distended, tenderness, guarding, rebound, rigid Neurological exam: Present: alert, oriented X3, CN II-XII intact Psychiatric exam: Present: normal affect, normal mood Skin exam: Present: warm, dry, intact, normal color. Absent: rash Course Vital Signs 07/02/23 07/02/23 11:35 13:29 Temperature 98.1 F Pulse Rate 55 L 65 Respiratory 20 18 Rate Blood Pressure 147/84 139/84 O2 Sat by Pulse 100 97 Oximetry Medical Decision Making - Medical Decision Making This is a 38 year old male who presents to the emergency department for abdominal pain and constipation. Was pt. sent in by a medical professional or institution? @ -No Did you speak to anyone other than the patient for history? @ -No Did you review nursing and triage notes? @ -Yes, and I agree, it is accurate with regards to the patient's symptoms. Were old charts reviewed? @ -No Differential Diagnosis? @ -Differential Abdominal Pain Men: Appendicitis, cholecystitis, diverticulosis, ischemic bowel, pancreatitis, hepatitis, UTI, gastroenteritis, AAA, incarcerated hernia, bowel obstruction, co nstipation, inflammatory bowel, hepatitis, peptic ulcer disease, splenic infarction, perforated viscus, testicular torsion, this is not meant to be an all-inclusive list EKG interpreted by me (3pts min.)? @ -Not obtained X-rays interpreted by me (1pt min.)? @ -KUB x-ray obtained. My interpretation identifies no dilation of large or small bowel loops. CT interpreted by me (1pt min.)? @ -Not obtained U/S interpreted by me (1pt. min.)? @ -Not obtained What testing was considered but not performed? (CT, X-rays, U/S, labs)? Why? @ -None What meds were considered but not given? Why? @ -None Did you discuss the management of the patient with other professionals? @ -No Did you reconcile home meds? @ -No Was smoking cessation discussed for >3mins.? @ -No Was critical care preformed (if so, how long)? @ -No Were there social determinants of health that impacted care today? How? (Homelessness, low income, unemployed, alcoholism, drug addiction, transportation, low edu. Level, literacy, decrease access to med. care, retirement, rehab)? @ -No Was there de-escalation of care discussed even if they declined? (Discuss DNR or withdrawal of care, Hospice)? @ -No What co-morbidities impacted this encounter? (DM, HTN, Smoking, COPD, CAD, Cancer, CVA, Hep., AIDS, mental health diagnosis, sleep apnea, morbid obesity)? @ -Developmental delay, hiatal hernia Was patient admitted / discharged? @ -Discharged. Physical examination unremarkable. KUB x-ray demonstrates no acute process. Advised ttkr-jbu-lzffrys MiraLAX or other stool softeners if needed for feelings of constipation and follow-up with his primary care provider. Undiagnosed new problem with uncertain prognosis? @ -None Drug Therapy requiring intensive monitoring for toxicity (Heparin, Nitro, Insulin, Cardizem)? @ -None Were any procedures done? @ -None Diagnosis/symptom? @ -Abdominal pain, constipation Acute, or Chronic, or Acute on Chronic? @ -Acute Uncomplicated (without systemic symptoms) or Complicated (systemic symptoms)? @ -Uncomplicated Side effects of treatment? @ -None Exacerbation, Progression, or Severe Exacerbation] @ -Not applicable Poses a threat to life or bodily function? @ -No Return precautions reviewed in depth, the patient is instructed to return to the emergency department with any new, worsening, or concerning symptoms. Patient verbalized understanding. This case was discussed in detail with the attending ED physician, Dr. Ba. Presentation, findings, and treatment plan discussed in detail as well. - Radiology Data Radiology results: report reviewed, image reviewed Disposition Clinical Impression: Constipation, Abdominal pain Disposition: HOME SELF-CARE Instructions (If sedation given, give patient instructions): Constipation (ED), Abdominal Pain (ED) Additional Instructions: Return to the emergency department with any new, worsening, or concerning symptoms. Take Tylenol as needed for pain relief. You can use syom-ctv-ofdtfnu MiraLAX or other stool softeners to produce normal bowel movements. Make sure you drink plenty of water. Follow up with your primary care provider in 1-2 days. Is patient prescribed a controlled substance at d/c from ED?: No Referrals: [facility] [Primary Care Provider] - 1-2 days Time of Disposition: 13:16
[2023-07-02 13:57] VITALS: BP 139/84; PULSE 65; RESP 18
== END 2023-07-02 13:30 | disposition home or self-care (01) ==
LOC: EC 11:28
DX: K59.00 Constipation, unspecified (principal); Z88.8 Allergy status to other drugs, medicaments and biological substances
CPT/HCPCS: 74018; 99284

== ENCOUNTER 2023-07-17 11:59 | Emergency (ER) | payer MEDICARE, OTHER ==
--- NOTE | 2023-07-17 12:44 | ED ---
General Adult HPI - General Chief complaint: Dental/Oral Stated complaint: Oral pain Time Seen by Provider: 07/17/23 12:28 Source: patient, RN notes reviewed Mode of arrival: ambulatory Limitations: no limitations - History of Present Illness Initial comments: 38 year old male presents to the emergency department for evaluation of ulcer in left lower cheek. He reports that this is somewhat painful. Patient states that it has been there for around 1 week. He notes that he has been using magic mouth wash and salt water gargles. He states that he has had aphthous ulcers in the past which have gone away on their own. He denies recent fever, chills. - Related Data Home Medications Medication Instructions Recorded Confirmed Pantoprazole [Protonix] 40 mg PO DAILY 05/13/23 05/14/23 busPIRone HCL [Buspar] 30 mg PO BID 05/13/23 05/14/23 lisinopriL [Zestril] 5 mg PO DAILY 05/13/23 05/14/23 Previous Rx's Medication Instructions Recorded Sucralfate [Carafate] 1 gm PO BID #14 tab 05/20/23 Triamcinolone 0.1% Cream [Kenalog 1 applicatio TOPICAL BID #15 gram 06/24/23 0.1% Cream] Acet/Diph/Lido/Afuk-Mkf-Ixt-Si 5 ml PO Q4-6H PRN #240 ml 06/25/23 [Tyl/Benadryl/Lido/Maalox] Allergies Allergy/AdvReac Type Severity Reaction Status Date / Time amphetamine aspartate Allergy Unknown Verified 07/02/23 11:37 [From Adderall] Childhood amphetamine sulfate Allergy Unknown Verified 07/02/23 11:37 [From Adderall] Childhood dextroamphetamine saccharate Allergy Unknown Verified 07/02/23 11:37 [From Adderall] Childhood dextroamphetamine sulfate Allergy Unknown Verified 07/02/23 11:37 [From Adderall] Childhood methylphenidate HCl Allergy Unknown Verified 07/02/23 11:37 [From Ritalin] Childhood Review of Systems ROS Statement: Those systems with pertinent positive or pertinent negative responses have been documented in the HPI. ROS Other: All systems not noted in ROS Statement are negative. Past Medical History Past Medical History: GERD/Reflux Additional Past Medical History / Comment(s): OBSESSIVE COMPULSIVE DISORDER. History of Any Multi-Drug Resistant Organisms: None Reported Past Surgical History: No Surgical Hx Reported Past Psychological History: Anxiety Smoking Status: Never smoker Past Alcohol Use History: None Reported Past Drug Use History: None Reported General Exam Limitations: no limitations General appearance: alert, in no apparent distress Head exam: Present: atraumatic, normocephalic, normal inspection Eye exam: Present: normal appearance, PERRL, EOMI. Absent: scleral icterus, conjunctival injection, periorbital swelling ENT exam: Present: normal oropharynx, mucous membranes moist, other (Aphthous ulcer to left lower ) Respiratory exam: Present: normal lung sounds bilaterally. Absent: respiratory distress, wheezes, rales, rhonchi, stridor Cardiovascular Exam: Present: regular rate, normal rhythm, normal heart sounds. Absent: systolic murmur, diastolic murmur, rubs, gallop, clicks Neurological exam: Present: alert, oriented X3 Psychiatric exam: Present: normal affect, normal mood Skin exam: Present: warm, dry, intact, normal color. Absent: rash Course Vital Signs 07/17/23 07/17/23 12:05 13:50 Temperature 97.8 F 97.9 F Pulse Rate 50 L 62 Respiratory 16 18 Rate Blood Pressure 152/90 136/70 O2 Sat by Pulse 98 97 Oximetry Medical Decision Making - Medical Decision Making Was pt. sent in by a medical professional or institution (OSWALDO Arnett, AMPOULE EXAMINER, urgent care, hospital, or long term...) When possible be specific @ -No Did you speak to anyone other than the patient for history (EMS, parent, family, police, friend...)? What history was obtained from this source @ -No Did you review nursing and triage notes (agree or disagree)? Why? @ -I reviewed and agree with nursing and triage notes Were old charts reviewed (outside hosp., previous admission, EMS record, old EKG, old radiological studies, urgent care reports/EKG's, long term records)? Report findings @ -No old charts were reviewed Differential Diagnosis (chest pain, altered mental status, abdominal pain women, abdominal pain men, vaginal bleeding, weakness, fever, dyspnea, syncope, headache, dizziness, GI bleed, back pain, seizure, CVA, palpatations, mental health, musculoskeletal)? @ -Aphthous ulcer, dental abscess, dental infection, dental abscess, dental appliance issue, parotiditis, strep throat, this list is not all inclusive EKG interpreted by me (3pts min.). @ -None X-rays interpreted by me (1pt min.). @ -None done CT interpreted by me (1pt min.). @ -None done U/S interpreted by me (1pt. min.). @ -None done What testing was considered but not performed or refused? (CT, X-rays, U/S, labs)? Why? @ -None What meds were considered but not given or refused? Why? @ -None Did you discuss the management of the patient with other professionals (professionals i.e. Dr., PA, AMPOULE EXAMINER, lab, RT, psych nurse, social worker masters, special forces medical sergeant, teacher, deputy probation officer, immigration case worker)? Give summary @ -No Was smoking cessation discussed for >3mins.? @ -No Was critical care preformed (if so, how long)? @ -No Were there social determinants of health that impacted care today? How? (Homelessness, low income, unemployed, alcoholism, drug addiction, transportation, low edu. Level, literacy, decrease access to med. care, senior care, rehab)? @ -No Was there de-escalation of care discussed even if they declined (Discuss DNR or withdrawal of care, Hospice)? DNR status @ -No What co-morbidities impacted this encounter? (DM, HTN, Smoking, COPD, CAD, Cancer, CVA, ARF, Chemo, Hep., AIDS, mental health diagnosis, sleep apnea, morbid obesity)? @ -None Was patient admitted / discharged? Hospital course, mention meds given and route, prescriptions, significant lab abnormalities, going to OR and other pertinent info. @ -Discharged. Patient presented to the emergency department for evaluation of an aphthous ulcer in his mouth. He reports a history of this and has been doing symptomatic treatment at home. He comes in frequently for the same thing. Advised him to continue utilizing symptomatic treatment with salt water gargles, Orajel. Advised him to follow-up with his primary care provider. He is understanding agreeable plan. Patient stable at time of discharge. Case discussed with Dr. Tidwell Undiagnosed new problem with uncertain prognosis? @ -No Drug Therapy requiring intensive monitoring for toxicity (Heparin, Nitro, Insulin, Cardizem)? @ -No Were any procedures done? @ -No Diagnosis/symptom? @ -Aphthous ulcer Acute, or Chronic, or Acute on Chronic? @ -acute Uncomplicated (without systemic symptoms) or Complicated (systemic symptoms)? @ -uncomplicated Side effects of treatment? @ -No Exacerbation, Progression, or Severe Exacerbation? @ -No Poses a threat to life or bodily function? How? (Chest pain, [place], [place], pneumonia, PE, COPD, DKA, ARF, appy, cholecystitis, CVA, Diverticulitis, Homicidal, Suicidal, threat to staff... and all critical care pts) @ -No Disposition Clinical Impression: Aphthous ulcer Disposition: HOME SELF-CARE Condition: Stable Instructions (If sedation given, give patient instructions): Nikos Smalls (ED) Additional Instructions: Please utilize salt water rinse, orajel. Follow up with your primary care provider. Return to the emergency department for new or worsening symptoms. Is patient prescribed a controlled substance at d/c from ED?: No Referrals: [facility] [Primary Care Provider] - 1-2 days
[2023-07-17 14:21] VITALS: BP 136/70; PULSE 62; RESP 18; TEMP 97.9
== END 2023-07-17 14:07 | disposition home or self-care (01) ==
LOC: EC 11:59
DX: K12.0 Recurrent oral aphthae (principal); Z91.02 Food additives allergy status; Z88.8 Allergy status to other drugs, medicaments and biological substances
CPT/HCPCS: 99282

== ENCOUNTER 2023-07-25 14:34 | Emergency (ER) | payer MEDICARE, OTHER ==
--- NOTE | 2023-07-25 16:41 | ED ---
Abdominal Pain HPI - General Chief Complaint: Abdominal Pain Time Seen by Provider: 07/25/23 16:40 Source: patient, RN notes reviewed Mode of arrival: ambulatory Limitations: no limitations - History of Present Illness Initial Comments: 38-year-old male presented to ER with a chief complaint of abdominal pain. He states he recently underwent a colonoscopy on Tuesday which came back normal. He states last night he started having crampy abdominal pain. He had a normal bowel movement this morning. He states since then he has been constipated. He denies any nausea, vomiting, decreased appetite, hematochezia, melena or urinary complaints. He states he has been taking [id number]-tlc-[id number] ibuprofen. She also was complaining of throat irritation. He has been taking Zyrtec. Denies any difficulty breathing, handling secretions, cough, congestion fevers or chills. - Related Data Home Medications Medication Instructions Recorded Confirmed Pantoprazole [Protonix] 40 mg PO DAILY 05/13/23 05/14/23 busPIRone HCL [Buspar] 30 mg PO BID 05/13/23 05/14/23 lisinopriL [Zestril] 5 mg PO DAILY 05/13/23 05/14/23 Previous Rx's Medication Instructions Recorded Sucralfate [Carafate] 1 gm PO BID #14 tab 05/20/23 Triamcinolone 0.1% Cream [Kenalog 1 applicatio TOPICAL BID #15 gram 06/24/23 0.1% Cream] Acet/Diph/Lido/Yjjg-Rfa-Hms-Si 5 ml PO Q4-6H PRN #240 ml 06/25/23 [Tyl/Benadryl/Lido/Maalox] polyethylene glycoL 3350 [Miralax] 17 gm PO DAILY 30 Days #527 gm 07/25/23 Allergies Allergy/AdvReac Type Severity Reaction Status Date / Time amphetamine aspartate Allergy Unknown Verified 07/25/23 16:30 [From Adderall] Childhood amphetamine sulfate Allergy Unknown Verified 07/25/23 16:30 [From Adderall] Childhood dextroamphetamine saccharate Allergy Unknown Verified 07/25/23 16:30 [From Adderall] Childhood dextroamphetamine sulfate Allergy Unknown Verified 07/25/23 16:30 [From Adderall] Childhood methylphenidate HCl Allergy Unknown Verified 07/25/23 16:30 [From Ritalin] Childhood Review of Systems ROS Statement: Those systems with pertinent positive or pertinent negative responses have been documented in the HPI. ROS Other: All systems not noted in ROS Statement are negative. Past Medical History Past Medical History: GERD/Reflux Additional Past Medical History / Comment(s): OBSESSIVE COMPULSIVE DISORDER. History of Any Multi-Drug Resistant Organisms: None Reported Past Surgical History: No Surgical Hx Reported Past Psychological History: Anxiety Smoking Status: Never smoker Past Alcohol Use History: None Reported Past Drug Use History: None Reported General Exam Limitations: no limitations General appearance: alert, in no apparent distress ENT exam: Present: normal exam, normal oropharynx, mucous membranes moist, TM's normal bilaterally Neck exam: Present: normal inspection. Absent: tenderness, meningismus, lymphadenopathy Respiratory exam: Present: normal lung sounds bilaterally. Absent: respiratory distress, wheezes, rales, rhonchi, stridor Cardiovascular Exam: Present: regular rate, normal rhythm, normal heart sounds. Absent: systolic murmur, diastolic murmur, rubs, gallop, clicks GI/Abdominal exam: Present: soft, tenderness (mild), normal bowel sounds. Absent: distended, guarding, rebound, rigid Neurological exam: Present: alert, oriented X3, CN II-XII intact Skin exam: Present: warm, dry, intact, normal color. Absent: rash Course Vital Signs 07/25/23 07/25/23 07/25/23 14:56 18:45 19:22 Temperature 98.1 F 98.3 F Pulse Rate 67 57 L 64 Respiratory 18 16 18 Rate Blood Pressure 148/81 144/75 146/74 O2 Sat by Pulse 99 97 97 Oximetry Medical Decision Making - Medical Decision Making Was pt. sent in by a medical professional or institution (, PA, DIETARY ASSISTANT, urgent care, hospital, or penitentiary...) When possible be specific @ -No Did you speak to anyone other than the patient for history (EMS, parent, family, police, friend...)? What history was obtained from this source @ -No Did you review nursing and triage notes (agree or disagree)? Why? @ -I reviewed and agree with nursing and triage notes Were old charts reviewed (outside hosp., previous admission, EMS record, old EKG, old radiological studies, urgent care reports/EKG's, penitentiary records)? Report findings @ -No old charts were reviewed Differential Diagnosis (chest pain, altered mental status, abdominal pain women, abdominal pain men, vaginal bleeding, weakness, fever, dyspnea, syncope, headache, dizziness, GI bleed, back pain, seizure, CVA, palpatations, mental health, musculoskeletal)? @ -Differential Abdominal Pain Men: Appendicitis, cholecystitis, diverticulosis, ischemic bowel, pancreatitis, hepatitis, UTI, gastroenteritis, AAA, incarcerated hernia, bowel obstruction, constipation, inflammatory bowel, hepatitis, peptic ulcer disease, splenic infarction, perforated viscus, testicular torsion, this is not meant to be an all-inclusive list EKG interpreted by me (3pts min.). @ -None X-rays interpreted by me (1pt min.). @ -KUB interpreted by me significant for moderate stool burden in the left colon. Nonspecific gas bowel pattern. CT interpreted by me (1pt min.). @ -None done U/S interpreted by me (1pt. min.). @ -None done What testing was considered but not performed or refused? (CT, X-rays, U/S, labs)? Why? @ -None What meds were considered but not given or refused? Why? @ -None Did you discuss the management of the patient with other professionals (professionals i.e. , PA, DIETARY ASSISTANT, lab, RT, psych nurse, social work faculty member, pre billing specialist, teacher, airport operations officer, manager case)? Give summary @ -No Was smoking cessation discussed for >3mins.? @ -No Was critical care preformed (if so, how long)? @ -No Were there social determinants of health that impacted care today? How? (Homelessness, low income, unemployed, alcoholism, drug addiction, transportation, low edu. Level, literacy, decrease access to med. care, fdc, rehab)? @ -No Was there de-escalation of care discussed even if they declined (Discuss DNR or withdrawal of care, Hospice)? DNR status @ -No What co-morbidities impacted this encounter? (DM, HTN, Smoking, COPD, CAD, Cancer, CVA, ARF, Chemo, Hep., AIDS, mental health diagnosis, sleep apnea, morbid obesity)? @ -None Was patient admitted / discharged? Hospital course, mention meds given and route, prescriptions, significant lab abnormalities, going to OR and other pertinent info. @ - Dishcarged. 38-year-old male presenting to the ER with a chief complaint of abdominal pain. History and physical exam completed. Vitals stable. Patient in no signs of acute distress and nontoxic-appearing. Mild abdominal tenderness to LLQ normal bowel sounds. Oropharynx open with no erythema, edema or exudates present. Lung sounds clear to auscultation bilaterally. Strep and viral swabs will be obtained due to throat irritation and KUB obtained due to abdominal pain. Patient agreeable for this plan. Strep, COVID, RSV, influenza negative. Urinalysis remarkable. KUB significant for moderate amount of stool in the descending colon starting at the rectum. Results discussed with patient, all questions answered. Abdominal pain believed to be due to constipation patient will be started on MiraLAX. I also advised patient to continue taking Zyrtec and Benadryl for throat irritation is believed to be viral/allergic in nature. Return parameters discussed. Patient discharged in stable condition with follow-up to PCP. Patient verbally expressed understanding and agreement with care plan. Case discussed with ED attending, Dr. Ba. Undiagnosed new problem with uncertain prognosis? @ -No Drug Therapy requiring intensive monitoring for toxicity (Heparin, Nitro, Insulin, Cardizem)? @ -No Were any procedures done? @ -No Diagnosis/symptom? @ -Constipation/throat irritation Acute, or Chronic, or Acute on Chronic? @ -Acute Uncomplicated (without systemic symptoms) or Complicated (systemic symptoms)? @ -Uncomplicated Side effects of treatment? @ -No Exacerbation, Progression, or Severe Exacerbation? @ -No Poses a threat to life or bodily function? How? (Chest pain, [place], [place], pneumonia, PE, COPD, DKA, ARF, appy, cholecystitis, CVA, Diverticulitis, Homicidal, Suicidal, threat to staff... and all critical care pts) @ -No - Lab Data Lab Results 07/25/23 07/25/23 07/25/23 Range/Units 16:44 18:10 18:10 Urine Color Light Yellow Urine Appearance Clear (Clear) Urine pH 6.0 (5.0-8.0) Ur Specific [place] 1.020 (1.001-1.035) Urine Protein Negative (Negative) Urine Glucose (UA) Negative (Negative) Urine Ketones Negative (Negative) Urine Blood Negative (Negative) Urine Nitrite Negative (Negative) Urine Bilirubin Negative (Negative) Urine Urobilinogen <2.0 (<2.0) mg/dL Ur Leukocyte Esterase Negative (Negative) Influenza Type A (PCR) Not Detected (Not Detectd) Influenza Type B (PCR) Not Detected (Not Detectd) RSV (PCR) Not Detected (Not Detectd) SARS-CoV-2 (PCR) Not Detected (Not Detectd) Group A Strep (PCR) NOT DETECTED (Not Detectd) - Radiology Data Radiology results: report reviewed, image reviewed Disposition Clinical Impression: Constipation, Throat irritation Disposition: HOME SELF-CARE Condition: Stable Additional Instructions: I recommend following up with primary care physician in the next 1 to 2 days. Take Zyrtec or Claritin in the morning for allergy. I also recommend Benadryl at bedtime. I recommend drinking plenty of water and MiraLAX daily for constipation relief. MiraLAX has been sent to your pharmacy. Return to the ER for any new or worsening concerns. Prescriptions: polyethylene glycoL 3350 [Miralax] 17 gm PO DAILY 30 Days #527 gm Is patient prescribed a controlled substance at d/c from ED?: No Referrals: [facility] [Primary Care Provider] - 1-2 days Time of Disposition: 19:09
[2023-07-25 17:08] LABS: Appearance,Urine Clear (Clear); Bilirubin,Urine Negative (Negative); Blood,Urine Negative (Negative); Color,Urine Light Yellow; Glucose,Urine (UA) Negative (Negative); Ketones,Urine Negative (Negative); Leukocyte Esterase,Urine Negative (Negative); Nitrite,Urine Negative (Negative); Protein,Urine Negative (Negative); Urobilinogen,Urine <2.0 mg/dL (<2.0)
--- NOTE | 2023-07-25 17:56 | XR ---
EXAMINATION TYPE: XR KUB DATE OF EXAM: 07/25/2023 5:32 PM CLINICAL INDICATION:Male, 38 years old with history of constipation; [facility] COMPARISON: 07/02/2023. TECHNIQUE: One radiographic view of the abdomen was obtained. FINDINGS: Moderate stool throughout the descending colon and rectum. The bowel gas pattern is nonspec ific without dilated loops of small or large bowel. There is no evidence for organomegaly or pneumope ritoneum. The osseous structures are intact. No abnormal calcifications are present. Fecal material and gas are demonstrated throughout the colon and rectum. IMPRESSION: 1. Moderate amount of stool in the descending colon and extending to the rectum. 2. Nonspecific bowel gas pattern without radiographic evidence for acute process.
[2023-07-25 19:26] VITALS: BP 146/74; PULSE 64; RESP 18; TEMP 98.3
== END 2023-07-25 19:26 | disposition home or self-care (01) ==
LOC: EC 14:34
DX: K59.00 Constipation, unspecified (principal); R07.0 Pain in throat; Z88.8 Allergy status to other drugs, medicaments and biological substances; Z11.52 Encounter for screening for COVID-19
CPT/HCPCS: 74018; 81003; 87636; 87651; 99284

== ENCOUNTER 2023-08-14 13:25 | Emergency (ER) | payer MEDICARE, OTHER ==
--- NOTE | 2023-08-14 14:01 | ED ---
General Adult HPI - General Chief complaint: Chest Pain Stated complaint: Chest pain, abd pain Time Seen by Provider: 08/14/23 13:35 Source: patient Mode of arrival: ambulatory Limitations: no limitations - History of Present Illness Initial comments: Dictation was produced using [employer] dictation software. please excuse any grammatical, word or spelling errors. Chief Complaint: 38-year-old male with reported history of gastritis presents to the ER for chest and abdominal pain History of Present Illness: Patient is a 38-year-old male he reports history of gastritis. Patient states for the last couple hours she has been having chest and abdominal pain. Patient states that he has a sharp pain to his left anterior chest. Patient also complaining of left lower quadrant abdominal pain. Describes it as a burning sensation. He states that he thinks that this is his gastritis. Denies fever and coughing. The ROS documented in this emergency department record has been reviewed and confirmed by me. Those systems with pertinent positive or negative responses have been documented in the HPI. All other systems are other negative and/or noncontributory. - Related Data Home Medications Medication Instructions Recorded Confirmed Pantoprazole [Protonix] 40 mg PO DAILY 05/13/23 05/14/23 busPIRone HCL [Buspar] 30 mg PO BID 05/13/23 05/14/23 lisinopriL [Zestril] 5 mg PO DAILY 05/13/23 05/14/23 Previous Rx's Medication Instructions Recorded Sucralfate [Carafate] 1 gm PO BID #14 tab 05/20/23 Triamcinolone 0.1% Cream [Kenalog 1 applicatio TOPICAL BID #15 gram 06/24/23 0.1% Cream] Acet/Diph/Lido/Lzyo-Pyq-Ndi-Si 5 ml PO Q4-6H PRN #240 ml 06/25/23 [Tyl/Benadryl/Lido/Maalox] polyethylene glycoL 3350 [Miralax] 17 gm PO DAILY 30 Days #527 gm 07/25/23 Allergies Allergy/AdvReac Type Severity Reaction Status Date / Time amphetamine aspartate Allergy Unknown Verified 08/14/23 13:33 [From Adderall] Childhood amphetamine sulfate Allergy Unknown Verified 08/14/23 13:33 [From Adderall] Childhood dextroamphetamine saccharate Allergy Unknown Verified 08/14/23 13:33 [From Adderall] Childhood dextroamphetamine sulfate Allergy Unknown Verified 08/14/23 13:33 [From Adderall] Childhood methylphenidate HCl Allergy Unknown Verified 08/14/23 13:33 [From Ritalin] Childhood Review of Systems ROS Statement: Those systems with pertinent positive or pertinent negative responses have been documented in the HPI. ROS Other: All systems not noted in ROS Statement are negative. Past Medical History Past Medical History: GERD/Reflux Additional Past Medical History / Comment(s): OBSESSIVE COMPULSIVE DISORDER. History of Any Multi-Drug Resistant Organisms: None Reported Past Surgical History: No Surgical Hx Reported Past Psychological History: Anxiety Smoking Status: Never smoker Past Alcohol Use History: None Reported Past Drug Use History: None Reported General Exam - General Exam Comments Initial Comments: PHYSICAL EXAM: General Impression: Alert and oriented x3, not in acute distress HEENT: Normocephalic atraumatic, extra-ocular movements intact, pupils equal and reactive to light bilaterally, mucous membranes moist. Cardiovascular: Heart regular rate and rhythm Chest: Able to complete full sentences, no retractions, no tachypnea Abdomen: abdomen soft, reporting abdominal burning with palpation, non-distende d, no organomegaly Musculoskeletal: Pulses present and equal in all extremities, no peripheral edema Motor: no focal deficits noted Neurological: CN II-XII grossly intact, no focal motor or sensory deficits noted Skin: Intact with no visualized rashes Psych: Normal affect and mood Limitations: no limitations Course Vital Signs 08/14/23 08/14/23 13:29 14:27 Temperature 97.6 F 98 F Pulse Rate 60 59 L Respiratory 18 16 Rate Blood Pressure 150/96 152/89 O2 Sat by Pulse 97 99 Oximetry EKG Findings - EKG Comments: EKG Findings:: My EKG interpretation: Ventricular rate 58, sinus bradycardia,. 167, QRS 104, QTc 392. No NV prolongation, no QTC prolongation, no ST or T-wave changes noted. Overall, this EKG is unremarkable Medical Decision Making - Medical Decision Making Was pt. sent in by a medical professional or institution (, PA, SENIOR NET ARCHITECT, urgent care, hospital, or longterm...) When possible be specific @ -No Did you speak to anyone other than the patient for history (EMS, parent, family, police, friend...)? What history was obtained from this source @ -No Did you review nursing and triage notes (agree or disagree)? Why? @ -I reviewed and agree with nursing and triage notes Were old charts reviewed (outside hosp., previous admission, EMS record, old EKG, old radiological studies, urgent care reports/EKG's, longterm records)? Report findings @ -No old charts were reviewed Differential Diagnosis (chest pain, altered mental status, abdominal pain women, abdominal pain men, vaginal bleeding, musculoskeletal, weakness, fever, dyspnea, syncope, headache, dizziness, GI bleed, back pain, seizure, CVA, palpatations, mental health)? @ -Differential Abdominal Pain Men: Appendicitis, cholecystitis, diverticulosis, ischemic bowel, pancreatitis, hepatitis, UTI, gastroenteritis, AAA, incarcerated hernia, bowel obstruction, constipation, inflammatory bowel, hepatitis, peptic ulcer disease, splenic infarction, perforated viscus, testicular torsion, this is not meant to be an all-inclusive list Differential Chest Pain: Stable Angina, Unstable Angina, STEMI, NSTEMI Aortic Dissection, Pneumothorax, Musculoskeletal, Esophageal Spasm GERD, Cholecystitis, Pancreatitis, Zoster, this is not meant to be an all-inclusive list. EKG interpreted by me (3pts min.). @ -See above X-rays interpreted by me (1pt min.). @ -None done CT interpreted by me (1pt min.). @ -None done U/S interpreted by me (1pt. min.). @ -None done What testing was considered but not performed or refused? (CT, X-rays, U/S, labs)? Why? @ -None What meds were considered but not given or refused? Why? @ -None Was smoking cessation discussed for >3mins.? @ -No Were there social determinants of health that impacted care today? How? (Homelessness, low income, unemployed, alcoholism, drug addiction, transportation, low edu. Level, literacy, decrease access to med. care, [facility], rehab)? @ -No Was there de-escalation of care discussed even if they declined (Discuss DNR or withdrawal of care, Hospice)? DNR status @ -No What co-morbidities impacted this encounter? (DM, HTN, Smoking, COPD, CAD, Cancer, CVA, ARF, Chemo, Hep., AIDS, mental health diagnosis, sleep apnea, morbid obesity)? @ -None Was patient admitted / discharged? Hospital course, mention meds given and route, prescriptions, significant lab abnormalities, going to OR and other pertinent info. @ -38-year-old well-appearing male presents to the ER for chest and abdominal pain. Vital signs stable. Physical examination is benign. Abdomen is soft. Patient's description of his pain is atypical. He does not have significant risk factors. Well-appearing in no acute distress. He has a soft abdomen. His chest pain is described as atypical. Laboratory evaluation obtained. CBC metabolic panel is negative. Troponin negative. Laboratory eval is negative. Abdominal x-ray and chest x-ray shows no acute process. Patient reevaluated at bedside at 3:37 PM found to be in stable condition. Patient advised to follow-up with his primary care doctor. Did you discuss the management of the patient with other professionals (professionals i.e. , PA, SENIOR NET ARCHITECT, lab, RT, psych nurse, social sciences lecturer, lasting machine operator hand method, teacher, traffic control officer, shelter case manager)? Give summary @ -No Was critical care preformed (if so, how long)? @ -No Undiagnosed new problem with uncertain prognosis? @ -No Drug Therapy requiring intensive monitoring for toxicity (Heparin, Nitro, Insulin, Cardizem)? @ -No Were any procedures done? @ -No Diagnosis/symptom? Acute, or Chronic, or Acute on Chronic? Uncomplicated ( without systemic symptoms) or Complicated (systemic symptoms)? @ -Atypical chest pain, abdominal pain, no high risk features Side effects of treatment? @ -No Exacerbation, Progression, or Severe Exacerbation? @ -No Poses a threat to life or bodily function? How? (Chest pain, [place], [place], pneumonia, PE, COPD, DKA, ARF, appy, cholecystitis, CVA, Diverticulitis, Homicidal, Suicidal, threat to staff... and all critical care pts) @ -No - Lab Data Result diagrams: 08/14/23 14:41 08/14/23 14:41 Lab Results 08/14/23 08/14/23 08/14/23 Range/Units 14:41 14:41 14:41 WBC 8.0 (3.8-10.6) k/uL RBC 5.54 (4.30-5.90) m/uL Hgb 15.0 (13.0-17.5) gm/dL Hct 45.9 (39.0-53.0) % MCV 82.9 (80.0-100.0) fL MCH 27.2 (25.0-35.0) pg MCHC 32.8 (31.0-37.0) g/dL RDW 13.0 (11.5-15.5) % Plt Count 196 (150-450) k/uL MPV 8.3 Neutrophils % 74 % Lymphocytes % 16 % Monocytes % 6 % Eosinophils % 2 % Basophils % 0 % Neutrophils # 6.0 (1.3-7.7) k/uL Lymphocytes # 1.3 (1.0-4.8) k/uL Monocytes # 0.5 (0-1.0) k/uL Eosinophils # 0.1 (0-0.7) k/uL Basophils # 0.0 (0-0.2) k/uL Sodium 140 (137-145) mmol/L Potassium 4.0 (3.5-5.1) mmol/L Chloride 105 (98-107) mmol/L Carbon Dioxide 26 (22-30) mmol/L Anion Gap 9 mmol/L BUN 8 L (9-20) mg/dL Creatinine 0.80 (0.66-1.25) mg/dL Est GFR (CKD-EPI)AfAm >90 (>60 ml/min/1.73 sqM) Est GFR (CKD-EPI)NonAf >90 (>60 ml/min/1.73 sqM) Glucose 91 (74-99) mg/dL Calcium 9.1 (8.4-10.2) mg/dL Total Bilirubin 2.4 H (0.2-1.3) mg/dL AST 20 (17-59) U/L ALT 20 (4-49) U/L Alkaline Phosphatase 80 (38-126) U/L Troponin I <0.012 (0.000-0.034) ng/mL Total Protein 6.7 (6.3-8.2) g/dL Albumin 4.4 (3.5-5.0) g/dL Lipase 53 (23-300) U/L Disposition Clinical Impression: Chest pain, Abdominal pain Disposition: HOME SELF-CARE Condition: Good Instructions (If sedation given, give patient instructions): Abdominal Pain (ED), Chest Pain (ED) Is patient prescribed a controlled substance at d/c from ED?: No Referrals: Jason Sanchez MD [Primary Care Provider] - 1-2 days Time of Disposition: 15:38
--- NOTE | 2023-08-14 14:16 | XR ---
EXAMINATION TYPE: XR abdomen acute w cxr DATE OF EXAM: 08/14/2023 COMPARISON: 07/13/2020 HISTORY: Pain TECHNIQUE: Single view of the chest and 2 views of the abdomen are submitted. FINDINGS: Single view of the chest fails demonstrate evidence for acute pulmonary disease. There is no evidence for pneumoperitoneum. The bowel gas pattern is unremarkable as there is air throughout nondilated small and large bowel. No sizeable air fluid levels.No mass effects are seen. No unusual calcifications. IMPRESSION: 1. Unremarkable study.
[2023-08-14 14:40] VITALS: PULSE 59; TEMP 98
[2023-08-14 15:00] LABS: Basophils % (A) 0 %; Eosinophils # (A) 0.1 k/uL (0-0.7); Eosinophils % (A) 2 %; HCT 45.9 % (39.0-53.0); Lymphocytes # (A) 1.3 k/uL (1.0-4.8); Lymphocytes % (A) 16 %; MCH 27.2 pg (25.0-35.0); MCHC 32.8 g/dL (31.0-37.0); MCV 82.9 fL (80.0-100.0); Mean Platelet Volume 8.3; Monocytes # (A) 0.5 k/uL (0-1.0); Monocytes % (A) 6 %; Neutrophils % (A) 74 %; Platelet Count 196 k/uL (150-450); RBC 5.54 m/uL (4.30-5.90)
[2023-08-14 15:18] LABS: ALT 20 U/L (4-49); AST 20 U/L (17-59); African American GFR (CKD) >90 (>60 ml/min/1.73 sqM); Albumin 4.4 g/dL (3.5-5.0); Alkaline Phosphatase 80 U/L (38-126); Anion Gap 9 mmol/L; Blood Urea Nitrogen 8 mg/dL (9-20); Calcium 9.1 mg/dL (8.4-10.2); Carbon Dioxide 26 mmol/L (22-30); Chloride 105 mmol/L (98-107); Glucose 91 mg/dL (74-99); Lipase 53 U/L (23-300); Non-African American GFR(CKD) >90 (>60 ml/min/1.73 sqM); Sodium 140 mmol/L (137-145); Total Bilirubin 2.4 mg/dL (0.2-1.3); Total Protein 6.7 g/dL (6.3-8.2)
[2023-08-14 15:49] VITALS: BP 164/94; RESP 18
== END 2023-08-14 15:49 | disposition home or self-care (01) ==
LOC: EC 13:25
DX: R07.9 Chest pain, unspecified (principal); R10.9 Unspecified abdominal pain; Z88.8 Allergy status to other drugs, medicaments and biological substances
CPT/HCPCS: 36415; 74022; 80053; 83690; 84484; 85025; 93005; 99285

== ENCOUNTER 2023-08-27 06:00 | Emergency (ER) | payer MEDICARE, OTHER ==
[2023-08-27] MEDS: KETOROLAC 15 MG/ML 1 ML VIAL IVP STA ×2 (06:27→07:52)
[2023-08-27] MEDS: SODIUM CHLORIDE 0.9% 1,000 ML IV STA (06:28)
--- NOTE | 2023-08-27 06:32 | ED ---
Abdominal Pain HPI - General Chief Complaint: Abdominal Pain Stated Complaint: ABD Pain Time Seen by Provider: 08/27/23 06:10 Source: patient, RN notes reviewed Mode of arrival: ambulatory Limitations: no limitations - History of Present Illness Initial Comments: This is a 38-year-old male who presents to the emergency department for abdominal pain. Reports generalized abdominal pain over the last couple of days and today it seemed to localize more so to the left lower quadrant and left mid abdomen. Denies any nausea, vomiting, fevers, or chills. He does note struggling with constipation recently. He had a very small bowel movement yesterday and prior to that he had not had a bowel movement for 3 days. He is still passing gas but states that it is minimal. Denies any blood in his stool. He has struggled with constipation in the past and was previously taking MiraLAX. States that he stopped taking it 2 weeks ago because his insurance s topped covering it. MD Complaint: abdominal pain - Related Data Home Medications Medication Instructions Recorded Confirmed Pantoprazole [Protonix] 40 mg PO DAILY 05/13/23 05/14/23 busPIRone HCL [Buspar] 30 mg PO BID 05/13/23 05/14/23 lisinopriL [Zestril] 5 mg PO DAILY 05/13/23 05/14/23 Previous Rx's Medication Instructions Recorded Sucralfate [Carafate] 1 gm PO BID #14 tab 05/20/23 Triamcinolone 0.1% Cream [Kenalog 1 applicatio TOPICAL BID #15 gram 06/24/23 0.1% Cream] Acet/Diph/Lido/Gbpt-Kwb-Cez-Si 5 ml PO Q4-6H PRN #240 ml 06/25/23 [Tyl/Benadryl/Lido/Maalox] polyethylene glycoL 3350 [Miralax] 17 gm PO DAILY 30 Days #527 gm 07/25/23 Lactulose 10 - 20 gm PO DAILY PRN #473 ml 08/27/23 Allergies Allergy/AdvReac Type Severity Reaction Status Date / Time amphetamine aspartate Allergy Unknown Verified 08/27/23 06:07 [From Adderall] Childhood amphetamine sulfate Allergy Unknown Verified 08/27/23 06:07 [From Adderall] Childhood dextroamphetamine saccharate Allergy Unknown Verified 08/27/23 06:07 [From Adderall] Childhood dextroamphetamine sulfate Allergy Unknown Verified 08/27/23 06:07 [From Adderall] Childhood methylphenidate HCl Allergy Unknown Verified 08/27/23 06:07 [From Ritalin] Childhood Review of Systems ROS Statement: Those systems with pertinent positive or pertinent negative responses have been documented in the HPI. ROS Other: All systems not noted in ROS Statement are negative. Past Medical History Past Medical History: GERD/Reflux Additional Past Medical History / Comment(s): OBSESSIVE COMPULSIVE DISORDER. History of Any Multi-Drug Resistant Organisms: None Reported Past Surgical History: No Surgical Hx Reported Past Psychological History: Anxiety Smoking Status: Never smoker Past Alcohol Use History: None Reported Past Drug Use History: None Reported General Exam Limitations: no limitations General appearance: alert, in no apparent distress Head exam: Present: atraumatic, normocephalic, normal inspection Respiratory exam: Present: normal lung sounds bilaterally. Absent: respiratory distress, wheezes, rales, rhonchi, stridor Cardiovascular Exam: Present: regular rate, normal rhythm, normal heart sounds. Absent: systolic murmur, diastolic murmur, rubs, gallop, clicks GI/Abdominal exam: Present: soft, tenderness (LLQ and left mid abdomen), normal bowel sounds. Absent: distended Neurological exam: Present: alert, oriented X3, CN II-XII intact Psychiatric exam: Present: normal affect, normal mood Skin exam: Present: warm, dry, intact, normal color. Absent: rash Course Vital Signs 08/27/23 08/27/23 06:05 07:56 Temperature 97.4 F L 98.2 F Pulse Rate 57 L 54 L Respiratory 18 16 Rate Blood Pressure 165/97 148/98 O2 Sat by Pulse 100 95 Oximetry Medical Decision Making - Medical Decision Making This is a 38 year old male who presents to the emergency department for abdominal pain. Was pt. sent in by a medical professional or institution? @ -No Did you speak to anyone other than the patient for history? @ -No Did you review nursing and triage notes? @ -Yes, and I agree, it is accurate with regards to the patient's symptoms. Were old charts reviewed? @ -No Differential Diagnosis? @ -Differential Abdominal Pain Men: Appendicitis, cholecystitis, diverticulosis, ischemic bowel, pancreatitis, hepatitis, UTI, gastroenteritis, AAA, incarcerated hernia, bowel obstruction, co nstipation, inflammatory bowel, hepatitis, peptic ulcer disease, splenic infarction, perforated viscus, testicular torsion, this is not meant to be an all-inclusive list EKG interpreted by me (3pts min.)? @ -Not obtained X-rays interpreted by me (1pt min.)? @ -KUB x-ray obtained. My interpretation identifies no dilation of the large or small bowel loops. CT interpreted by me (1pt min.)? @ -Not obtained U/S interpreted by me (1pt. min.)? @ -Not obtained What testing was considered but not performed? (CT, X-rays, U/S, labs)? Why? @ -None What meds were considered but not given? Why? @ -None Did you discuss the management of the patient with other professionals? @ -No Did you reconcile home meds? @ -No Was smoking cessation discussed for >3mins.? @ -No Was critical care preformed (if so, how long)? @ -No Were there social determinants of health that impacted care today? How? (Homelessness, low income, unemployed, alcoholism, drug addiction, transportation, low edu. Level, literacy, decrease access to med. care, prison, rehab)? @ -No Was there de-escalation of care discussed even if they declined? (Discuss DNR or withdrawal of care, Hospice)? @ -No What co-morbidities impacted this encounter? (DM, HTN, Smoking, COPD, CAD, Cancer, CVA, Hep., AIDS, mental health diagnosis, sleep apnea, morbid obesity)? @ -OCD Was patient admitted / discharged? @ -Discharged. Lab work unremarkable. Elevated bilirubin is improved when c ompared with prior, but always present. Urinalysis negative for signs of infection. KUB x-ray obtained demonstrating fecal material and gas throughout the colon with mild colonic stool burden. There is no evidence of obstructive process. Patient was treated with IV fluids, Toradol, and Tylenol in the emergency department. Advised kvmq-gwz-[id number] Benefiber daily as well as considering beginning a daily probiotic to help with maintaining regular bowel movements. We also discussed being sure that he remains well-hydrated and increasing physical activity. Advised follow-up with his primary care provider for reevaluation and discussion of additional treatment options if symptoms persist. Undiagnosed new problem with uncertain prognosis? @ -None Drug Therapy requiring intensive monitoring for toxicity (Heparin, Nitro, Insulin, Cardizem)? @ -None Were any procedures done? @ -None Diagnosis/symptom? @ -Abdominal pain, constipation Acute, or Chronic, or Acute on Chronic? @ -Acute Uncomplicated (without systemic symptoms) or Complicated (systemic symptoms)? @ -Uncomplicated Side effects of treatment? @ -None Exacerbation, Progression, or Severe Exacerbation] @ -Not applicable Poses a threat to life or bodily function? @ -No Return precautions reviewed in depth, the patient is instructed to return to the emergency department with any new, worsening, or concerning symptoms. Patient verbalized understanding. This case was discussed in detail with the attending ED physician, Dr. Merritt. Presentation, findings, and treatment plan discussed in detail as well. - Lab Data Result diagrams: 08/27/23 06:21 08/27/23 06:21 Lab Results 08/27/23 08/27/23 08/27/23 Range/Units 06:21 06:21 06:21 WBC 7.5 (3.8-10.6) k/uL RBC 5.87 (4.30-5.90) m/uL Hgb 15.7 (13.0-17.5) gm/dL Hct 50.0 (39.0-53.0) % MCV 85.1 (80.0-100.0) fL MCH 26.7 (25.0-35.0) pg MCHC 31.4 (31.0-37.0) g/dL RDW 13.1 (11.5-15.5) % Plt Count 211 (150-450) k/uL MPV 8.4 Neutrophils % 54 % Lymphocytes % 33 % Monocytes % 7 % Eosinophils % 5 % Basophils % 1 % Neutrophils # 4.1 (1.3-7.7) k/uL Lymphocytes # 2.5 (1.0-4.8) k/uL Monocytes # 0.5 (0-1.0) k/uL Eosinophils # 0.4 (0-0.7) k/uL Basophils # 0.1 (0-0.2) k/uL Sodium 141 (137-145) mmol/L Potassium 4.0 (3.5-5.1) mmol/L Chloride 105 (98-107) mmol/L Carbon Dioxide 27 (22-30) mmol/L Anion Gap 9 mmol/L BUN 6 L (9-20) mg/dL Creatinine 0.86 (0.66-1.25) mg/dL Est GFR (CKD-EPI)AfAm >90 (>60 ml/min/1.73 sqM) Est GFR (CKD-EPI)NonAf >90 (>60 ml/min/1.73 sqM) Glucose 94 (74-99) mg/dL Plasma Lactic Acid [place] 1.3 (0.7-2.0) mmol/L Calcium 9.4 (8.4-10.2) mg/dL Total Bilirubin 2.0 H (0.2-1.3) mg/dL AST 20 (17-59) U/L ALT 17 (4-49) U/L Alkaline Phosphatase 79 (38-126) U/L Total Protein 7.3 (6.3-8.2) g/dL Albumin 4.9 (3.5-5.0) g/dL Amylase 55 (30-110) U/L Lipase 50 (23-300) U/L Urine Color Urine Appearance (Clear) Urine pH (5.0-8.0) Ur Specific [place] (1.001-1.035) Urine Protein (Negative) Urine Glucose (UA) (Negative) Urine Ketones (Negative) Urine Blood (Negative) Urine Nitrite (Negative) Urine Bilirubin (Negative) Urine Urobilinogen (<2.0) mg/dL Ur Leukocyte Esterase (Negative) 08/27/23 Range/Units 06:29 WBC (3.8-10.6) k/uL RBC (4.30-5.90) m/uL Hgb (13.0-17.5) gm/dL Hct (39.0-53.0) % MCV (80.0-100.0) fL MCH (25.0-35.0) pg MCHC (31.0-37.0) g/dL RDW (11.5-15.5) % Plt Count (150-450) k/uL MPV Neutrophils % % Lymphocytes % % Monocytes % % Eosinophils % % Basophils % % Neutrophils # (1.3-7.7) k/uL Lymphocytes # (1.0-4.8) k/uL Monocytes # (0-1.0) k/uL Eosinophils # (0-0.7) k/uL Basophils # (0-0.2) k/uL Sodium (137-145) mmol/L Potassium (3.5-5.1) mmol/L Chloride (98-107) mmol/L Carbon Dioxide (22-30) mmol/L Anion Gap mmol/L BUN (9-20) mg/dL Creatinine (0.66-1.25) mg/dL Est GFR (CKD-EPI)AfAm (>60 ml/min/1.73 sqM) Est GFR (CKD-EPI)NonAf (>60 ml/min/1.73 sqM) Glucose (74-99) mg/dL Plasma Lactic Acid [place] (0.7-2.0) mmol/L Calcium (8.4-10.2) mg/dL Total Bilirubin (0.2-1.3) mg/dL AST (17-59) U/L ALT (4-49) U/L Alkaline Phosphatase (38-126) U/L Total Protein (6.3-8.2) g/dL Albumin (3.5-5.0) g/dL Amylase (30-110) U/L Lipase (23-300) U/L Urine Color Light Yellow Urine Appearance Clear (Clear) Urine pH 6.0 (5.0-8.0) Ur Specific [place] 1.018 (1.001-1.035) Urine Protein Negative (Negative) Urine Glucose (UA) Negative (Negative) Urine Ketones Negative (Negative) Urine Blood Negative (Negative) Urine Nitrite Negative (Negative) Urine Bilirubin Negative (Negative) Urine Urobilinogen <2.0 (<2.0) mg/dL Ur Leukocyte Esterase Negative (Negative) - Radiology Data Radiology results: report reviewed, image reviewed Disposition Clinical Impression: Constipation, Abdominal pain Disposition: HOME SELF-CARE Instructions (If sedation given, give patient instructions): Constipation (ED), High Fiber Diet (ED), Abdominal Pain (ED) Additional Instructions: Return to the emergency department with any new, worsening, or concerning symptoms. Try switching to [id number] Benefiber powder in place of the fiber Gummies. You can also try taking a daily probiotic. Drink more fluids and try to increase your daily activity. Take Tylenol as needed for pain relief. If you become incredibly constipated you can try [id number]-[id number] Colace or Magnesium citrate. Follow up with your primary care provider in 1-2 days. Prescriptions: Lactulose 10 - 20 gm PO DAILY PRN #473 ml PRN Reason: Constipation Is patient prescribed a controlled substance at d/c from ED?: No Referrals: Jason Sanchez MD [Primary Care Provider] - 1-2 days Time of Disposition: 07:35
[2023-08-27 06:40] LABS: Basophils # (A) 0.1 k/uL (0-0.2); Basophils % (A) 1 %; Eosinophils # (A) 0.4 k/uL (0-0.7); Eosinophils % (A) 5 %; HGB 15.7 gm/dL (13.0-17.5); Lymphocytes # (A) 2.5 k/uL (1.0-4.8); Lymphocytes % (A) 33 %; MCH 26.7 pg (25.0-35.0); MCHC 31.4 g/dL (31.0-37.0); MCV 85.1 fL (80.0-100.0); Mean Platelet Volume 8.4; Monocytes # (A) 0.5 k/uL (0-1.0); Monocytes % (A) 7 %; Neutrophils # (A) 4.1 k/uL (1.3-7.7); Neutrophils % (A) 54 %; Platelet Count 211 k/uL (150-450); RBC 5.87 m/uL (4.30-5.90); RDW 13.1 % (11.5-15.5); WBC 7.5 k/uL (3.8-10.6)
[2023-08-27 06:41] LABS: Appearance,Urine Clear (Clear); Bilirubin,Urine Negative (Negative); Blood,Urine Negative (Negative); Color,Urine Light Yellow; Glucose,Urine (UA) Negative (Negative); Ketones,Urine Negative (Negative); Leukocyte Esterase,Urine Negative (Negative); Nitrite,Urine Negative (Negative); Protein,Urine Negative (Negative); Specific Gravity,Urine 1.018 (1.001-1.035); Urobilinogen,Urine <2.0 mg/dL (<2.0)
[2023-08-27 07:05] LABS: ALT 17 U/L (4-49); AST 20 U/L (17-59); African American GFR (CKD) >90 (>60 ml/min/1.73 sqM); Albumin 4.9 g/dL (3.5-5.0); Alkaline Phosphatase 79 U/L (38-126); Amylase 55 U/L (30-110); Anion Gap 9 mmol/L; Blood Urea Nitrogen 6 mg/dL (9-20); Calcium 9.4 mg/dL (8.4-10.2); Carbon Dioxide 27 mmol/L (22-30); Chloride 105 mmol/L (98-107); Glucose 94 mg/dL (74-99); Lipase 50 U/L (23-300); Non-African American GFR(CKD) >90 (>60 ml/min/1.73 sqM); Sodium 141 mmol/L (137-145); Total Protein 7.3 g/dL (6.3-8.2)
--- NOTE | 2023-08-27 07:22 | XR ---
EXAMINATION TYPE: XR KUB DATE OF EXAM: 08/27/2023 6:53 AM CLINICAL INDICATION:Male, 38 years old with history of abdominal pain; H COMPARISON: None. TECHNIQUE: Upright radiographic view/s of the abdomen/pelvis obtained. FINDINGS: The bowel gas pattern is nonspecific, likely nonobstructive without dilated loops of small or large b owel. Fecal material and gas are demonstrated throughout the colon and rectum. Mild colonic stool bur den. No gross evidence of organomegaly. No evidence of pneumoperitoneum. No pathologic calcifications are seen. Osseous structures appear grossly intact. Mild levocurvature at the thoracolumbar juncti on region. IMPRESSION: Nonspecific, likely nonobstructive bowel gas pattern. If concern persists, consider follow-up radiogr aphs and/or CT.
[2023-08-27] MEDS: ACETAMINOPHEN TAB 500 MG TAB PO STA (07:53)
[2023-08-27 07:57] VITALS: BP 148/98; PULSE 54; RESP 16; TEMP 98.2
== END 2023-08-27 07:57 | disposition home or self-care (01) ==
LOC: EC 06:00
DX: K59.00 Constipation, unspecified (principal); Z88.8 Allergy status to other drugs, medicaments and biological substances
CPT/HCPCS: 36415; 80053; 82150; 83605; 83690; 85025; 81003; 74018; 99284; 96374; 96376; 96361; J1885

== ENCOUNTER 2023-09-18 15:34 | Emergency (ER) | payer OTHER, MEDICARE ==
[2023-09-18 15:51] VITALS: RESP 18
--- NOTE | 2023-09-18 16:39 | XR ---
EXAMINATION TYPE: XR chest 2V DATE OF EXAM: 09/18/2023 4:20 PM CLINICAL INDICATION:Male, 38 years old with history of pain; [facility] COMPARISON: Chest radiographs from 05/14/2023 TECHNIQUE: XR chest 2V Frontal view of the chest. FINDINGS: Lungs/Pleura: There is no evidence of pleural effusion, focal consolidation, or pneumothorax. Pulmonary vascularity: Unremarkable. Heart/mediastinum: Cardiomediastinal silhouette is unremarkable. Musculoskeletal: No acute osseous pathology. IMPRESSION: No acute cardiopulmonary disease/process.
[2023-09-18 18:12] LABS: Basophils % (A) 0 %; Eosinophils # (A) 0.5 k/uL (0-0.7); Eosinophils % (A) 4 %; HCT 45.3 % (39.0-53.0); HGB 14.7 gm/dL (13.0-17.5); Lymphocytes # (A) 1.8 k/uL (1.0-4.8); Lymphocytes % (A) 15 %; MCH 26.9 pg (25.0-35.0); MCHC 32.3 g/dL (31.0-37.0); MCV 83.2 fL (80.0-100.0); Monocytes # (A) 0.6 k/uL (0-1.0); Monocytes % (A) 5 %; Neutrophils # (A) 8.9 k/uL (1.3-7.7); Neutrophils % (A) 75 %; Platelet Count 231 k/uL (150-450); RBC 5.45 m/uL (4.30-5.90); RDW 13.3 % (11.5-15.5); WBC 11.9 k/uL (3.8-10.6)
[2023-09-18 18:27] LABS: ALT 26 U/L (4-49); AST 24 U/L (17-59); African American GFR (CKD) >90 (>60 ml/min/1.73 sqM); Albumin 4.7 g/dL (3.5-5.0); Alkaline Phosphatase 68 U/L (38-126); Anion Gap 8 mmol/L; Blood Urea Nitrogen 10 mg/dL (9-20); Calcium 9.4 mg/dL (8.4-10.2); Carbon Dioxide 25 mmol/L (22-30); Chloride 106 mmol/L (98-107); Glucose 98 mg/dL (74-99); Lipase 53 U/L (23-300); Non-African American GFR(CKD) >90 (>60 ml/min/1.73 sqM); Potassium 4.4 mmol/L (3.5-5.1); Sodium 139 mmol/L (137-145); Total Bilirubin 1.6 mg/dL (0.2-1.3); Total Protein 7.4 g/dL (6.3-8.2)
[2023-09-18] MEDS: methocarbamoL 750 MG TAB PO STA (18:29)
[2023-09-18] MEDS: KETOROLAC 15 MG/ML 1 ML VIAL IVP STA (18:29)
--- NOTE | 2023-09-18 18:53 | ED ---
Chest Pain HPI - General Chief Complaint: Chest Pain Stated Complaint: Chest pain Time Seen by Provider: 09/18/23 17:30 Source: patient Mode of arrival: ambulatory Limitations: no limitations - History of Present Illness Initial Comments: 38-year-old male presents emergency department reporting chest pain. States that he woke up this morning with the pain. Its located over the right chest wall. States the pain is reproducible when he moves his neck to the left. Reports that he may have slept wrong. He did not attempt to take any medications prior to coming in. He denies any history of cardiac disease. No fevers, chills or cough. No history of DVT or PE. This is not a pleuritic pain. No calf pain or swelling. No ripping or tearing sensation to his back. No other alleviating, precipitating or modifying factors - Related Data Home Medications Medication Instructions Recorded Confirmed Pantoprazole [Protonix] 40 mg PO DAILY 05/13/23 05/14/23 busPIRone HCL [Buspar] 30 mg PO BID 05/13/23 05/14/23 lisinopriL [Zestril] 5 mg PO DAILY 05/13/23 05/14/23 Previous Rx's Medication Instructions Recorded Sucralfate [Carafate] 1 gm PO BID #14 tab 05/20/23 Triamcinolone 0.1% Cream [Kenalog 1 applicatio TOPICAL BID #15 gram 06/24/23 0.1% Cream] Acet/Diph/Lido/Nwsu-Rcl-Pdd-Si 5 ml PO Q4-6H PRN #240 ml 06/25/23 [Tyl/Benadryl/Lido/Maalox] polyethylene glycoL 3350 [Miralax] 17 gm PO DAILY 30 Days #527 gm 07/25/23 Lactulose 10 - 20 gm PO DAILY PRN #473 ml 08/27/23 Lidocaine 5% Patch [Lidoderm] 1 patch TOPICAL DAILY #30 patch 09/18/23 methocarbamoL [Robaxin-750] 750 mg PO QID PRN #30 tab 09/18/23 Allergies Allergy/AdvReac Type Severity Reaction Status Date / Time amphetamine aspartate Allergy Unknown Verified 09/18/23 15:51 [From Adderall] Childhood amphetamine sulfate Allergy Unknown Verified 09/18/23 15:51 [From Adderall] Childhood dextroamphetamine saccharate Allergy Unknown Verified 09/18/23 15:51 [From Adderall] Childhood dextroamphetamine sulfate Allergy Unknown Verified 09/18/23 15:51 [From Adderall] Childhood methylphenidate HCl Allergy Unknown Verified 09/18/23 15:51 [From Ritalin] Childhood Review of Systems ROS Statement: Those systems with pertinent positive or pertinent negative responses have been documented in the HPI. ROS Other: All systems not noted in ROS Statement are negative. Past Medical History Past Medical History: GERD/Reflux Additional Past Medical History / Comment(s): OBSESSIVE COMPULSIVE DISORDER. History of Any Multi-Drug Resistant Organisms: None Reported Past Surgical History: No Surgical Hx Reported Past Psychological History: Anxiety Smoking Status: Never smoker Past Alcohol Use History: None Reported Past Drug Use History: None Reported General Exam Limitations: no limitations General appearance: alert, in no apparent distress Head exam: Present: atraumatic, normocephalic, normal inspection Eye exam: Present: normal appearance, PERRL, EOMI. Absent: scleral icterus, conjunctival injection, periorbital swelling ENT exam: Present: normal exam, mucous membranes moist Neck exam: Present: normal inspection. Absent: tenderness, meningismus, lymphadenopathy Respiratory exam: Present: normal lung sounds bilaterally, chest wall tenderness (Tenderness to palpation of the right pectoral muscle). Absent: respiratory distress, wheezes, rales, rhonchi, stridor Cardiovascular Exam: Present: regular rate, normal rhythm, normal heart sounds. Absent: systolic murmur, diastolic murmur, rubs, gallop, clicks GI/Abdominal exam: Present: soft, normal bowel sounds. Absent: distended, tenderness, guarding, rebound, rigid Extremities exam: Present: normal inspection, full ROM, normal capillary refill. Absent: tenderness, pedal edema, joint swelling, calf tenderness Back exam: Present: normal inspection Neurological exam: Present: alert, oriented X3, CN II-XII intact Psychiatric exam: Present: normal affect, normal mood Skin exam: Present: warm, dry, intact, normal color. Absent: rash Course Vital Signs 09/18/23 09/18/23 09/18/23 15:50 18:42 19:22 Temperature 98.3 F 98.1 F Pulse Rate 59 L 52 L 54 L Respiratory 18 18 18 Rate Blood Pressure 132/77 130/80 125/88 O2 Sat by Pulse 98 99 100 Oximetry Chest Pain MDM - MDM Was pt. sent in by a medical professional or institution (, PA, INTERPERSONAL COMMUNICATIONS PROFESSOR, urgent care, hospital, or prison...) When possible be specific @ -No Did you speak to anyone other than the patient for history (EMS, parent, family, police, friend...)? What history was obtained from this source @ -No Did you review nursing and triage notes (agree or disagree)? Why? @ -I reviewed and agree with nursing and triage notes Were old charts reviewed (outside hosp., previous admission, EMS record, old EKG, old radiological studies, urgent care reports/EKG's, prison records)? Report findings @ -No old charts were reviewed Differential Diagnosis (chest pain, altered mental status, abdominal pain women, abdominal pain men, vaginal bleeding, weakness, fever, dyspnea, syncope, headache, dizziness, GI bleed, back pain, seizure, CVA, palpatations, mental health, musculoskeletal)? @ -Differential Chest Pain: Stable Angina, Unstable Angina, STEMI, NSTEMI Aortic Dissection, Pneumothorax, Musculoskeletal, Esophageal Spasm GERD, Cholecystitis, Pancreatitis, Zoster, this is not meant to be an all-inclusive list. EKG interpreted by me (3pts min.). @ -Yes and demonstrates sinus bradycardia with a rate of 52. SD interval 171. QRS 90. Qtc 371. Q wave in lead III. No acute ST segment elevation X-rays interpreted by me (1pt min.). @Yes and demonstrates no acute process CT interpreted by me (1pt min.). @ -None done U/S interpreted by me (1pt. min.). @ -None done What testing was considered but not performed or refused? (CT, X-rays, U/S, labs)? Why? @ -None What meds were considered but not given or refused? Why? @ -None Did you discuss the management of the patient with other professionals (professionals i.e. , OSWALDO, INTERPERSONAL COMMUNICATIONS PROFESSOR, lab, RT, psych nurse, social and political studies professor, vp communications, teacher, policy officer, casey saw operator)? Give summary @ -No Was smoking cessation discussed for >3mins.? @ -No Was critical care preformed (if so, how long)? @ -No Were there social determinants of health that impacted care today? How? (Homelessness, low income, unemployed, alcoholism, drug addiction, transportation, low edu. Level, literacy, decrease access to med. care, [place] [facility], rehab)? @ -No Was there de-escalation of care discussed even if they declined (Discuss DNR or withdrawal of care, Hospice)? DNR status @ -No What co-morbidities impacted this encounter? (DM, HTN, Smoking, COPD, CAD, Cancer, CVA, ARF, Chemo, Hep., AIDS, mental health diagnosis, sleep apnea, morbid obesity)? @ -None Was patient admitted / discharged? Hospital course, mention meds given and route, prescriptions, significant lab abnormalities, going to OR and other pertinent info. @ -Upon arrival patient seen and evaluated in room 8. Thorough history and physical exam was performed. Patient given a dose of Toradol. Laboratory studies are conducted. Results were discussed with the patient. Symptoms do seem consistent with musculoskeletal strain. Patient is to take Tylenol for pain at home and place warm compresses to the site. Follow-up with his doctor and return for any new or worsening symptoms Undiagnosed new problem with uncertain prognosis? @ -No Drug Therapy requiring intensive monitoring for toxicity (Heparin, Nitro, Insu robyn, Cardizem)? @ -No Were any procedures done? @ -No Diagnosis/symptom? @ -Acute chest wall pain Acute, or Chronic, or Acute on Chronic? @ -Acute Uncomplicated (without systemic symptoms) or Complicated (systemic symptoms)? @ -Complicated Side effects of treatment? @ -No Exacerbation, Progression, or Severe Exacerbation? @ -No Poses a threat to life or bodily function? How? (Chest pain, [place], [place], pneumonia, PE, COPD, DKA, ARF, appy, cholecystitis, CVA, Diverticulitis, Homicidal, Suicidal, threat to staff... and all critical care pts) @ -No Disposition Clinical Impression: Chest wall pain Disposition: HOME SELF-CARE Condition: Stable Instructions (If sedation given, give patient instructions): Chest Wall Pain (ED) Additional Instructions: Please take the medications that you have been prescribed as directed. Follow- up with your primary care doctor and return for any new or worsening symptoms Prescriptions: Lidocaine 5% Patch [Lidoderm] 1 patch TOPICAL DAILY #30 patch methocarbamoL [Robaxin-750] 750 mg PO QID PRN #30 tab PRN Reason: Muscle Pain Is patient prescribed a controlled substance at d/c from ED?: No Referrals: Jason Sanchez MD [Primary Care Provider] - 1-2 days Time of Disposition: 18:52
[2023-09-18 19:23] VITALS: BP 125/88; PULSE 54; TEMP 98.1
== END 2023-09-18 19:37 | disposition home or self-care (01) ==
LOC: EC 15:34
DX: R07.89 Other chest pain (principal); R00.1 Bradycardia, unspecified; Z88.8 Allergy status to other drugs, medicaments and biological substances
CPT/HCPCS: 36415; 93005; 80053; 83690; 84484; 85025; 71046; 99285; 96374; J1885

== ENCOUNTER → 2023-12-26 | Outpatient (CLI) | payer MEDICARE, OTHER ==
--- NOTE | 2023-12-26 14:36 | US ---
EXAMINATION TYPE: US gallbladder DATE OF EXAM: 12/26/2023 COMPARISON: NONE CLINICAL INDICATION: Male, 38 years old with history of R10.11 Right upper quadrant pain; R19.5 Green stoo; RUQ pain TECHNIQUE: Grayscale and color Doppler imaging of the right upper quadrant was performed. FINDINGS: EXAM MEASUREMENTS: Liver Length: 16.9 cm Gallbladder Wall: contracted, unable to obtain accurate measurement CBD: obscured by bowel gas Right Kidney: 12.4x4.7x4.5 cm HOTEL HOUSEKEEPER NOTES: Pancreas: Tail obscured by overlying bowel gas Liver: wnl as best visualized Gallbladder: contracted, unable to assess proberly. Pt. denies eating Evidence for sonographic Cao's sign: No CBD: Obscured by overlying bowel gas Right Kidney: wnl exam limited by bowel gas and body habitus, patient cooperation IMPRESSION: Limited study. Overall no significant abnormality appreciated. [facility], , 12/26/2023 2:34 PM
== END | disposition home or self-care (01) ==
LOC: RADUSWWP 09:22
PROVIDERS: ATTEND Family Medicine
DX: R10.11 Right upper quadrant pain (principal)
CPT/HCPCS: 76705

== ENCOUNTER → 2024-05-04 | Outpatient (CLI) | payer MEDICARE, OTHER ==
--- NOTE | 2024-05-04 10:02 | US ---
EXAMINATION TYPE: US abdomen complete DATE OF EXAM: 05/04/2024 COMPARISON: 12/26/23 CLINICAL INDICATION: Male, 38 years old with history of R10.12 LEFT LOWER QUADRANT PAIN; LUQ pain x 1 month TECHNIQUE: Grayscale and color Doppler imaging of the abdomen was performed. FINDINGS: EXAM MEASUREMENTS: Liver Length: 16.4 cm Gallbladder Wall: 0.16 cm CBD: 0.49 cm, color Doppler imaging was utilized to isolate the common bile duct for measurement. Spleen: 12.3 cm Right Kidney: 11.3 x 4.7 x 5.1 cm Left Kidney: 11.9 x 5.3 x 5.9 cm CHILD LIFE ASSISTANT NOTES: Pancreas: tail obscured by overlying bowel gas, parts seen appear wnl Liver: heterogeneous with increased echotexture. No suspicious masses. Gallbladder: wnl Evidence for sonographic Cao's sign: No CBD: wnl Spleen: wnl Right Kidney: wnl, No hydronephrosis, calculi or masses seen Left Kidney: cystic area seen medially measuring 3.7 x 2.7 x 2.8cm Upper IVC: wnl Abd Aorta: prox limited due to overlying bowel gas The liver is homogenous used echotexture.. The intrahepatic portion of the IVC and proximal abdomina l aorta are within normal limits. There is no evidence of cholelithiasis. Common bile duct is unrem arkable. The visualized portions of the pancreas are homogenous. The spleen is unremarkable. Kidne ys are symmetric and free of hydronephrosis. No renal lesions are seen. IMPRESSION: 1. No evidence for acute process. 2. Left renal cyst. 3. Hepatic steatosis. [facility], , 05/04/2024 10:00 AM
== END | disposition home or self-care (01) ==
LOC: RADUSWWP 09:21
PROVIDERS: ATTEND Family Medicine
DX: K76.0 Fatty (change of) liver, not elsewhere classified (principal); N28.1 Cyst of kidney, acquired
CPT/HCPCS: 76700